=== PATIENT | male | born 2000 | race African-American/Black ===

== ENCOUNTER 2024-07-18 09:14 | Emergency (ER) | payer MEDICAID, SELFPAY ==
[2024-07-18 09:15] VITALS: BMI 24.4
[2024-07-18 09:24] VITALS: BP 113/81; PULSE 81; RESP 16; TEMP 37.1; O2SAT 95; BMI 27.3
--- NOTE | 2024-07-18 09:30 | PD.EDSEIZ ---
ED Seizures RME/HPI General Chief Complaint: Seizure Stated Complaint: POSSIBLE SZ THIS AM OR LAST NIGHT HX OF Time Seen by Provider: 07/18/24 09:17 Arrival date/time: 07/18/24 09:14 23-year-old male with seizure disorder currently on Keppra presents to the emergency department today stating that he had a seizure last night. Patient ports no head injury or neck injury patient reports no chest pain or shortness of breath or abdominal pain patient reports he feels fine at this time just wanted to be evaluated Limitations: no limitations Related Data Home Medications ?Medication ?Instructions ?Recorded ?Confirmed levetiracetam 1,000 mg tablet 1,000 mg PO BID 02/03/23 07/06/23 levetiracetam 1,000 mg tablet 1,500 mg PO BID 07/06/23 07/06/23 (Keppra) Previous Rx's ?Medication ?Instructions ?Recorded levetiracetam 1,000 mg tablet 1,000 mg PO BID #60 tabs 04/05/23 (Keppra) amoxicillin 875 mg-potassium 1 tab PO BID #14 tabs 07/08/23 clavulanate 125 mg tablet doxycycline hyclate 100 mg capsule 100 mg PO BID #14 caps 07/08/23 ibuprofen 600 mg tablet 600 mg PO Q8H PRN fever or pain 01/03/24 #20 tabs Allergies Allergy/AdvReac Type Severity Reaction Status Date / Time No Known Allergies Allergy Verified 07/18/24 09:19 Review of Systems Review of Systems Systems Reviewed: All systems reviewed, normal except as documented Constitutional Constitutional: Reports system reviewed and no additional complaints, except as documented, Denies fever(s) and Denies headache(s) Eyes Eyes: Reports system reviewed and no additional complaints, except as documented and Denies blurry vision ENT Ears, Nose, Mouth, and Throat: Reports system reviewed and no additional complaints, except as documented, Denies headache(s), Denies nasal congestion and Denies nasal discharge Cardiovascular Cardiovascular: Reports system reviewed and no additional complaints, except as documented, Denies chest pain and Denies dyspnea Respiratory Respiratory: Reports system reviewed and no additional complaints, except as documented, Denies chest congestion, Denies cough and Denies dyspnea Gastrointestinal Gastrointestinal: Reports system reviewed and no additional complaints, except as documented and Denies abdominal pain Integumentary/Breasts Skin/Breast: Reports system reviewed and no additional complaints, except as documented and Denies rash Neurologic Neurologic: Reports system reviewed and no additional complaints, except as documented, Reports as per HPI and Denies headache(s) Past Medical History Past Medical History NEUROLOGIC: Negative Neurological Disorders CARDIAC: Negative Cardiac Disorders ED Exam General Limitations: Present no limitations General appearance: Present alert and in no apparent distress Head Head exam: Present atraumatic, normocephalic and normal inspection Eye Eye exam: Present normal appearance, PERRL and EOMI; Absent conjunctival injection ENT ENT exam: Present normal exam, normal oropharynx and mucous membranes moist Neck Neck exam: Present normal inspection, full ROM and trachea midline Chest Chest inspection: Present normal inspection and symmetric chest wall rise Respiratory Respiratory exam: Present normal lung sounds bilaterally; Absent respiratory distress Cardiovascular Cardiovascular exam: Present regular rate, normal rhythm and normal heart sounds Abdominal Exam Abdominal exam: Present soft and normal bowel sounds; Absent distention, tenderness, guarding, rebound or rigidity Extremities Exam Extremities exam: Present normal inspection and full ROM Back Exam Back exam: Present normal inspection and full ROM Neurological Exam Neurological exam: Present alert, oriented X3, CN II-XII intact, normal gait and reflexes normal; Absent motor sensory deficit Psychiatric Psychiatric exam: Present normal affect and normal mood Skin Skin exam: Present warm, dry, intact and normal color Course Quality Measures none Vital Signs Vital signs: Vital Signs Temperature 98.7 F 07/18/24 09:24 Pulse Rate 81 07/18/24 09:24 Respiratory Rate 16 07/18/24 09:24 Blood Pressure 113/81 07/18/24 09:24 Pulse Oximetry (%) 95 07/18/24 09:24 Oxygen Delivery Method Room Air 07/18/24 09:24 O2 saturation 95% room air within normal limits Seizure MDM Narrative MDM Narrative:: 23-year-old male with seizure disorder currently on Keppra presents to the emergency department today stating that he had a seizure last night. Patient ports no head injury or neck injury patient reports no chest pain or shortness of breath or abdominal pain patient reports he feels fine at this time just wanted to be evaluated On exam patient well-appearing patient walks with steady gait patient has no abnormal neurological findings Patient reports that he took his Keppra today and take his Keppra regularly As patient has no abnormal neurological findings patient walks with steady gait patient will be discharged home Patient discharged home in no distress to follow-up with primary care doctor in the next 24 to 48 hours and for any worsening symptoms to return to the ER immediately Patient data External records reviewed:: [facility] previous records Clinical information provided by:: patient Social determinants that could affect healthcare access:: none Patient has the following chronic illnesses:: None How is presenting disease/condition affected by chronic disease/condition?: no chronic disease Evaluation data The following diagnostics were reviewed and interpreted by me:: other (specify) (N/A) Lab and/or radiology exams considered but not ordered:: Consider not ordered Interpretation Summary: N/A Medications / Prescriptions Medications or Prescriptions considered but not ordered:: No meds Medication administrations:: No meds Consultations Consultation(s) initiated? (list below): No Diagnosis Seizure Differential Diagnosis: intractable seizure disorder, febrile convulsion, focal seizure, generalized seizure, new onset seizure and epileptic seizure Most likely diagnosis given after review of the tests above:: Seizure breakthrough Admission Indicated Admission indicated?: not indicated Admission Request Was there a request for admission?: No Disposition Plan Disposition Plan: Discharge Discharge Attestation Discharge Attestation: The patient and all family members were given an opportunity to ask questions and understood the discharge instructions. Discharge instructions specifically effects, indications for sooner follow up or return to the emergency department, and the expected course of current diagnosis. Patient condition: Stable Discharge Plan Plan Patient Disposition: HOME (Self Care) Disposition Comment: Stable Prescriptions/Referrals Prescriptions/Med Rec: No Action levetiracetam [Keppra] 1,000 mg tablet 1,000 mg PO BID Qty: 60 0RF Patient Comments: Dose been changed. levetiracetam [Keppra] 1,000 mg tablet 1,500 mg PO BID amoxicillin-pot clavulanate 875-125 mg tablet 1 tab PO BID Qty: 14 0RF doxycycline hyclate 100 mg capsule 100 mg PO BID Qty: 14 0RF ibuprofen 600 mg tablet 600 mg PO Q8H PRN (Reason: fever or pain) Qty: 20 0RF levetiracetam 1,000 mg tablet 1,000 mg PO BID Patient Comments: take 1 tablet by mouth twice a day Problem List Clinical Impression: Breakthrough seizure Patient/Caregiver Discharge Instructions Education Materials: ED Seizure, Recurrent (Adult) Additional Instructions: Please follow up with your primary care doctor in the next 24-48hrs for any worsening symptoms return here immediately Print Language: Divehi Stand Alone Forms: Lucille Award Info., Patient Portal Info Letter PA/SEMICONDUCTOR TESTING GROUP LEADER Supervising Physician PA/SEMICONDUCTOR TESTING GROUP LEADER Supervising Physician: Dr Saez
== END 2024-07-18 09:44 | disposition home or self-care (01) ==
LOC: SERX 09:38
PROVIDERS: Emergency Provider Emergency Medicine
DX: R56.9 Unspecified convulsions (principal)
CPT/HCPCS: 99281

== ENCOUNTER 2024-07-23 00:33 | Emergency (ER) | payer MEDICAID, SELFPAY ==
[2024-07-23 00:34] VITALS: BMI 27.2
[2024-07-23 00:39] VITALS: BP 98/65; PULSE 76; RESP 18; TEMP 36.6; O2SAT 96
--- NOTE | 2024-07-23 01:16 | PD.EDMALE ---
ED Male Genitalurinary RME/HPI General Chief complaint: Abdominal Pain Stated complaint: LEFT GROIN PAIN Time Seen by Provider: 07/23/24 00:57 Arrival date/time: 07/23/24 00:33 23M with history of seizures presents to ED with L inner thigh/groin pain. Patient denies fall/trauma, penile discharge, flank pain, testicular pain, and hematuria/dysuria. Limitations: no limitations Related Data Home Medications ?Medication ?Instructions ?Recorded ?Confirmed levetiracetam 1,000 mg tablet 1,000 mg PO BID 02/03/23 07/06/23 levetiracetam 1,000 mg tablet 1,500 mg PO BID 07/06/23 07/06/23 (Keppra) Previous Rx's ?Medication ?Instructions ?Recorded levetiracetam 1,000 mg tablet 1,000 mg PO BID #60 tabs 04/05/23 (Keppra) amoxicillin 875 mg-potassium 1 tab PO BID #14 tabs 07/08/23 clavulanate 125 mg tablet doxycycline hyclate 100 mg capsule 100 mg PO BID #14 caps 07/08/23 ibuprofen 600 mg tablet 600 mg PO Q8H PRN fever or pain 01/03/24 #20 tabs Allergies Allergy/AdvReac Type Severity Reaction Status Date / Time No Known Allergies Allergy Verified 07/23/24 00:35 Review of Systems Review of Systems Systems Reviewed: All systems reviewed, normal except as documented Constitutional Constitutional: Reports system reviewed and no additional complaints, except as documented, Denies fever(s) and Denies headache(s) ENT Ears, Nose, Mouth, and Throat: Denies disequilibrium and Denies headache(s) Cardiovascular Cardiovascular: Reports system reviewed and no additional complaints, except as documented, Denies chest pain and Denies dyspnea Respiratory Respiratory: Reports system reviewed and no additional complaints, except as documented, Denies cough and Denies dyspnea Gastrointestinal Gastrointestinal: Reports system reviewed and no additional complaints, except as documented, Denies abdominal pain, Denies nausea and Denies vomiting Musculoskeletal Musculoskeletal: Reports as per HPI, Reports muscle cramps (pain) and Reports radiating pain into limb Neurologic Neurologic: Reports system reviewed and no additional complaints, except as documented, Denies confusion, Denies disequilibrium and Denies headache(s) Psychiatric Psychiatric: Denies confusion Past Medical History Past Medical History NEUROLOGIC: Positive Seizures; Negative Neurological Disorders CARDIAC: Negative Cardiac Disorders or Congestive Heart Failure RESPIRATORY: Negative Chronic Obstructive Pulmonary Disease (COPD) GENITOURINARY: Negative Renal Disease ENDOCRINE: Negative Diabetes Mellitus Type 1 or Diabetes Mellitus Type 2 OTHER HISTORY: Positive Hospitalization; Negative Blood Transfusions, Blood Transfusion Reaction or Anesthesia Reactions Social History SMOKING STATUS: Current some day smoker ED Exam General Limitations: Present no limitations General appearance: Present alert and in no apparent distress Head Head exam: Present atraumatic Eye Eye exam: Present normal appearance, PERRL and EOMI ENT ENT exam: Present normal exam, normal oropharynx and mucous membranes moist Neck Neck exam: Present normal inspection, full ROM and trachea midline Chest Chest inspection: Present normal inspection and symmetric chest wall rise Respiratory Respiratory exam: Present normal lung sounds bilaterally Cardiovascular Cardiovascular exam: Present regular rate, normal rhythm and normal heart sounds Abdominal Exam Abdominal exam: Present soft and normal bowel sounds Extremities Exam Extremities exam: Present normal inspection and full ROM Back Exam Back exam: Present normal inspection and full ROM Neurological Exam Neurological exam: Present alert, oriented X3 and CN II-XII intact Psychiatric Psychiatric exam: Present normal affect and normal mood Skin Skin exam: Present warm, dry, intact and normal color Course Quality Measures none Vital Signs Vital signs: Vital Signs Temperature 98 F 07/23/24 00:39 Pulse Rate 76 07/23/24 00:39 Respiratory Rate 18 07/23/24 00:39 Blood Pressure 98/65 07/23/24 00:39 Pulse Oximetry (%) 96 07/23/24 00:39 Oxygen Delivery Method Room Air 07/23/24 00:39 O2 at 96% on RA and WNLs Urogenital - Male MDM Narrative MDM Narrative:: 23M with history of seizures presents to ED with L inner thigh/groin pain. Patient denies fall/trauma, penile discharge, flank pain, testicular pain, and hematuria/dysuria. Physical exam with fabric awning repairer reveals no inguinal canal mass or tenderness. No testicular tenderness. Pain is with ROM of LLE. Patient is afebrile, calm, and alert. Likely inguinal region muscle injury. Window/Distribution Clerk given. Patient data External records reviewed:: [facility] previous records Clinical information provided by:: patient Social determinants that could affect healthcare access:: none Patient has the following chronic illnesses:: seizures How is presenting disease/condition affected by chronic disease/condition?: uneffected by Evaluation data The following diagnostics were reviewed and interpreted by me:: other (specify) (none) Lab and/or radiology exams considered but not ordered:: not ordered Interpretation Summary: n/a Medications / Prescriptions Medications or Prescriptions considered but not ordered:: not ordered Medication administrations:: n/a Consultations Consultation(s) initiated? (list below): No Diagnosis Urogenital Male Differential Diagnosis: urinary tract infection, priapism, urethritis, epididymitis, genital herpes simplex, prostatitis, acute retention of urine, inguinal hernia and other (inguinal muscle injury) Most likely diagnosis given after review of the tests above:: inguinal muscle injury Admission Indicated Admission indicated?: not indicated Admission Request Was there a request for admission?: No Disposition Plan Disposition Plan: Discharge Discharge Attestation Discharge Attestation: The patient and all family members were given an opportunity to ask questions and understood the discharge instructions. Discharge instructions specifically effects, indications for sooner follow up or return to the emergency department, and the expected course of current diagnosis. Patient condition: Stable Discharge Plan Plan Patient Disposition: HOME (Self Care) Disposition Comment: Stable Prescriptions/Referrals Prescriptions/Med Rec: No Action levetiracetam [Keppra] 1,000 mg tablet 1,000 mg PO BID Qty: 60 0RF Patient Comments: Dose been changed. levetiracetam [Keppra] 1,000 mg tablet 1,500 mg PO BID amoxicillin-pot clavulanate 875-125 mg tablet 1 tab PO BID Qty: 14 0RF doxycycline hyclate 100 mg capsule 100 mg PO BID Qty: 14 0RF ibuprofen 600 mg tablet 600 mg PO Q8H PRN (Reason: fever or pain) Qty: 20 0RF levetiracetam 1,000 mg tablet 1,000 mg PO BID Patient Comments: take 1 tablet by mouth twice a day Problem List Clinical Impression: Injury of muscle of left inguinal region Patient/Caregiver Discharge Instructions Education Materials: ED Myalgias Additional Instructions: Please follow-up with PCP within 24-48 hours and return immediately if symptoms worsen. If problem persists, recommend outpatient PT and/or MRI follow-up. In the meantime, rest, use ice/heat, and/or compression. Print Language: Guatemalan Stand Alone Forms: Patient Portal Info Letter DANTE/RAFI Supervising Physician DANTE/RAFI Supervising Physician: Dr. Nathan
== END 2024-07-23 01:03 | disposition home or self-care (01) ==
LOC: SERX 01:00
PROVIDERS: Emergency Provider Emergency Medicine
DX: S39.001A Unspecified injury of muscle, fascia and tendon of abdomen, initial encounter (principal); X58.XXXA Exposure to other specified factors, initial encounter
CPT/HCPCS: 99281

== ENCOUNTER 2024-08-14 16:16 | Emergency (ER) | payer MEDICAID, SELFPAY ==
[2024-08-14 16:22] VITALS: BP 121/77; PULSE 88; RESP 18; TEMP 37.1; O2SAT 100
--- NOTE | 2024-08-14 16:39 | PD.EDSEIZ ---
ED Seizures RME/HPI General Chief Complaint: Seizure Stated Complaint: SEIZURES Time Seen by Provider: 08/14/24 16:37 Arrival date/time: 08/14/24 16:16 RME / HPI RME / HPI Narrative: 23 year old male with history of epilepsy presents to the ED BIBA from home for evaluation of seizure today. Per medics, family on scene reported witnessing 10 seizures today while laying in bed, described as the patient shaking. No falls or injuries reported. On their arrival noted patient to be postictal. Prehospital BS 51 and given D10 with improvement to 208. Family additionally reported the patient had recent dental work performed and is currently on Amoxicillin. While in the ED patient reports a mild headache otherwise no other complaints. Denies fevers, chills, chest pain, cough, shortness of breath, abdominal pain, n/v/d, or urinary symptoms. Related Data Home Medications ?Medication ?Instructions ?Recorded ?Confirmed levetiracetam 1,000 mg tablet 1,000 mg PO BID 02/03/23 07/06/23 levetiracetam 1,000 mg tablet 1,500 mg PO BID 07/06/23 07/06/23 (Keppra) Previous Rx's ?Medication ?Instructions ?Recorded levetiracetam 1,000 mg tablet 1,000 mg PO BID #60 tabs 04/05/23 (Keppra) amoxicillin 875 mg-potassium 1 tab PO BID #14 tabs 07/08/23 clavulanate 125 mg tablet doxycycline hyclate 100 mg capsule 100 mg PO BID #14 caps 07/08/23 ibuprofen 600 mg tablet 600 mg PO Q8H PRN fever or pain 01/03/24 #20 tabs Allergies Allergy/AdvReac Type Severity Reaction Status Date / Time No Known Allergies Allergy Verified 08/14/24 16:52 Review of Systems Review of Systems Narrative Review of Systems: GEN: No fever, no chills, no weight loss EYES: No discharge, no visual changes, no pain HEENT: No ear pain, no congestion, no sore throat PULM: No shortness of breath, no cough, no congestion CV: No chest pain, no dyspnea on exertion, no palpitations GI: No nausea, no vomiting, no diarrhea, no pain, no constipation : No frequency, no urgency and no dysuria MUSC/SKEL No joint pain, no back pain SKIN: No rash PSYCH: No hallucinations, no depression HEME/LYMPH: No easy bleeding or bruising tendencies NEURO: No weakness, + headache, +seizure ED Exam Narrative Physical exam: GENERAL APPEARANCE: Well hydrated, well nourished, still slightly confused most likely postictal. VITALS: All vitals were reviewed and the pulse ox is 100% on 4L which is normal according to my interpretation. HEENT: Normocephalic, atramatic, EOMI, EACs are patent. There is no bulge or retraction. Examination of teeth reveals no bleeding or abscess. Throat without erythema or exudate. Moist oromucosa. No jaundice NECK: Supple, no JVD or bruits. CARDIOVASCULAR: Heart regular without S3-S4 or murmur. No rubs or gallops. LUNGS/CHEST: Clear to auscultation bilaterally. No rales, rhonchi, or wheezing. Normal inspection. ABDOMEN: Soft, nontender, with normal bowel sounds. No pulsatile masses. No rebound, rigidity, or guarding. No incarcerated hernia. Normal inspection and palpation. EXTREMITIES: Normal inspection and palpation. No edema, clubbing, or cyanosis. Intact CSM SKIN: Warm and dry without rashes. Normal inspection. MUSCULOSKELETAL: Normal inspection. No gross deformity, full ROM all extremities NEURO: Still slightly confused most likely still postictal. Cranial nerves II through XII grossly intact. There are no other motor or sensory deficits noted. PSYCHIATRIC: Normal mood and affect. No psychosis. Course Quality Measures none Orders Category Date Time Status Saline [Insert IV] NOW Care 08/14/24 17:[address] head/brain wo con Stat Exams 08/14/24 17:01 Ordered Alcohol, Blood Medical Stat Lab 08/14/24 17:25 Received CBC Stat Lab 08/14/24 17:25 Received CMP [Comprehensive Metabolic Panel] Stat Lab 08/14/24 17:25 Received Drug Screen,Urine Stat Lab 08/14/24 17:02 Ordered Lactic Acid [Lactate (Lactic Acid)] Stat Lab 08/14/24 17:25 Results levETIRAcetam INJ [Keppra Inj] Med 08/14/24 17:03 Discontinued 1,000 mg IVP X1 ONE Vital Signs Vital signs: Vital Signs Temperature 98.8 F 08/14/24 16:22 Pulse Rate 88 08/14/24 16:22 Respiratory Rate 18 08/14/24 16:22 Blood Pressure 121/77 08/14/24 16:22 Pulse Oximetry (%) 100 08/14/24 16:22 Oxygen Delivery Method Nasal Cannula 08/14/24 16:22 Oxygen Flow Rate 6 08/14/24 16:22 Seizure MDM Narrative MDM Narrative:: Shaniqua Lynn am scribing for and in the presence of Dr. Saez. The patient is here for recurrent seizure. Reportedly he is on Keppra 1000 mg p.o. twice daily. 6 PM the patient is still pending blood tests urine test and CT brain, the patient is stable and in is now signed out to . I went ahead and gave the patient 1 g of Keppra IV Patient data External records reviewed:: [facility] previous records (I reviewed ED visit on 07/18/2024 for breakthrough seizure) and EMS form Clinical information provided by:: patient and EMS Social determinants that could affect healthcare access:: none Patient has the following chronic illnesses:: Epilepsy How is presenting disease/condition affected by chronic disease/condition?: exacerbated by Evaluation data The following diagnostics were reviewed and interpreted by me:: lab results and radiology exam(s) Lab and/or radiology exams considered but not ordered:: None Interpretation Summary: As noted above Medications / Prescriptions Medications or Prescriptions considered but not ordered:: None Medication administrations:: Medication Administration History Discontinued Medications Levetiracetam (Levetiracetam Inj 100 Mg/Ml Vial 5ml) 1,000 mg IVP X1 ONE Stop: 08/14/24 17:04 Last Admin: 08/14/24 17:16 Dose: 1,000 mg Documented By: MP See above Consultations Consultation(s) initiated? (list below): No Diagnosis Seizure Differential Diagnosis: intractable seizure disorder, focal seizure, generalized seizure, epileptic seizure and status epilepticus Most likely diagnosis given after review of the tests above:: Recurrent seizure Admission Indicated Admission indicated?: not indicated Explain why admission is indicated or not indicated:: Patient signed out to Dr. Orourke pending head CT and labs. Admission Request Was there a request for admission?: No Disposition Plan Disposition Plan: other (specify) (Patient signed out to Dr. Orourke pending CT and labs ) Discharge Plan Plan Disposition Comment: Stable at signout Prescriptions/Referrals Prescriptions/Med Rec: No Action levetiracetam [Keppra] 1,000 mg tablet 1,000 mg PO BID Qty: 60 0RF Patient Comments: Dose been changed. levetiracetam [Keppra] 1,000 mg tablet 1,500 mg PO BID amoxicillin-pot clavulanate 875-125 mg tablet 1 tab PO BID Qty: 14 0RF doxycycline hyclate 100 mg capsule 100 mg PO BID Qty: 14 0RF ibuprofen 600 mg tablet 600 mg PO Q8H PRN (Reason: fever or pain) Qty: 20 0RF levetiracetam 1,000 mg tablet 1,000 mg PO BID Patient Comments: take 1 tablet by mouth twice a day Problem List Clinical Impression: Recurrent seizures Patient/Caregiver Discharge Instructions Print Language: Indonesian
--- NOTE | 2024-08-14 17:01 | XR_ITS ---
Examination: CT brain head without contrast. 2-D sagittal coronal reconstructions Date and time of exam:August 14, 2024 1900 hrs. Indications: Onset seizure activity today CTDI: vol (mGy):55.7 DLP: (mGycm):1076 Technique: Multiple CT axial sections of the brain have been obtained, 5 mm slice thickness. Contrast has not been administered. 2-D sagittal, coronal reconstructions have been obtained Low dose protocols were performed. One or more of the following dose reduction techniques were used; automated exposure control, adjustment of the mA and/or KV according to patient size, use of iterative reconstruction technique. Findings: No significant ventricular enlargement. Intra-axial or extra-axial hemorrhage density is not seen. No mass effect or midline shift Basal cisterns are not remarkable. Fourth ventricle is midline. Cranial vault intact. Impression: Negative for acute hemorrhage, mass effect or midline shift Consider elective brain MRI follow-up, pre and postcontrast, seizure protocol
[2024-08-14 17:04] VITALS: PULSE 82; RESP 18; O2SAT 100; BMI 21.5
[2024-08-14] MEDS: levETIRAcetam INJ 100 MG/ML VIAL 5ML 1000 MG IVP (17:16)
[2024-08-14 17:33] LABS: Lactate (Lactic Acid) 2.2 mMol/L (0.4-2.0)
[2024-08-14 17:36] LABS: Basophils % (Auto) 0 % (0-2.5); Eosinophils % (Auto) 0 % (0-10); Hematocrit 44.4 % (41.0-53.0); Hemoglobin 15.3 g/dL (13.5-16.0); Immature Granulocytes % (Auto) 1 % (0-0); Immature Granulocytes Auto 0.11 Thou/mm3 (0.00-0.00); Lymphocytes # (Auto) 0.4 Thou/mm3 (1.0-4.8); Lymphocytes % (Auto) 2 % (10-50); Mean Corpuscular HGB Conc 34.5 g/dl (31.0-37.0); Mean Corpuscular Hemoglobin 30.8 pg (25.0-35.0); Mean Corpuscular Volume 90 fL (80-100); Monocytes # (Auto) 1.1 Thou/mm3 (0.0-0.8); Monocytes % (Auto) 6 % (0-12); Neutrophils # (Auto) 17.2 Thou/mm3 (1.8-7.7); Neutrophils % (Auto) 91 % (37-80); Nucleated Red Blood Cell % 0 /100 WBC (0); Platelet Count 209 Thou/mm3 (140-440); Red Blood Count 4.96 Miln/mm3 (4.50-5.90); White Blood Count 18.8 Thou/mm3 (3.8-10.6)
[2024-08-14 17:57] LABS: Alanine Aminotransferase 29 U/L (10-49); Albumin, Serum 5.1 gm/dL (3.5-5.0); Albumin/Globulin Ratio 1.8 (1.2-2.2); Alcohol, Blood Medical < 3.0 mg/dL (0-10.0); Alkaline Phosphatase 68 U/L (46-116); Anion Gap 12 (7-16); Aspartate Amino Transferase 41 U/L (0-34); BUN/Creatinine Ratio 10 Ratio (12-20); Bilirubin,Total 0.9 mg/dL (0.3-1.2); Blood Urea Nitrogen 14 mg/dL (9-23); Calcium 9.8 mg/dL (8.3-10.6); Calcium (Corrected) 9.8 mg/dL (8.5-10.1); Carbon Dioxide 18.6 mMol/L (20.0-31.0); Chloride 106 mMol/L (98-107); Creatinine (Component) 1.4 mg/dL (0.6-1.3); Estimated Creatinine Clearance 77.6 mL/min (>60); Globulin 2.9 gm/dL (2.3-3.5); Glucose 67 mg/dL (74-106); Osmolality,Calculated 272 (275-295); Potassium 4.7 mMol/L (3.4-5.1); Sodium 137 mMol/L (136-145); eGFR > 60 See Note
--- NOTE | 2024-08-14 18:17 | EDNOTE_ITS ---
Emergency Room Addendum Addendum Narrative: 1800: Care assumed from Dr. Saez, the previous shift emergency physician. Past medical, surgical, social and family history reviewed. Vitals and home medications reviewed. Results and treatment plan discussed. I will assume the care of the patient at this time and will follow the patient, pending CT head. Please refer to the emergency department record for history and examination from initial visit. 2039: Patient is resting comfortably and has remained stable while under my care. Discussed results with the patient. He states he has plenty of his seizure medications at home and does not need any refills. Patient is stable to be discharged home. RADIOLOGY RESULTS: [facility] Report Signed Patient: RAHEL LEWIS. Record#: [id number] Birthdate: 2000 Age/Sex: 23 / M Location: [facility] Attending Dr: Ordering Physician: Branden Saez MD Date of Service: 08/14/24 Procedure(s): CT head/brain wo con Accession Number(s): [id number] cc: Sin aCbrera MD; Branden Saez MD~ Examination: CT brain head without contrast. 2-D sagittal coronal reconstructions Date and time of exam:August 14, 2024 1900 hrs. Indications: Onset seizure activity today CTDI: vol (mGy):55.7 DLP: (mGycm):1076 Technique: Multiple CT axial sections of the brain have been obtained, 5 mm slice thickness. Contrast has not been administered. 2-D sagittal, coronal reconstructions have been obtained Low dose protocols were performed. One or more of the following dose reduction techniques were used; automated exposure control, adjustment of the mA and/or KV according to patient size, use of iterative reconstruction technique. Findings: No significant ventricular enlargement. Intra-axial or extra-axial hemorrhage density is not seen. No mass effect or midline shift Basal cisterns are not remarkable. Fourth ventricle is midline. Cranial vault intact. Impression: Negative for acute hemorrhage, mass effect or midline shift Consider elective brain MRI follow-up, pre and postcontrast, seizure protocol Dictated By: Sin Cabrera MD Signed By: <Electronically signed by iSn Cabrera MD in OV> 08/14/241942
[2024-08-14 19:42] LABS: Amphetamine/Methamp Scrn,U Negative (Negative); Barbiturate Screen,Urine Negative (Negative); Benzodiazepines Screen,Urine Negative (Negative); Benzoylecgonine Screen, Ur Negative (Negative); Fentanyl Screen,Urine Negative (Negative); Opiate Screen,Urine Negative (Negative); THC Screen,Urine Positive (Negative)
[2024-08-14] MEDS: ACETAMINOPHEN 325 MG TABLET 650 MG PO (19:55)
[2024-08-14] MEDS: ONDANSETRON INJ 2 MG/ML INJ 2 ML 4 MG IV (20:00)
[2024-08-14 20:31] LABS: Reflex Lactate? Y
== END 2024-08-14 21:10 | disposition home or self-care (01) ==
PROVIDERS: Emergency Medicine; Emergency Provider Emergency Medicine; PCP Family Medicine
DX: R56.9 Unspecified convulsions (principal)
CPT/HCPCS: 36415; 70450; 80053; 80307; 80320; 83605; 85025; 96374; 96375; 99284; J1953; J2405; A9270; G0480

== ENCOUNTER 2024-09-20 05:30 | Emergency (ER) | payer MEDICAID, SELFPAY ==
[2024-09-20 05:30] VITALS: BMI 26.4
[2024-09-20 05:55] VITALS: BP 119/76; PULSE 79; RESP 17; TEMP 36.6; O2SAT 97
[2024-09-20] MEDS: levETIRAcetam 250 MG TABLET 1000 MG PO (06:35)
--- NOTE | 2024-09-20 07:27 | PD.EDSEIZ ---
ED Seizures RME/HPI General Chief Complaint: Seizure Stated Complaint: SEIZURE Time Seen by Provider: 09/20/24 06:24 Arrival date/time: 09/20/24 05:30 23-year-old male with seizure disorder presents the emergency department today stating that he ran out of his medication last dose he took last night patient reports he needs refill on his medication. Patient reports last seizure yesterday patient does report seizures on a regular basis patient reports no headache dizziness weakness chest pain or shortness of breath at this time Limitations: no limitations Related Data Home Medications ?Medication ?Instructions ?Recorded ?Confirmed levetiracetam 1,000 mg tablet 1,000 mg PO BID 02/03/23 07/06/23 levetiracetam 1,000 mg tablet 1,500 mg PO BID 07/06/23 07/06/23 (Keppra) Previous Rx's ?Medication ?Instructions ?Recorded levetiracetam 1,000 mg tablet 1,000 mg PO BID #60 tabs 04/05/23 (Keppra) amoxicillin 875 mg-potassium 1 tab PO BID #14 tabs 07/08/23 clavulanate 125 mg tablet doxycycline hyclate 100 mg capsule 100 mg PO BID #14 caps 07/08/23 ibuprofen 600 mg tablet 600 mg PO Q8H PRN fever or pain 01/03/24 #20 tabs levetiracetam 1,000 mg tablet 1,000 mg PO BID 30 days #60 tabs 09/20/24 (Keppra) Allergies Allergy/AdvReac Type Severity Reaction Status Date / Time No Known Allergies Allergy Verified 08/14/24 16:52 Review of Systems Review of Systems Systems Reviewed: All systems reviewed, normal except as documented Constitutional Constitutional: Reports system reviewed and no additional complaints, except as documented, Denies fever(s), Denies headache(s) and Denies weakness Eyes Eyes: Reports system reviewed and no additional complaints, except as documented, Denies blurry vision and Denies loss of vision ENT Ears, Nose, Mouth, and Throat: Reports system reviewed and no additional complaints, except as documented, Denies disequilibrium, Denies dizziness, Denies headache(s), Denies nasal congestion, Denies nasal discharge and Denies vertigo Cardiovascular Cardiovascular: Reports system reviewed and no additional complaints, except as documented, Denies chest pain and Denies dyspnea Respiratory Respiratory: Reports system reviewed and no additional complaints, except as documented, Denies chest congestion, Denies cough and Denies dyspnea Gastrointestinal Gastrointestinal: Reports system reviewed and no additional complaints, except as documented and Denies abdominal pain Musculoskeletal Musculoskeletal: Denies numbness Integumentary/Breasts Skin/Breast: Reports system reviewed and no additional complaints, except as documented and Denies rash Neurologic Neurologic: Reports system reviewed and no additional complaints, except as documented, Reports as per HPI, Denies disequilibrium, Denies dizziness, Denies headache(s), Denies loss of vision, Denies memory loss, Denies numbness, Denies tremor(s), Denies vertigo and Denies weakness Psychiatric Psychiatric: Denies memory loss Past Medical History Past Medical History NEUROLOGIC: Positive Seizures; Negative Neurological Disorders CARDIAC: Negative Cardiac Disorders or Congestive Heart Failure RESPIRATORY: Negative Chronic Obstructive Pulmonary Disease (COPD) GENITOURINARY: Negative Renal Disease ENDOCRINE: Negative Diabetes Mellitus Type 1 or Diabetes Mellitus Type 2 OTHER HISTORY: Positive Hospitalization; Negative Blood Transfusions, Blood Transfusion Reaction or Anesthesia Reactions Social History SMOKING STATUS: Never smoker ED Exam General Limitations: Present no limitations General appearance: Present alert and in no apparent distress Head Head exam: Present atraumatic Eye Eye exam: Present normal appearance, PERRL and EOMI ENT ENT exam: Present normal exam, normal oropharynx and mucous membranes moist Neck Neck exam: Present normal inspection, full ROM and trachea midline Chest Chest inspection: Present normal inspection and symmetric chest wall rise Respiratory Respiratory exam: Present normal lung sounds bilaterally Cardiovascular Cardiovascular exam: Present regular rate, normal rhythm and normal heart sounds Abdominal Exam Abdominal exam: Present soft and normal bowel sounds Extremities Exam Extremities exam: Present normal inspection and full ROM Back Exam Back exam: Present normal inspection and full ROM Neurological Exam Neurological exam: Present alert, oriented X3, CN II-XII intact, normal gait and reflexes normal; Absent motor sensory deficit Psychiatric Psychiatric exam: Present normal affect and normal mood; Absent depressed, agitated or anxious Skin Skin exam: Present warm, dry, intact and normal color Course Quality Measures none Orders Category Date Time Status levETIRAcetam [Keppra] Med 09/20/24 06:25 Discontinued 1,000 mg PO X1 ONE Vital Signs Vital signs: Vital Signs Temperature 97.9 F 09/20/24 05:55 Pulse Rate 79 09/20/24 05:55 Respiratory Rate 17 09/20/24 05:55 Blood Pressure 119/76 09/20/24 05:55 Pulse Oximetry (%) 97 09/20/24 05:55 Oxygen Delivery Method Room Air 09/20/24 05:55 O2 saturation 97% room air within normal limits Seizure MDM Narrative MDM Narrative:: 23-year-old male with seizure disorder presents the emergency department today stating that he ran out of his medication last dose he took last night patient reports he needs refill on his medication. Patient reports last seizure yesterday patient does report seizures on a regular basis patient reports no headache dizziness weakness chest pain or shortness of breath at this time On exam patient well-appearing patient does not appear ill or toxic patient does not appear in acute distress patient walks with steady gait Patient given a dose of Keppra here discharge home with a prescription Patient discharged home in no distress to follow-up with primary care doctor in the next 24 to 48 hours and for any worsening symptoms to return to the ER immediately Patient data External records reviewed:: [facility] previous records Clinical information provided by:: patient Social determinants that could affect healthcare access:: substance use Patient has the following chronic illnesses:: Seizure disorder How is presenting disease/condition affected by chronic disease/condition?: caused by Evaluation data The following diagnostics were reviewed and interpreted by me:: other (specify) (N/A) Lab and/or radiology exams considered but not ordered:: Consider not ordered Interpretation Summary: N/A Medications / Prescriptions Medications or Prescriptions considered but not ordered:: Given Medication administrations:: Medication Administration History Discontinued Medications Levetiracetam (Levetiracetam 250 Mg Tablet) 1,000 mg PO X1 ONE Stop: 09/20/24 06:26 Last Admin: 09/20/24 06:35 Dose: 1,000 mg Documented By: CB Given Consultations Consultation(s) initiated? (list below): No Diagnosis Seizure Differential Diagnosis: intractable seizure disorder, febrile convulsion, focal seizure and status epilepticus Most likely diagnosis given after review of the tests above:: Seizure Admission Indicated Admission indicated?: not indicated Admission Request Was there a request for admission?: No Disposition Plan Disposition Plan: Discharge Discharge Attestation Discharge Attestation: The patient and all family members were given an opportunity to ask questions and understood the discharge instructions. Discharge instructions specifically effects, indications for sooner follow up or return to the emergency department, and the expected course of current diagnosis. Patient condition: Stable Discharge Plan Plan Patient Disposition: HOME (Self Care) Disposition Comment: Stable Prescriptions/Referrals Prescriptions/Med Rec: New levetiracetam [Keppra] 1,000 mg tablet 1,000 mg PO BID 30 Days Qty: 60 0RF No Action levetiracetam [Keppra] 1,000 mg tablet 1,000 mg PO BID Qty: 60 0RF Patient Comments: Dose been changed. levetiracetam [Keppra] 1,000 mg tablet 1,500 mg PO BID amoxicillin-pot clavulanate 875-125 mg tablet 1 tab PO BID Qty: 14 0RF doxycycline hyclate 100 mg capsule 100 mg PO BID Qty: 14 0RF ibuprofen 600 mg tablet 600 mg PO Q8H PRN (Reason: fever or pain) Qty: 20 0RF levetiracetam 1,000 mg tablet 1,000 mg PO BID Patient Comments: take 1 tablet by mouth twice a day Referrals: Jerome Wood MD [Primary Care Provider] - In 1 week Problem List Clinical Impression: Seizure disorder Patient/Caregiver Discharge Instructions Education Materials: Anatomy of the Brain Additional Instructions: Please follow up with your primary care doctor in the next 24-48hrs for any worsening symptoms return here immediately Print Language: Indonesian Stand Alone Forms: Lucille Award Info., Patient Portal Info Letter PA/RAFI Supervising Physician DANTE/RAFI Supervising Physician: Dr Orourke
--- NOTE | 2024-09-20 07:53 | PC.CC ---
Nohemy ZALDIVAR was consulted regarding transportation for the patient to return back home. ASW arranged [facility] for the patient.
== END 2024-09-20 13:34 | disposition home or self-care (01) ==
PROVIDERS: Emergency Provider Emergency Medicine; PCP Family Medicine
DX: Z76.0 Encounter for issue of repeat prescription (principal); G40.909 Epilepsy, unspecified, not intractable, without status epilepticus; Z79.899 Other long term (current) drug therapy
CPT/HCPCS: 99282; A9270

== ENCOUNTER 2024-12-13 20:15 | Emergency (ER) | payer MEDICAID, SELFPAY ==
[2024-12-13 20:17] VITALS: BMI 26.4
[2024-12-13 20:27] VITALS: BP 93/72; PULSE 88; RESP 18; TEMP 36.5; O2SAT 96
--- NOTE | 2024-12-13 20:57 | PD.EDMALE ---
ED Male Genitalurinary RME/HPI General Chief complaint: Abdominal Pain Stated complaint: RIGHT SIDE ABD PAIN, HX. HERNIA Time Seen by Provider: 12/13/24 20:40 Arrival date/time: 12/13/24 20:15 23M with history of seizures presents to ED with several years of intermittent R inguinal hernia pain. Patient states it's never popped, out before until today, but patient was able to push it back in himself. Patient denies N/V. Limitations: no limitations Related Data Home Medications ?Medication ?Instructions ?Recorded ?Confirmed levetiracetam 1,000 mg tablet 1,000 mg PO BID 02/03/23 07/06/23 levetiracetam 1,000 mg tablet 1,500 mg PO BID 07/06/23 07/06/23 (Keppra) Previous Rx's ?Medication ?Instructions ?Recorded levetiracetam 1,000 mg tablet 1,000 mg PO BID #60 tabs 04/05/23 (Keppra) amoxicillin 875 mg-potassium 1 tab PO BID #14 tabs 07/08/23 clavulanate 125 mg tablet doxycycline hyclate 100 mg capsule 100 mg PO BID #14 caps 07/08/23 ibuprofen 600 mg tablet 600 mg PO Q8H PRN fever or pain 01/03/24 #20 tabs Allergies Allergy/AdvReac Type Severity Reaction Status Date / Time No Known Allergies Allergy Verified 12/13/24 20:16 Review of Systems Review of Systems Systems Reviewed: All systems reviewed, normal except as documented Constitutional Constitutional: Reports system reviewed and no additional complaints, except as documented, Denies fever(s) and Denies headache(s) ENT Ears, Nose, Mouth, and Throat: Denies disequilibrium and Denies headache(s) Cardiovascular Cardiovascular: Reports system reviewed and no additional complaints, except as documented, Denies chest pain and Denies dyspnea Respiratory Respiratory: Reports system reviewed and no additional complaints, except as documented, Denies cough and Denies dyspnea Gastrointestinal Gastrointestinal: Reports system reviewed and no additional complaints, except as documented, Denies abdominal pain, Denies nausea and Denies vomiting Neurologic Neurologic: Reports system reviewed and no additional complaints, except as documented, Denies confusion, Denies disequilibrium and Denies headache(s) Psychiatric Psychiatric: Denies confusion Past Medical History Past Medical History NEUROLOGIC: Positive Seizures; Negative Neurological Disorders CARDIAC: Negative Cardiac Disorders or Congestive Heart Failure RESPIRATORY: Negative Chronic Obstructive Pulmonary Disease (COPD) GENITOURINARY: Negative Renal Disease ENDOCRINE: Negative Diabetes Mellitus Type 1 or Diabetes Mellitus Type 2 OTHER HISTORY: Positive Hospitalization; Negative Blood Transfusions, Blood Transfusion Reaction or Anesthesia Reactions Social History SMOKING STATUS: Never smoker ED Exam General Limitations: Present no limitations General appearance: Present alert and in no apparent distress Head Head exam: Present atraumatic Eye Eye exam: Present normal appearance, PERRL and EOMI ENT ENT exam: Present normal exam, normal oropharynx and mucous membranes moist Neck Neck exam: Present normal inspection, full ROM and trachea midline Chest Chest inspection: Present normal inspection and symmetric chest wall rise Respiratory Respiratory exam: Present normal lung sounds bilaterally Cardiovascular Cardiovascular exam: Present regular rate, normal rhythm and normal heart sounds Abdominal Exam Abdominal exam: Present soft and normal bowel sounds Extremities Exam Extremities exam: Present normal inspection and full ROM Back Exam Back exam: Present normal inspection and full ROM Neurological Exam Neurological exam: Present alert, oriented X3 and CN II-XII intact Psychiatric Psychiatric exam: Present normal affect and normal mood Skin Skin exam: Present warm, dry, intact and normal color Course Quality Measures none Vital Signs Vital signs: Vital Signs Temperature 97.7 F 12/13/24 20:27 Pulse Rate 88 12/13/24 20:27 Respiratory Rate 18 12/13/24 20:27 Blood Pressure 93/72 12/13/24 20:27 Pulse Oximetry (%) 96 12/13/24 20:27 Oxygen Delivery Method Room Air 12/13/24 20:27 O2 at 96% on RA and WNLs Urogenital - Male MDM Narrative MDM Narrative:: 23M with history of seizures presents to ED with several years of intermittent R inguinal hernia pain. Patient states it's never popped, out before until today, but patient was able to push it back in himself. Patient denies N/V. Physical exam with cogeneration technician reveals no evident R inguinal hernia, even with provocation. Gait normal. Patient is afebrile, calm, and alert. Track Moving Machine Operator given. Patient data External records reviewed:: [facility] previous records Clinical information provided by:: patient Social determinants that could affect healthcare access:: none Patient has the following chronic illnesses:: seizures How is presenting disease/condition affected by chronic disease/condition?: uneffected by Evaluation data The following diagnostics were reviewed and interpreted by me:: other (specify) (none) Lab and/or radiology exams considered but not ordered:: not ordered Interpretation Summary: n/a Medications / Prescriptions Medications or Prescriptions considered but not ordered:: not ordered Medication administrations:: n/a Consultations Consultation(s) initiated? (list below): No Diagnosis Urogenital Male Differential Diagnosis: urinary tract infection, priapism, urethritis, epididymitis, genital herpes simplex, prostatitis, acute retention of urine and inguinal hernia Most likely diagnosis given after review of the tests above:: inguinal hernia Admission Indicated Admission indicated?: not indicated Admission Request Was there a request for admission?: No Disposition Plan Disposition Plan: Discharge Discharge Attestation Discharge Attestation: The patient and all family members were given an opportunity to ask questions and understood the discharge instructions. Discharge instructions specifically effects, indications for sooner follow up or return to the emergency department, and the expected course of current diagnosis. Patient condition: Stable Discharge Plan Plan Patient Disposition: HOME (Self Care) Discharge Disposition comment: Stable Prescriptions/Referrals Prescriptions/Med Rec: No Action levetiracetam [Keppra] 1,000 mg tablet 1,000 mg PO BID Qty: 60 0RF Patient Comments: Dose been changed. levetiracetam [Keppra] 1,000 mg tablet 1,500 mg PO BID amoxicillin-pot clavulanate 875-125 mg tablet 1 tab PO BID Qty: 14 0RF doxycycline hyclate 100 mg capsule 100 mg PO BID Qty: 14 0RF ibuprofen 600 mg tablet 600 mg PO Q8H PRN (Reason: fever or pain) Qty: 20 0RF levetiracetam 1,000 mg tablet 1,000 mg PO BID Patient Comments: take 1 tablet by mouth twice a day Problem List Clinical Impression: Inguinal hernia Patient/Caregiver Discharge Instructions Education Materials: ED Hernia (Adult) Additional Instructions: Please follow-up with PCP within 24-48 hours and return immediately if symptoms worsen. Recommend seeing PCP for referral to general surgeon for elective outpatient hernia repair. Print Language: Croatian Stand Alone Forms: Patient Portal Info Letter PA/HEAD OF DATA Supervising Physician DANTE/HEAD OF DATA Supervising Physician: Dr. Aguilar
== END 2024-12-13 20:47 | disposition home or self-care (01) ==
LOC: SERX 20:42
PROVIDERS: Emergency Provider Emergency Medicine; PCP Family Medicine
DX: K40.90 Unilateral inguinal hernia, without obstruction or gangrene, not specified as recurrent (principal)
CPT/HCPCS: 99281

== ENCOUNTER 2025-02-04 10:28 | Emergency (ER) | payer MEDICAID, SELFPAY ==
[2025-02-04 10:29] VITALS: BMI 22.9
[2025-02-04 10:39] VITALS: BP 111/73; PULSE 68; RESP 18; TEMP 36.7; O2SAT 96; BMI 25.8
--- NOTE | 2025-02-04 11:01 | XR_ITS ---
Examination: CT brain head without contrast. 2-D sagittal coronal reconstructions Date and time of exam:02/04/2025 1143 hrs Indication. today, seizure Technique: Multiple CT axial sections of the brain have been obtained, 5 mm slice thickness. Contrast has not been administered. 2-D sagittal, coronal reconstructions have been obtained Low dose protocols were performed. One or more of the following dose reduction techniques were used; automated exposure control, adjustment of the mA and/or KV according to patient size, use of iterative reconstruction technique. Findings: No significant ventricular enlargement. Intra-axial or extra-axial hemorrhage density is not seen. No mass effect or midline shift Basal cisterns are not remarkable. Fourth ventricle is midline. Cranial vault intact. Impression: Negative for acute hemorrhage, mass effect or midline shift
--- NOTE | 2025-02-04 11:01 | XR_ITS ---
Examination: CT cervical spine without contrast 2-D sagittal reconstructions 2-D coronal reconstructions 3-D reconstructions. Exam date and time:47 hours Indications: Seizure patient fell today with injury to the neck, neck pain CTDI:vol (mGy) 10.1 DLP: (mGycm) 03. 239 Technique: Multiple 2 mm axial sections of the cervical spine have been obtained. The coronal and sagittal reconstructions have been obtained. 3-D reconstructions have been obtained. Low dose protocols were performed. One or more of the following dose reduction techniques were used; automated exposure control, adjustment of the mA and/or KV according to patient size, use of iterative reconstruction technique. Findings: Axial sections demonstrate intact base of the skull. C1 exhibit satisfactory relationship to the odontoid. No acute cervical vertebral body fracture seen. Alignment posterior spinous processes satisfactory. Impression: No acute cervical fracture.
--- NOTE | 2025-02-04 11:02 | PD.EDRME ---
Rapid Medical Screening Exam [facility] Arrival date/time: 02/04/25 10:28 This is a 24-year-old male that comes into the emergency room with complaints of head injury. Patient states he had a seizure and typically has a seizure at least once a month. Patient was diagnosed with epilepsy. Patient takes Keppra 1000 mg twice a day. Patient states the reason he came into the emergency room was because he hit his head so hard on the toilet that it broke the toilet. Patient bit inside of lip. Patient denies any other injuries. Patient states he used to smoke marijuana but he does not smoke anymore. Patient reports that he has an appointment with a neurologist later this month. I have greeted and performed a focused initial assessment of this patient. Initial appropriate labs ordered at this time. A comprehensive ED assessment and evaluation of the patient and analysis of all test and completion of medical decision making process will be conducted by additional ED provider. Chief Complaint: Head Injury Time Seen by Provider: 02/04/25 10:44 Vital signs: Vital Signs Temperature 98.0 F 02/04/25 10:39 Pulse Rate 68 02/04/25 10:39 Respiratory Rate 18 02/04/25 10:39 Blood Pressure 111/73 02/04/25 10:39 Pulse Oximetry (%) 96 02/04/25 10:39 Oxygen Delivery Method Room Air 02/04/25 10:39
[2025-02-04 12:06] LABS: Basophils # (Auto) 0.0 Thou/mm3 (0.0-0.2); Basophils % (Auto) 1 % (0-2.5); Eosinophils # (Auto) 0.2 Thou/mm3 (0.0-0.5); Eosinophils % (Auto) 3 % (0-10); Hematocrit 40.0 % (41.0-53.0); Hemoglobin 13.6 g/dL (13.5-16.0); Immature Granulocytes Auto 0.01 Thou/mm3 (0.00-0.00); Lymphocytes # (Auto) 0.7 Thou/mm3 (1.0-4.8); Lymphocytes % (Auto) 14 % (10-50); Mean Corpuscular HGB Conc 34.0 g/dl (31.0-37.0); Mean Corpuscular Hemoglobin 30.4 pg (25.0-35.0); Mean Corpuscular Volume 90 fL (80-100); Monocytes # (Auto) 0.3 Thou/mm3 (0.0-0.8); Monocytes % (Auto) 7 % (0-12); Neutrophils # (Auto) 3.8 Thou/mm3 (1.8-7.7); Neutrophils % (Auto) 75 % (37-80); Nucleated Red Blood Cell # 0.00 Thou/mm3 (0.00-0.00); Nucleated Red Blood Cell % 0 /100 WBC (0); Platelet Count 189 Thou/mm3 (140-440); RDW Standard Deviation 36.8 fL (35.1-43.9); Red Blood Count 4.47 Miln/mm3 (4.50-5.90); White Blood Count 5.1 Thou/mm3 (3.8-10.6)
[2025-02-04 12:16] LABS: Collection Type, Urine Voided; Squamous Epithelial Cell,Urine 0 /hpf (0-5)
[2025-02-04 12:17] LABS: Alanine Aminotransferase 17 U/L (10-49); Albumin, Serum 4.1 gm/dL (3.5-5.0); Albumin/Globulin Ratio 1.6 (1.2-2.2); Alkaline Phosphatase 66 U/L (46-116); Anion Gap 8 (7-16); Aspartate Amino Transferase 18 U/L (0-34); BUN/Creatinine Ratio 7 Ratio (12-20); Bilirubin,Total 0.7 mg/dL (0.3-1.2); Blood Urea Nitrogen 8 mg/dL (9-23); Calcium 8.9 mg/dL (8.3-10.6); Calcium (Corrected) 8.9 mg/dL (8.5-10.1); Carbon Dioxide 29.0 mMol/L (20.0-31.0); Chloride 105 mMol/L (98-107); Creatinine (Component) 1.1 mg/dL (0.6-1.3); Estimated Creatinine Clearance 105.1 mL/min (>60); Globulin 2.6 gm/dL (2.3-3.5); Glucose 96 mg/dL (74-106); Osmolality,Calculated 281 (275-295); Potassium 4.0 mMol/L (3.4-5.1); Sodium 142 mMol/L (136-145); Total Protein 6.7 gm/dL (5.7-8.2); eGFR > 60 See Note
[2025-02-04 12:20] LABS: Bilirubin,Urine Negative (Negative); Blood,Urine Negative (Negative); Clarity,Urine Clear (Clear/Hazy); Color,Urine Lt-Yellow (Lt Yel-Yel); Culture Indicated,Urine Not Indicated; Glucose, Urine Negative (Negative); Ketones,Urine Negative (Negative); Leukocyte Esterase,Urine Negative (Negative); Nitrite,Urine Negative (Negative); PH,Urine 7.5 (5.0-7.0); Protein,Urine Negative (Neg - Trace); RBC,Urine 3 /hpf (0-3); Specific Gravity,Urine 1.024 (1.001-1.035); Urobilinogen,Urine Negative mg/dL (0.0-1.0); WBC,Urine 1 /hpf (0-5)
[2025-02-04 12:29] LABS: Amphetamine/Methamp Scrn,U Negative (Negative); Barbiturate Screen,Urine Negative (Negative); Benzodiazepines Screen,Urine Negative (Negative); Benzoylecgonine Screen, Ur Negative (Negative); Fentanyl Screen,Urine Negative (Negative); Opiate Screen,Urine Negative (Negative); THC Screen,Urine Positive (Negative)
[2025-02-04 13:12] VITALS: BP 114/73; PULSE 61; RESP 18; TEMP 36.8; O2SAT 98
--- NOTE | 2025-02-04 13:24 | PD.EDHEAD ---
ED Head Injury RME/HPI General Chief complaint: Head Injury Stated complaint: HEAD INJURY FROM SEIZURE Time Seen by Provider: 02/04/25 10:44 Source: patient and other (Ex-girlfriend) Arrival date/time: 02/04/25 10:28 Limitations: no limitations RME / HPI RME / HPI Narrative: 24-year-old male with a history of seizure disorder. He takes Keppra for this. He states he has had seizures once monthly since September. Prior to that his seizures have been more frequent. He has no current neurologist but has a pending appointment in approximately 2 weeks for a new consult. He states approximately 1 hour prior to his arrival, he had a seizure in his home while he was in his bathroom. He has abrasions at his upper and lower inner lip. No dental injury. He has no scalp deformity or scalp wounds. He has no other skin injuries. He has no other acute complaints. Related Data Home Medications ?Medication ?Instructions ?Recorded ?Confirmed levetiracetam 1,000 mg tablet 1,000 mg PO BID 02/03/23 07/06/23 levetiracetam 1,000 mg tablet 1,500 mg PO BID 07/06/23 07/06/23 (Keppra) Previous Rx's ?Medication ?Instructions ?Recorded levetiracetam 1,000 mg tablet 1,000 mg PO BID #60 tabs 04/05/23 (Keppra) amoxicillin 875 mg-potassium 1 tab PO BID #14 tabs 07/08/23 clavulanate 125 mg tablet doxycycline hyclate 100 mg capsule 100 mg PO BID #14 caps 07/08/23 ibuprofen 600 mg tablet 600 mg PO Q8H PRN fever or pain 01/03/24 #20 tabs Allergies Allergy/AdvReac Type Severity Reaction Status Date / Time No Known Allergies Allergy Verified 02/04/25 10:31 Review of Systems Review of Systems Systems Reviewed: All systems reviewed, normal except as documented ED Exam General Limitations: Present no limitations General appearance: Present alert and in no apparent distress Head Head exam: Present atraumatic Eye Eye exam: Present normal appearance, PERRL and EOMI ENT ENT exam: Present normal exam, normal oropharynx and mucous membranes moist Neck Neck exam: Present normal inspection, full ROM and trachea midline Chest Chest inspection: Present normal inspection and symmetric chest wall rise Respiratory Respiratory exam: Present normal lung sounds bilaterally Cardiovascular Cardiovascular exam: Present regular rate, normal rhythm and normal heart sounds Abdominal Exam Abdominal exam: Present soft and normal bowel sounds Extremities Exam Extremities exam: Present normal inspection and full ROM Back Exam Back exam: Present normal inspection and full ROM Neurological Exam Neurological exam: Present alert and oriented X3 Psychiatric Psychiatric exam: Present normal affect and normal mood Skin Skin exam: Present warm, dry, intact and normal color Course Quality Measures none Orders Category Date Time Status CT cervical spine wo con Stat Exams 02/04/25 11:[address] head/brain wo con Stat Exams 02/04/25 11:01 Completed CBC Stat Lab 02/04/25 11:43 Completed Comprehensive Metabolic Panel Stat Lab 02/04/25 11:36 Completed Drug Screen,Urine Stat Lab 02/04/25 11:43 Completed Urinalysis, C/S if Indicated Stat Lab 02/04/25 11:43 Completed Vital Signs Vital signs: Vital Signs Temperature 98.0 F 02/04/25 10:39 Pulse Rate 68 02/04/25 10:39 Respiratory Rate 18 02/04/25 10:39 Blood Pressure 111/73 02/04/25 10:39 Pulse Oximetry (%) 96 02/04/25 10:39 Oxygen Delivery Method Room Air 02/04/25 10:39 Head Injury MDM Narrative MDM Narrative:: 24-year-old male with a history of seizure disorder. He takes Keppra for this. He states he has had seizures once monthly since September. Prior to that his seizures have been more frequent. He has no current neurologist but has a pending appointment in approximately 2 weeks for a new consult. He states approximately 1 hour prior to his arrival, he had a seizure in his home while he was in his bathroom. He has abrasions at his upper and lower inner lip. No dental injury. He has no scalp deformity or scalp wounds. He has no other skin injuries. He has no other acute complaints. On exam, patient is nontoxic-appearing and in no visible signs distress. He has no scalp deformity. Dentition is intact. He is mentating at baseline. Vital signs are stable. Patient was advised to follow-up with his primary care provider and neurologist as planned. Return as any for any worsening or emergent changes. Patient data External records reviewed:: None Clinical information provided by:: patient Social determinants that could affect healthcare access:: none Patient has the following chronic illnesses:: Epileptic seizures How is presenting disease/condition affected by chronic disease/condition?: exacerbated by Evaluation data The following diagnostics were reviewed and interpreted by me:: lab results (No leukocytosis or anemia. No metabolic derangement) and radiology exam(s) (No evidence of any intracranial injury) Lab and/or radiology exams considered but not ordered:: n/a Interpretation Summary: Negative workup Medications / Prescriptions Medications or Prescriptions considered but not ordered:: n/a Medication administrations:: n./a Consultations Consultation(s) initiated? (list below): No Diagnosis Differential diagnosis head injury: epidural hematoma, closed head injury, subarachnoid hematoma, postconcussion syndrome and subdural hematoma Most likely diagnosis given after review of the tests above:: Epilepsy Admission Indicated Admission indicated?: not indicated Admission Request Was there a request for admission?: No Disposition Plan Disposition Plan: Discharge Discharge Attestation Discharge Attestation: The patient and all family members were given an opportunity to ask questions and understood the discharge instructions. Discharge instructions specifically effects, indications for sooner follow up or return to the emergency department, and the expected course of current diagnosis. Patient condition: Stable Discharge Plan Plan Patient Disposition: HOME (Self Care) Patient condition on transfer: Stable Prescriptions/Referrals Prescriptions/Med Rec: No Action levetiracetam [Keppra] 1,000 mg tablet 1,000 mg PO BID Qty: 60 0RF Patient Comments: Dose been changed. levetiracetam [Keppra] 1,000 mg tablet 1,500 mg PO BID amoxicillin-pot clavulanate 875-125 mg tablet 1 tab PO BID Qty: 14 0RF doxycycline hyclate 100 mg capsule 100 mg PO BID Qty: 14 0RF ibuprofen 600 mg tablet 600 mg PO Q8H PRN (Reason: fever or pain) Qty: 20 0RF levetiracetam 1,000 mg tablet 1,000 mg PO BID Patient Comments: take 1 tablet by mouth twice a day Referrals: Jerome Wood MD [Primary Care Provider] - In 1 week Problem List Clinical Impression: Epilepsy Patient/Caregiver Discharge Instructions Education Materials: Discharge Instructions for Epilepsy Additional Instructions: - Use Tylenol and ibuprofen as needed for comfort. - Follow-up with your primary doctor. - Follow-up with neurology as planned. - Return here as needed for any worsening or emergent changes. Print Language: Citizen Of [place] Stand Alone Forms: [facility] Award Info., Patient Portal Info Letter
== END 2025-02-04 13:48 | disposition home or self-care (01) ==
PROVIDERS: Nurse Practitioner Family; Emergency Provider Emergency Medicine; PCP Family Medicine
DX: G40.909 Epilepsy, unspecified, not intractable, without status epilepticus (principal)
CPT/HCPCS: 36415; 70450; 72125; 80053; 80307; 81001; 85025; 99284

== ENCOUNTER 2025-02-17 13:00 | Inpatient (IN) | payer MEDICAID, SELFPAY ==
[2025-02-17] VITALS (8 sets, daily range): BP systolic 102–127; BP diastolic 60–79; PULSE 78–99; RESP 13–20; TEMP 36.2–37; O2SAT 88–99; BMI 24.6
--- NOTE | 2025-02-17 13:20 | PC.NURSE ---
called to men's restroom in the lobby, bystander states they heard a bang in the restroom. Security present and unlocked bathroom door, pt. standing with his pants down and blood coming from his mouth. Pt. not responding verbally, pt. is sweating and has min. bleeding coming from his mouth. Pt. sat in wheel chair and taken to room 18.
--- NOTE | 2025-02-17 13:35 | XR_ITS ---
Examination: CT cervical spine without contrast 2-D sagittal reconstructions 2-D coronal reconstructions 3-D reconstructions. Exam date and time:February 18, 2000 2025, 1419 hrs. Indications: Seizures, patient fell today with injury to the neck, neck pain CTDI:vol (mGy) 10 DLP: (mGycm) 217 Technique: Multiple 2 mm axial sections of the cervical spine have been obtained. The coronal and sagittal reconstructions have been obtained. 3-D reconstructions have been obtained. Low dose protocols were performed. One or more of the following dose reduction techniques were used; automated exposure control, adjustment of the mA and/or KV according to patient size, use of iterative reconstruction technique. Findings: Axial sections demonstrate intact base of the skull. C1 exhibit satisfactory relationship to the odontoid. No acute cervical vertebral body fracture seen. Alignment posterior spinous processes satisfactory. Impression: No acute cervical fracture.
--- NOTE | 2025-02-17 13:36 | XR_ITS ---
Examination: AP chest single view. Technique one AP portable semiupright chest single view Date and time: February 17, 2025, 1401 hrs. Comparison November 25, 2023 Indications: Shortness of breath procedure today. Findings: Bilateral perihilar pneumonia, diffuse in the right lung, consider aspiration pneumonia. Normal heart size. The osseous structures are intact. Impression: Bilateral pneumonia, diffuse in the right lung, consider aspiration pneumonia.
--- NOTE | 2025-02-17 13:37 | EDNOTE_ITS ---
ED Seizures RME/HPI General Chief Complaint: Seizure Stated Complaint: Seizure today Time Seen by Provider: 02/17/25 13:31 Arrival date/time: 02/17/25 13:00 RME / HPI RME / HPI Narrative: 24-year-old male patient came in for evaluation regarding seizure this morning. According to the patient from the nurse, patient was witnessed to have tonic- clonic seizure at home. Came here alone. While in the restroom patient developed seizure, when I saw the patient patient was already having postictal confusion. Patient bit his tongue. No other injury noted. Patient was taking Keppra 1000 mg twice daily but according to the patient is not working. Related Data Home Medications ?Medication ?Instructions ?Recorded ?Confirmed levetiracetam 1,000 mg tablet 1,000 mg PO BID 02/03/23 07/06/23 levetiracetam 1,000 mg tablet 1,500 mg PO BID 07/06/23 07/06/23 (Keppra) Previous Rx's ?Medication ?Instructions ?Recorded levetiracetam 1,000 mg tablet 1,000 mg PO BID #60 tabs 04/05/23 (Keppra) amoxicillin 875 mg-potassium 1 tab PO BID #14 tabs 02/21 clavulanate 125 mg tablet doxycycline hyclate 100 mg capsule 100 mg PO BID #14 c aps 07/08/23 ibuprofen 600 mg tablet 600 mg PO Q8H PRN fever or p ain 01/03/24 #20 tabs Allergies Allergy/AdvReac Type Severity Reaction Status Date / Time No Known Allergies Allergy Verified 02/17/25 13:03 Review of Systems Review of Systems Narrative Review of Systems: Review of system reviewed and within normal limits except mentioned in HPI ED Exam Narrative Physical exam: VITAL SIGNS: Reviewed. GENERAL APPEARANCE: Alert and interactive, follows commands, no acute distress, HEAD AND FACE: Non-traumatic. ENT: PERRL, pink conjunctivitis, eyelid no trauma, Mucous membrane moist. Laceration to the tongue 1 cm nongaping NECK: Supple, nontender, no nuchal rigidity. CHEST: No tenderness, no crepitus, no paradoxical movement, no retractions. LUNGS: Clear, well ventilated, symmetric, no rales, no wheezing, no ronchi, no stridor, good breath sounds bilaterally. HEART: Regular rate, regular rhythm, no murmur, no gallops. ABDOMEN: Soft, positive bowel sounds, nondistended, no guarding, nontender, no rebound, no masses, RECTAL: Deferred. GENITAL: Deferred. NEUROLOGICAL: Gross motor function intact sensory function intact, Appropriate f or age. MUSCULOSKELETAL: low back nontender, full range of motion. EXTREMITIES: Nontender, full range of motion. SKIN: Color pink, dry, no rash, no lacerations, no abrasions, no contusions. LYMPHATICS: Deferred. Course Quality Measures none Orders Category Date Time Status COVID-19 Screening Questionnaire NOW Care 02/17/25 17:46 Active Decision to Admit X1 Care 02/17/25 17:46 Completed Consult to Neurology / Tele-Neurology Stat Cons 02/17/25 17:[address] cervical spine wo con Stat Exams 02/17/25 13:[address] head/brain wo con Stat Exams 02/17/25 13:40 Completed XR chest 1V Stat Exams 02/17/25 13:36 Completed ABG [Arterial Blood Gas] Stat Lab 02/17/25 18:15 Completed Blood Culture (Lab) Stat Lab 02/17/25 16:02 Received CBC Stat Lab 02/17/25 13:42 Completed Comprehensive Metabolic Panel Stat Lab 02/17/25 13:42 Completed Drug Screen,Urine Stat Lab 02/17/25 16:49 Completed Lactate (Lactic Acid) Stat Lab 02/17/25 16:10 Completed Partial Thromboplastin Time Stat Lab 02/17/25 13:42 Completed Procalcitonin Stat Lab 02/17/25 16:10 Completed Urinalysis, C/S if Indicated Stat Lab 02/17/25 16:49 Completed Cefepime Inj [Maxipime Inj] 1 gm Med 02/17/25 15:55 Discontinued SODIUM CHLORIDE 0.9% (Popper) [Ns 0.9% (P)] 50 ml IV X1 LORazepam [Ativan Inj] Med 02/17/25 13:35 Discontinued 2 mg IVP X1 ONE Ringers Lactated 1000 ml [Lactated Ringers] 1,000 ml Med 02/17/25 13:35 Discontinued IV 999 mls/hr levETIRAcetam INJ [Keppra Inj] Med 02/17/25 13:35 Discontinued 1,000 mg IVP X1 ONE Vital Signs Vital signs: Vital Signs Temperature 97.1 F 02/17/25 13:40 Pulse Rate 95 02/17/25 13:40 Respiratory Rate 15 02/17/25 13:40 Blood Pressure 119/72 02/17/25 13:40 Pulse Oximetry (%) 90 L 02/17/25 13:40 Oxygen Delivery Method Room Air 02/17/25 13:40 Seizure MDM Narrative MDM Narrative:: 24-year-old male patient came in for evaluation regarding seizure this morning. According to the patient from the nurse, patient was witnessed to have tonic-clonic seizure at home. Came here alone. While in the restroom patient developed seizure, when I saw the patient patient was already having postictal confusion. Patient bit his tongue. No other injury noted. Patient was taking Keppra 100 mg twice daily but according to the patient is not working. CT scan of the head came back unremarkable. CT neck came back unremarkable. Patient's laboratory workup was significant for leukocytosis of 11.8. ABG came back unremarkable. Except for PCO2 of 64. Lactic acid 3.8 urinalysis no UTI. Positive for marijuana. Chest x-ray showed diffuse pneumonia, possibly aspiration pneumonia. Patient was starting to be 88% on room air. I put the patient on 4 L nasal cannula and satting 92%. Care discussed with Dr Lugo, neurologist, who told me that patient will be followed in the floor also. Thank you Dr. Lynn spoke with hospitalist, who was admitted the patient. Patient data External records reviewed:: None Clinical information provided by:: patient Social determinants that could affect healthcare access:: none Patient has the following chronic illnesses:: Seizure disorder How is presenting disease/condition affected by chronic disease/condition?: exacerbated by Evaluation data The following diagnostics were reviewed and interpreted by me:: lab results and radiology exam(s) Lab and/or radiology exams considered but not ordered:: None Interpretation Summary: See results MDM Medications / Prescriptions Medications or Prescriptions considered but not ordered:: Stable Medication administrations:: Medication Administration History Acetaminophen (Acetaminophen 325 Mg Tablet) 650 mg PO Q6H PRN PRN Reason: Fever >100.4 or pain Stop: 03/19/25 18:09 Hydrocodone Bitart/Acetaminophen (Hydrocodone/Apap 5/325 Tablet) 1 tab PO Q4HR PRN PRN Reason: PAIN SCALE 4-10(Mod-Sev Stop: 02/22/25 18:09 Docusate Sodium (Docusate Sod 100 Mg Capsule) 100 mg PO QDAY PRN; Protocol PRN Reason: CONSTIPATION Stop: 03/19/25 18:09 Enoxaparin Sodium (Enoxaparin Sod Inj 40 Mg/0.4 Ml Syringe) 40 mg SC QDAY MIRACLE Stop: 03/04/25 08:59 Ampicillin Sodium/Sulbactam (Sodium 3 gm/ Sodium Chloride) 100 mls @ 200 mls/hr IV Q6HR MIRACLE Stop: 02/24/25 18:29 Last Admin: 02/17/25 18:44 Dose: 200 mls/hr Documented By: EF Lactated Ringer's (Lactated Ringers) 1,000 mls @ 80 mls/hr IV .[id number] MIRACLE Stop: 02/18/25 19:20 Last Admin: 02/17/25 19:32 Dose: 80 mls/hr Documented By: Levetiracetam (Levetiracetam Inj 100 Mg/Ml Vial 5ml) 1,500 mg IVP Q12HR MIRACLE Stop: 03/19/25 20:59 Lorazepam (Lorazepam 2 Mg/Ml Vial) 2 mg IVP Q5MIN PRN PRN Reason: SEIZURES Stop: 02/20/25 18:14 Ondansetron HCl (Ondansetron Inj 2 Mg/Ml Inj 2 Ml) 4 mg IVP Q6H PRN; Protocol PRN Reason: NAUSEA OR VOMITING Stop: 03/19/25 18:09 Sennosides (Senna Tablet) 1 tab PO QDAY PRN; Protocol PRN Reason: constipation Stop: 03/19/25 18:09 Discontinued Medications Lactated Ringer's (Lactated Ringers) 1,000 mls @ 999 mls/hr IV .Q1H1M ONE Stop: 02/17/25 14:35 Last Infusion: 02/17/25 14:53 Dose: Infused Documented By: Admin: 02/17/25 13:52 Dose: 999 mls/hr Documented By: EF Cefepime HCl 1 gm/ Sodium (Chloride) 50 mls @ 100 mls/hr IV X1 ONE Stop: 02/17/25 16:24 Last Infusion: 02/17/25 17:26 Dose: Infused Documented By: Admin: 02/17/25 16:56 Dose: 100 mls/hr Documented By: EF Levetiracetam (Levetiracetam Inj 100 Mg/Ml Vial 5ml) 1,000 mg IVP X1 ONE Stop: 02/17/25 13:36 Last Admin: 02/17/25 13:51 Dose: 1,000 mg Documented By: EF Lorazepam (Lorazepam 2 Mg/Ml Vial) 2 mg IVP X1 ONE Stop: 02/17/25 13:36 Last Admin: 02/17/25 13:59 Dose: 2 mg Documented By: EF Ativan, Keppra, cefepime IV fluids Consultations Consultation(s) initiated? (list below): Yes Consultation #1 (Physician, Specialty, Details): Dr Lugo, neurologist on-call, thank you . Diagnosis Seizure Differential Diagnosis: intractable seizure disorder, generalized seizure and other (Aspiration pneumonia, breakthrough seizure, poor medication compliance) Most likely diagnosis given after review of the tests above:: Aspiration pneumonia, hypoxia, breakthrough seizure Admission Indicated Admission indicated?: indicated Admission Request Was there a request for admission?: Yes Admission Attestation Admission request attestation: Discussed case with Hospitalist service regarding admission. Discussed patients ED course, exam findings, labs, and radiology results. The Hospitalist [agrees to accept the patient for admission. Disposition Plan Disposition Plan: Admit Discharge Plan Plan Patient Disposition: Admit Acute Care w/in Hospital Problem List Clinical Impression: Intractable seizure disorder, Aspiration pneumonia, Hypoxia
--- NOTE | 2025-02-17 13:40 | XR_ITS ---
Examination: CT brain head without contrast. 2-D sagittal coronal reconstructions Date and time of exam:February 17, 2025, 1419 hrs. Indications: Seizure today, patient fell with injury to the head, head pain CTDI: vol (mGy):53.7. DLP: (mGycm):1007 Technique: Multiple CT axial sections of the brain have been obtained, 5 mm slice thickness. Contrast has not been administered. 2-D sagittal, coronal reconstructions have been obtained Low dose protocols were performed. One or more of the following dose reduction techniques were used; automated exposure control, adjustment of the mA and/or KV according to patient size, use of iterative reconstruction technique. Findings: No significant ventricular enlargement. Intra-axial or extra-axial hemorrhage density is not seen. No mass effect or midline shift Basal cisterns are not remarkable. Fourth ventricle is midline. Cranial vault intact. Impression: Negative for acute hemorrhage, mass effect or midline shift
[2025-02-17] MEDS: levETIRAcetam INJ 100 MG/ML VIAL 5ML 1000 MG IVP (13:51)
[2025-02-17] MEDS: RINGERS LACTATED 1000 ML 1,000 ML 999 ML IV (13:52)
[2025-02-17 13:54] LABS: Basophils # (Auto) 0.1 Thou/mm3 (0.0-0.2); Basophils % (Auto) 1 % (0-2.5); Eosinophils # (Auto) 0.7 Thou/mm3 (0.0-0.5); Eosinophils % (Auto) 6 % (0-10); Hematocrit 47.7 % (41.0-53.0); Hemoglobin 15.3 g/dL (13.5-16.0); Immature Granulocytes Auto 0.06 Thou/mm3 (0.00-0.00); Lymphocytes # (Auto) 2.2 Thou/mm3 (1.0-4.8); Lymphocytes % (Auto) 19 % (10-50); Mean Corpuscular HGB Conc 32.1 g/dl (31.0-37.0); Mean Corpuscular Hemoglobin 30.4 pg (25.0-35.0); Mean Corpuscular Volume 95 fL (80-100); Monocytes # (Auto) 1.0 Thou/mm3 (0.0-0.8); Monocytes % (Auto) 8 % (0-12); Neutrophils # (Auto) 7.8 Thou/mm3 (1.8-7.7); Neutrophils % (Auto) 67 % (37-80); Nucleated Red Blood Cell # 0.00 Thou/mm3 (0.00-0.00); Nucleated Red Blood Cell % 0 /100 WBC (0); Platelet Count 247 Thou/mm3 (140-440); RDW Standard Deviation 39.7 fL (35.1-43.9); Red Blood Count 5.04 Miln/mm3 (4.50-5.90); White Blood Count 11.8 Thou/mm3 (3.8-10.6)
[2025-02-17] MEDS: LORazepam 2 MG/ML VIAL IVP (13:59)
[2025-02-17 14:01] LABS: Partial Thromboplastin Time 27.2 Seconds (22.0-36.0)
[2025-02-17 14:06] LABS: Alanine Aminotransferase 28 U/L (10-49); Albumin, Serum 4.7 gm/dL (3.5-5.0); Albumin/Globulin Ratio 1.7 (1.2-2.2); Alkaline Phosphatase 70 U/L (46-116); Anion Gap 21 (7-16); Aspartate Amino Transferase 27 U/L (0-34); BUN/Creatinine Ratio 8 Ratio (12-20); Bilirubin,Total 0.9 mg/dL (0.3-1.2); Blood Urea Nitrogen 11 mg/dL (9-23); Calcium 9.3 mg/dL (8.3-10.6); Calcium (Corrected) 9.3 mg/dL (8.5-10.1); Carbon Dioxide 18.7 mMol/L (20.0-31.0); Chloride 103 mMol/L (98-107); Creatinine (Component) 1.3 mg/dL (0.6-1.3); Estimated Creatinine Clearance 94.5 mL/min (>60); Globulin 2.8 gm/dL (2.3-3.5); Glucose 105 mg/dL (74-106); Osmolality,Calculated 284 (275-295); Potassium 3.4 mMol/L (3.4-5.1); Sodium 143 mMol/L (136-145); Total Protein 7.5 gm/dL (5.7-8.2); eGFR > 60 See Note
[2025-02-17 16:31] LABS: Lactate (Lactic Acid) 3.8 mMol/L (0.4-2.0)
[2025-02-17 16:55] LABS: Collection Type, Urine Clean Catch; Squamous Epithelial Cell,Urine 0 /hpf (0-5)
[2025-02-17] MEDS: CEFEPIME INJ 1 GM in SODIUM CHLORIDE 0.9% (Popper) 50 ML IV (16:56)
[2025-02-17 17:04] LABS: Procalcitonin 0.07 ng/ml (0.0-0.49)
[2025-02-17 17:06] LABS: Bilirubin,Urine Negative (Negative); Blood,Urine Negative (Negative); Clarity,Urine Clear (Clear/Hazy); Color,Urine Lt-Yellow (Lt Yel-Yel); Culture Indicated,Urine Not Indicated; Glucose, Urine Negative (Negative); Ketones,Urine Trace (Negative); Leukocyte Esterase,Urine Negative (Negative); Nitrite,Urine Negative (Negative); PH,Urine 6.5 (5.0-7.0); Protein,Urine Trace (Neg - Trace); RBC,Urine 1 /hpf (0-3); Specific Gravity,Urine 1.020 (1.001-1.035); Urobilinogen,Urine Negative mg/dL (0.0-1.0); WBC,Urine 1 /hpf (0-5)
[2025-02-17 17:15] LABS: Amphetamine/Methamp Scrn,U Negative (Negative); Barbiturate Screen,Urine Negative (Negative); Benzodiazepines Screen,Urine Negative (Negative); Benzoylecgonine Screen, Ur Negative (Negative); Fentanyl Screen,Urine Negative (Negative); Opiate Screen,Urine Negative (Negative); THC Screen,Urine Positive (Negative)
--- NOTE | 2025-02-17 18:08 | ESHP_ITS ---
<Statement entered by Jimmy Marcano MD - 02/19/25 11:18> Patient seen and examined at bedside. I discussed and supervised with the college intern physician who took care of this patient. I personally saw and examined the patient. I agree with most of the assessment and plan. Patient presented following uncontrolled seizures despite home meds. Was drowsy at time of exam, had received Ativan in ED. Seizure precautions ordered, neuro consulted. Keppra 1500mg BID IV ordered. CXR shows consolidation, suspect aspiration PNA, Unasyn started. MRI and EEG ordered. Plan of care discussed with attending Dr. Hurd. Jimmy Marcano MD PGY-2 Documentation for date of: 02/17/25 HPI History of Present Illness Chief complaint: Seizure History of present illness: Mr. Hahn is a 24M with history of epilepsy and cellulitis presents for break throught seizures. Pt was recently seen on 02/04/25 at [facility] for the same compliant. Pt was put on Keppra 1000mg BID, but reports an increase in seizure activities at home, which prompt him to come into the ER today. While in the restroom, pt had another episode of seizure with aspiration. 2mg of Ativan was given by the ER staff. On exam, pt was arousable to verbal stimuli, but appears drowsy, likely due to ativan administration. He denies midline tenderness, pain to head, neck, or extremities. ED Course In the ED, pt had an episode of seizure with aspiration in the restroom. 2mg of Ativan was given. CXR shows bilateral perihilar pneumonia, diffuse in the right lung. Head CT and C-spine CT negative. Initial labs show Na 143. K 3.4, Cl 103 WBC 11.8, Hgb 15.3. Bicarbs 18.7. Anion gap 21. Lactate 3.8. ABG shows pH 7.39, pCO2 43, pO2 64. HCO3 26. ROS * Constitutional: NAD, arousable to sound and able to follow commend. Appears drowsy due to antivan adminstration by ER staff. * GI: Denies abdominal pain. * CV: Denies chest pain or palpitations. * Resp: Denies SOB. * : Unable to assess * Neuro: No focal deficits. * Skin: dry and intact. Oral mucosa appears dry Past Medical History * Epilepsy * Cellulitis Social History * Lives at home, independent baseline. * Denies tobacco, alcohol, or illicit drug use. Surgical History * Denies Allergies * NKDA Home Meds * Keppra 1000mg BID Past Medical History Past Medical History NEUROLOGIC: Positive Seizures; Negative Neurological Disorders CARDIAC: Negative Cardiac Disorders or Congestive Heart Failure RESPIRATORY: Negative Chronic Obstructive Pulmonary Disease (COPD) GENITOURINARY: Negative Renal Disease ENDOCRINE: Negative Diabetes Mellitus Type 1 or Diabetes Mellitus Type 2 OTHER HISTORY: Positive Hospitalization; Negative Blood Transfusions, Blood Transfusion Reaction or Anesthesia Reactions Social History SMOKING STATUS: Never smoker Exam Vital Signs Temp Pulse Resp BP Pulse Ox O2 Del Method O2 Flow Rate 97.4 F 99 20 127/79 92 L Oxy Mask 4 02/17/25 16:07 02/17/25 16:07 02/17/25 16:07 02/17/25 16:07 02/17/25 17:39 02/17/25 17:39 02/17/25 17:39 Narrative Exam General: Well appearing, well nourished, in no distress. Drowsy due to Ativan administration. Arousable to sound and able to follow command. Skin: Dry and intact. Head: Normocephalic, atraumatic, no visible or palpable masses, depressions, or scaring. Mouth: Mucous membranes dry, left tongue blister due to seizure activity, no bleeding observed. Heart: No cardiomegaly or thrills; regular rate and rhythm, no murmur or gallop Lungs: Rhonchi to right lower lobe. Abdomen: No tenderness, organomegaly, masses, or hernia Extremities: No amputations or deformities, cyanosis, edema or varicosities. Results: Labs 02/19/25 05:42 02/19/25 05:42 Labs: Short CBC 02/17/25 Range/Units 13:42 WBC 11.8 H (3.8-10.6) Thou/mm3 Hgb 15.3 (13.5-16.0) g/dL Hct 47.7 (41.0-53.0) % Plt Count 247 D (140-440) Thou/mm3 BMP 02/17/25 13:42 Sodium 143 Potassium 3.4 Chloride 103 Carbon Dioxide 18.7 L BUN 11 Creatinine 1.3 Glucose 105 Calcium 9.3 Liver Function 02/17/25 Range/Units 13:42 Total Bilirubin 0.9 (0.3-1.2) mg/dL AST 27 (0-34) U/L ALT 28 (10-49) U/L Alkaline Phosphatase 70 (46-116) U/L Albumin 4.7 (3.5-5.0) gm/dL Urine 02/17/25 Range/Units 16:49 Urine Color Lt-Yellow (Lt Yel-Yel) Urine Clarity Clear (Clear/Hazy) Urine pH 6.5 (5.0-7.0) Ur Specific [place] 1.020 (1.001-1.035) Urine Protein Trace (Neg - Trace) Urine Glucose (UA) Negative (Negative) Quality Measures Quality Measures VTE prophylaxis Medications Home Medications and Allergies Allergies Allergy/AdvReac Type Severity Reaction Status Date / Time No Known Allergies Allergy Verified 02/17/25 13:03 Visit Medications Discontinued Medications Lactated Ringer's (Lactated Ringers) 1,000 mls @ 999 mls/hr IV .Q1H1M ONE Stop: 02/17/25 14:35 Last Infusion: 02/17/25 14:53 Dose: Infused Cefepime HCl 1 gm/ Sodium (Chloride) 50 mls @ 100 mls/hr IV X1 ONE Stop: 02/17/25 16:24 Last Infusion: 02/17/25 17:26 Dose: Infused Levetiracetam (Levetiracetam Inj 100 Mg/Ml Vial 5ml) 1,000 mg IVP X1 ONE Stop: 02/17/25 13:36 Last Admin: 02/17/25 13:51 Dose: 1,000 mg Lorazepam (Lorazepam 2 Mg/Ml Vial) 2 mg IVP X1 ONE Stop: 02/17/25 13:36 Last Admin: 02/17/25 13:59 Dose: 2 mg Assessment & Plan Plan 24M with history of cellulitis and epilepsy. He presents initially to the ER on 02/17/25 due to increased in seizure activities at home. He was seen at [place] ER on 02/04/25 for the same compliant, and was put on Keppra 1000mg BID. He had another episode of seizure with aspriation at the restroom in the ER, 2mg ativan given, and CXR shows bilateral perihilar pneumonia. He was admitted for uncontrolled seizure activity. #Breakthrough Seizure History of epilepsy, was put on Keppra 1000mg BID. Reports of increase in seizure acitvities at home. - Start Keppra 1500mg BID. - Seizure precaution. - N.P.O, pending swallowing test - 1mg Ativan PRN. - Pending Neuro consult. #Aspiration Pneumonia Aspirated while in the restroom. CXR shows bilateral pneumonia. - Unasyn 3gm Q6 started. 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 Marcano Case discussed with my attending Dr. Vickey Mckinney DO PGY 1 Attending Provider Attestation/Addendum Loulou Lynn DO, attest that I was physically present for the owen portions of the service and evaluated the patient with the resident and I reviewed and discussed the case with the resident and agree with the resident's findings and plans of care as documented above Patient is a 24-year-old male with past medical history of seizure disorder and noncompliance who presented to the ED with breakthrough seizures. Patient had a second witnessed seizure in the ED. Patient received Ativan in the ED and appears to be drowsy at time of evaluation. Patient takes Keppra at home and reports being compliant. He has not been able to see a neurologist, but is scheduled to see 1 at outpatient. Patient endorses poor control of seizures with Keppra. He was noted to desaturate in require 4 L of nasal cannula upon evaluation in the ED. chest x-ray shows right lung infiltrates concerning for aspiration pneumonia secondary to breakthrough seizure. Will admit patient to telemetry for further workup and medical management of acute hypoxic respiratory failure secondary to aspiration pneumonia in the setting of breakthrough seizure. Neurology was called for ED for further recommendations regarding seizure control. CT head was done showing no acute intracranial findings. Will order MRI and EEG as per neurology recommendations and follow over recommendations. Patient received 1 g of Keppra in the ED. Will increase to 1500 mg of Keppra twice daily in the meantime. At time of evaluation, patient is somnolent and able to answer questions appropriately, but slow due to postictal state. Patient is able to move all 4 extremities and follow commands. Pupils are pinpoint, but reactive to light.
[2025-02-17 18:17] LABS: Base Excess 1 (-3-3); HCO3 26 mEq/L (20-26); Inspired Oxygen, FIO2 21 %; O2 Saturation 93 % (91-98); PCO2 43 mmHg (32.0-48.0); PO2 64 mmHg (83-108); pH, Arterial 7.39 (7.35-7.45)
[2025-02-17 18:18] LABS: Allen Test Performed/OK; Inspired O2, VO2 Liters 4 L/min; Puncture Site Right Radial
[2025-02-17] MEDS: AMPICILLIN/SULBAC INJ 3 GM in SODIUM CHLORIDE 0.9% (POP) 100 ML IV ×2 (18:44→23:21)
[2025-02-17 19:28] LABS: Reflex Lactate? Y
[2025-02-17] MEDS: RINGERS LACTATED 1000 ML 1,000 ML 80 ML IV (19:32)
[2025-02-17 20:17] LABS: Lactic Acid, 3 HR 1.5 mMol/L (0.4-2.0)
[2025-02-17] MEDS: levETIRAcetam INJ 100 MG/ML VIAL 5ML 1500 MG IVP (22:10)
--- NOTE | 2025-02-17 22:41 | PC.NURSE ---
PT'S SPO2 ON ROOM AIR AWAKE 96%, ASLEEP 88-89%. REAPPLIED O2 NC 2LPM,SPO2 UP TO 96%. ON CONTINUOS PULSE OX.
--- NOTE | 2025-02-17 23:51 | PD.VCONSULT1 ---
Telemedicine visit statement This visit was conducted with the use of phone was obtained on 02/17/25 at 2351. History of Present Illness History of Present Illness History of present illness: Mr. Hahn is a 24-year-old with a history of epilepsy presented to the ER with breakthrough seizures. He was recently seen on 02/04/2025 and was started on Keppra 1000 mg twice a day. He and his family reported increase in seizure activity after being on Keppra which prompted him to come to the ER again to be evaluated. He did have witnessed generalized tonic-clonic seizure with aspiration. He was given 2 mg of Ativan and loaded with Keppra 1500 mg IV. Patient got admitted to telemetry for further management. Neurology was consulted to evaluate further. Workup in the ER: Vitals: Afebrile and stable Labs: Na 143. K 3.4, Cl 103 WBC 11.8, Hgb 15.3. Bicarbs 18.7. Anion gap 21. Lactate 3.8. ABG shows pH 7.39, pCO2 43, pO2 64. HCO3 26. CXR shows bilateral perihilar pneumonia, diffuse in the right lung. Head CT and C-spine CT negative. Past Medical History Past Medical History NEUROLOGIC: Positive Seizures; Negative Neurological Disorders CARDIAC: Negative Cardiac Disorders or Congestive Heart Failure RESPIRATORY: Negative Chronic Obstructive Pulmonary Disease (COPD) GENITOURINARY: Negative Renal Disease ENDOCRINE: Negative Diabetes Mellitus Type 1 or Diabetes Mellitus Type 2 OTHER HISTORY: Positive Hospitalization; Negative Blood Transfusions, Blood Transfusion Reaction or Anesthesia Reactions Social History SMOKING STATUS: Never smoker TeleMedicine ROS Pertinent Review of Systems Systems Reviewed: All systems reviewed, normal except as documented Meds Home Medications and Allergies Home Medications ?Medication ?Instructions ?Recorded ?Confirmed ?Type levetiracetam 1,000 mg tablet 1,000 mg PO BID 02/03/23 02/18/25 History levetiracetam 1,000 mg tablet 1,500 mg PO BID 07/06/23 02/18/25 History (Keppra) Allergies Allergy/AdvReac Type Severity Reaction Status Date / Time No Known Allergies Allergy Verified 02/17/25 13:03 Virtual exam Vital Signs Temp Pulse Resp BP Pulse Ox O2 Del Method O2 Flow Rate 98.6 F 94 13 102/74 95 Nasal Cannula 4 02/17/25 22:21 02/17/25 22:21 02/17/25 22:21 02/17/25 22:21 02/17/25 22:21 02/17/25 22:21 02/17/25 22:21 Results Labs 02/18/25 04:43 02/18/25 04:43 Labs: Short CBC 02/17/25 Range/Units 13:42 WBC 11.8 H (3.8-10.6) Thou/mm3 Hgb 15.3 (13.5-16.0) g/dL Hct 47.7 (41.0-53.0) % Plt Count 247 D (140-440) Thou/mm3 BMP 02/17/25 13:42 Sodium 143 Potassium 3.4 Chloride 103 Carbon Dioxide 18.7 L BUN 11 Creatinine 1.3 Glucose 105 Calcium 9.3 Liver Function 02/17/25 Range/Units 13:42 Total Bilirubin 0.9 (0.3-1.2) mg/dL AST 27 (0-34) U/L ALT 28 (10-49) U/L Alkaline Phosphatase 70 (46-116) U/L Albumin 4.7 (3.5-5.0) gm/dL Urine 02/17/25 Range/Units 16:49 Urine Color Lt-Yellow (Lt Yel-Yel) Urine Clarity Clear (Clear/Hazy) Urine pH 6.5 (5.0-7.0) Ur Specific [place] 1.020 (1.001-1.035) Urine Protein Trace (Neg - Trace) Urine Glucose (UA) Negative (Negative) ABG Interpretation ABG results: 02/17/25 18:15 ABG pH 7.39 ABG pCO2 43 ABG pO2 64 L ABG HCO3 26 ABG O2 Saturation 93 ABG Base Excess 1 Assessment & Plan Problem List (1) Seizure disorder: Status: Acute Assessment and plan: Continue with the [facility] follow-up with MRI brain and EEG Follow seizure precautions (2) Aspiration pneumonia: Status: Acute Assessment and plan: Continue with antibiotics
[2025-02-18] VITALS (9 sets, daily range): BP systolic 99–138; BP diastolic 58–69; PULSE 62–93; RESP 11–97; TEMP 36.1–37; O2SAT 93–99; BMI 24.4
[2025-02-18] MEDS: AMPICILLIN/SULBAC INJ 3 GM in SODIUM CHLORIDE 0.9% (POP) 100 ML IV ×4 (05:08→23:30)
[2025-02-18] MEDS: ONDANSETRON INJ 2 MG/ML INJ 2 ML 4 MG IVP (05:12)
[2025-02-18 05:15] LABS: Basophils # (Auto) 0.0 Thou/mm3 (0.0-0.2); Basophils % (Auto) 0 % (0-2.5); Eosinophils # (Auto) 0.1 Thou/mm3 (0.0-0.5); Eosinophils % (Auto) 1 % (0-10); Hematocrit 39.1 % (41.0-53.0); Hemoglobin 12.9 g/dL (13.5-16.0); Immature Granulocytes Auto 0.03 Thou/mm3 (0.00-0.00); Lymphocytes # (Auto) 1.0 Thou/mm3 (1.0-4.8); Lymphocytes % (Auto) 9 % (10-50); Mean Corpuscular HGB Conc 33.0 g/dl (31.0-37.0); Mean Corpuscular Hemoglobin 30.7 pg (25.0-35.0); Mean Corpuscular Volume 93 fL (80-100); Monocytes # (Auto) 0.7 Thou/mm3 (0.0-0.8); Monocytes % (Auto) 6 % (0-12); Neutrophils # (Auto) 9.2 Thou/mm3 (1.8-7.7); Neutrophils % (Auto) 83 % (37-80); Nucleated Red Blood Cell # 0.00 Thou/mm3 (0.00-0.00); Nucleated Red Blood Cell % 0 /100 WBC (0); Platelet Count 151 Thou/mm3 (140-440); RDW Standard Deviation 37.8 fL (35.1-43.9); Red Blood Count 4.20 Miln/mm3 (4.50-5.90); White Blood Count 11.1 Thou/mm3 (3.8-10.6)
[2025-02-18 05:26] LABS: INR 1.1 (0.9-1.3); Partial Thromboplastin Time 25.0 Seconds (22.0-36.0); Prothrombin Time 11.9 Seconds (9.0-12.2)
[2025-02-18 06:07] LABS: Alanine Aminotransferase 22 U/L (10-49); Albumin, Serum 3.8 gm/dL (3.5-5.0); Albumin/Globulin Ratio 1.7 (1.2-2.2); Alkaline Phosphatase 53 U/L (46-116); Anion Gap 12 (7-16); Aspartate Amino Transferase 24 U/L (0-34); BUN/Creatinine Ratio 9 Ratio (12-20); Bilirubin,Total 1.2 mg/dL (0.3-1.2); Blood Urea Nitrogen 9 mg/dL (9-23); Calcium 8.7 mg/dL (8.3-10.6); Calcium (Corrected) 8.9 mg/dL (8.5-10.1); Carbon Dioxide 26.5 mMol/L (20.0-31.0); Chloride 105 mMol/L (98-107); Creatinine (Component) 1.0 mg/dL (0.6-1.3); Estimated Creatinine Clearance 122.9 mL/min (>60); Globulin 2.3 gm/dL (2.3-3.5); Glucose 80 mg/dL (74-106); Magnesium 1.5 mg/dL (1.6-2.6); Osmolality,Calculated 282 (275-295); Phosphorous 3.4 mg/dL (2.4-5.1); Potassium 3.9 mMol/L (3.4-5.1); Sodium 143 mMol/L (136-145); Total Protein 6.1 gm/dL (5.7-8.2); eGFR > 60 See Note
[2025-02-18] MEDS: Magnesium Sulfate 4 GM Ivpb 4 GM/50 ML BAG IV (06:30)
[2025-02-18] MEDS: levETIRAcetam INJ 100 MG/ML VIAL 5ML 1500 MG IVP (08:51)
[2025-02-18] MEDS: ENOXAPARIN SOD INJ 40 MG/0.4 ML SYRINGE SC (08:52)
--- NOTE | 2025-02-18 10:15 | ESPR_ITS ---
<Statement entered by Fritz Gaitan MD - 02/18/25 14:25> Patient was seen and examined at the bedside. No acute overnight events were reported. Patient was concerned that Todd is not helping with his seizures and wanted to leave AMA. He was explained that neurologist recommended to follow-up with the EEG and MRI brain and she will likely follow-up with the results and decide about seizure medication adjustment. Will follow-up with blood culture results. Will continue with Unasyn for possible aspiration pneumonia. Continue aspiration precautions. Hemoglobin slightly dropped. White count improved. Electrolytes were repleted. All labs and orders were reviewed. I discussed and supervised with the international account manager physician who took care of this patient. I personally saw and examined the patient. I agree with most of the assessment and plan. Disclaimer: Despite multiple revisions, due to the dictation software being used, the document bellow may not be free of grammatical errors including phonetic/typographic errors. However, this does not deter from our commitment to providing health care in the patient's best interest in mind. Plan of care discussed with attending Physician Dr. Vickey Gaitan MD PGY-3 Documentation for date of: 02/18/25 Subjective Subjective Interval history: No overnight events. Evaluated at bedside. Pt wants to go AMA, but agrees to stay for MRI and EEG per neurology recommendations. Family present at bedside, and pt has no acute complaints or seizure activity overnight. Exam Vital Signs Temp Pulse Resp BP Pulse Ox O2 Del Method O2 Flow Rate 97.7 F 79 11 L 110/65 95 Nasal Cannula 4 02/18/25 04:00 02/18/25 04:00 02/18/25 04:00 02/18/25 04:00 02/18/25 04:00 02/18/25 04:00 02/18/25 04:00 Narrative Exam General: Well appearing, well nourished, in no distress. Skin: Dry and intact. Head: Normocephalic, atraumatic, no visible or palpable masses, depressions, or scaring. Mouth: left tongue blister due to seizure activity prior to admission in the ER, no bleeding observed. Heart: No cardiomegaly or thrills; regular rate and rhythm, no murmur or gallop Lungs: CTAB. No wheezing or rhales. Abdomen: No tenderness, organomegaly, masses, or hernia Extremities: No amputations or deformities, cyanosis, edema or varicosities. Objective Labs 02/19/25 05:42 02/19/25 05:42 Labs: Laboratory Results - last 24 hr 02/17/25 02/17/25 02/17/25 13:42 16:10 16:49 WBC 11.8 H RBC 5.04 Hgb 15.3 Hct 47.7 MCV 95 MCH 30.4 MCHC 32.1 RDW Std Deviation 39.7 Plt Count 247 D Neut % (Auto) 67 Lymph % (Auto) 19 [place] % (Auto) 8 Eos % (Auto) 6 Baso % (Auto) 1 Neut # (Auto) 7.8 H Lymph # (Auto) 2.2 [place] # (Auto) 1.0 H Eos # (Auto) 0.7 H Baso # (Auto) 0.1 Immature Gran # (Auto) 0.06 H Absolute Nucleated RBC 0.00 Immature Gran % 1 H Nucleated RBC % 0 PT INR APTT 27.2 Puncture Site ABG pH ABG pCO2 ABG pO2 ABG HCO3 ABG O2 Saturation ABG Base Excess Oxygen Liter Flow FiO2 Sodium 143 Potassium 3.4 Chloride 103 Carbon Dioxide 18.7 L Anion Gap 21 H BUN 11 Creatinine 1.3 Estim Creat Clear Calc 94.5 eGFR > 60 BUN/Creatinine Ratio 8 L Glucose 105 Calculated Osmolality 284 Lactic Acid 3.8 H Calcium 9.3 Corrected Calcium 9.3 Phosphorus Magnesium Total Bilirubin 0.9 AST 27 ALT 28 Alkaline Phosphatase 70 Total Protein 7.5 Albumin 4.7 Globulin 2.8 Albumin/Globulin Ratio 1.7 Procalcitonin 0.07 Ur Collection Type Clean Catch Urine Color Lt-Yellow Urine Clarity Clear Urine pH 6.5 Ur Specific [place] 1.020 Urine Protein Trace Urine Glucose (UA) Negative Urine Ketones Trace Urine Blood Negative Urine Nitrite Negative Urine Bilirubin Negative Urine Urobilinogen (Auto) Negative Ur Leukocyte Esterase Negative Urine RBC 1 Urine WBC 1 Ur Squamous Epith Cells 0 Urine Bacteria None Ur Culture Indicated? Not Indicated Urine Opiates Screen Negative Urine Fentanyl Screen Negative Ur Barbiturates Screen Negative U Amphetamin/Meth Scrn Negative U Benzodiazepines Scrn Negative U Cocaine Metab Screen Negative U Marijuana (THC) Screen Positive A 02/17/25 02/17/25 02/18/25 18:15 19:56 04:43 WBC 11.1 H RBC 4.20 L Hgb 12.9 L D Hct 39.1 L MCV 93 MCH 30.7 MCHC 33.0 RDW Std Deviation 37.8 Plt Count 151 D Neut % (Auto) 83 H Lymph % (Auto) 9 L [place] % (Auto) 6 Eos % (Auto) 1 Baso % (Auto) 0 Neut # (Auto) 9.2 H Lymph # (Auto) 1.0 [place] # (Auto) 0.7 Eos # (Auto) 0.1 Baso # (Auto) 0.0 Immature Gran # (Auto) 0.03 H Absolute Nucleated RBC 0.00 Immature Gran % 0 Nucleated RBC % 0 PT 11.9 INR 1.1 APTT 25.0 Puncture Site Right Radial ABG pH 7.39 ABG pCO2 43 ABG pO2 64 L ABG HCO3 26 ABG O2 Saturation 93 ABG Base Excess 1 Oxygen Liter Flow 4 FiO2 21 Sodium 143 Potassium 3.9 D Chloride 105 Carbon Dioxide 26.5 Anion Gap 12 BUN 9 Creatinine 1.0 Estim Creat Clear Calc 122.9 eGFR > 60 BUN/Creatinine Ratio 9 L Glucose 80 Calculated Osmolality 282 Lactic Acid 1.5 Calcium 8.7 Corrected Calcium 8.9 Phosphorus 3.4 Magnesium 1.5 L Total Bilirubin 1.2 AST 24 ALT 22 Alkaline Phosphatase 53 D Total Protein 6.1 Albumin 3.8 D Globulin 2.3 Albumin/Globulin Ratio 1.7 Procalcitonin Ur Collection Type Urine Color Urine Clarity Urine pH Ur Specific [place] Urine Protein Urine Glucose (UA) Urine Ketones Urine Blood Urine Nitrite Urine Bilirubin Urine Urobilinogen (Auto) Ur Leukocyte Esterase Urine RBC Urine WBC Ur Squamous Epith Cells Urine Bacteria Ur Culture Indicated? Urine Opiates Screen Urine Fentanyl Screen Ur Barbiturates Screen U Amphetamin/Meth Scrn U Benzodiazepines Scrn U Cocaine Metab Screen U Marijuana (THC) Screen ABG Interpretation ABG results: 02/17/25 18:15 ABG pH 7.39 ABG pCO2 43 ABG pO2 64 L ABG HCO3 26 ABG O2 Saturation 93 ABG Base Excess 1 Quality Measures Quality Measures VTE prophylaxis Assessment & Plan Assessment Current Active Medications: Generic Name Dose Route Start Last Admin Trade Name Freq PRN Reason Stop Dose Admin Acetaminophen 650 mg 02/17/25 18:10 Acetaminophen 325 Mg Tablet PO 03/19/25 18:09 Q6H PRN Fever >100.4 or pain Hydrocodone Bitart/Acetaminophen 1 tab 02/17/25 18:10 Hydrocodone/Apap 5/325 Tablet PO 02/22/25 18:09 Q4HR PRN PAIN SCALE 4-10(Mod-Sev Docusate Sodium 100 mg 02/17/25 18:10 Docusate Sod 100 Mg Capsule PO 03/19/25 18:09 QDAY PRN CONSTIPATION Protocol Enoxaparin Sodium 40 mg 02/18/25 09:00 02/18/25 08:52 Enoxaparin Sod Inj 40 Mg/0.4 Ml Syringe SC 03/04/25 08:59 40 mg QDAY M[place]LE Administration Ampicillin Sodium/Sulbactam 100 mls @ 200 mls/hr 02/17/25 18:30 02/18/25 05:40 Sodium 3 gm/ Sodium Chloride IV 02/24/25 18:29 Infused Q6HR M[place]LE Infusion Lactated Ringer's 1,000 mls @ 80 mls/hr 02/17/25 18:21 02/17/25 19:32 Lactated Ringers IV 02/18/25 19:20 80 mls/hr .[id number] M[place]LE Administration Magnesium Sulfate 4 gm in 50 mls @ 12.5 mls/hr 02/18/25 06:20 02/18/25 06:30 Magnesium Sulfate Ivpb IV 02/18/25 10:19 12.5 mls/hr X1 ONE Administration Levetiracetam 1,500 mg 02/17/25 21:00 02/18/25 08:51 Levetiracetam Inj 100 Mg/Ml Vial 5ml IVP 03/19/25 20:59 1,500 mg Q12HR M[place]LE Administration Lorazepam 2 mg 02/17/25 18:15 Lorazepam 2 Mg/Ml Vial IVP 02/20/25 18:14 Q5MIN PRN SEIZURES Nicotine 14 mg 02/18/25 10:11 Nicotine Patch 14 Mg/24 Hr Patch.Td24 TOP X1 PRN SMOKING CESSATION Ondansetron HCl 4 mg 02/17/25 18:10 02/18/25 05:12 Ondansetron Inj 2 Mg/Ml Inj 2 Ml IVP 03/19/25 18:09 4 mg Q6H PRN Administration NAUSEA OR VOMITING Protocol Sennosides 1 tab 02/17/25 18:10 Senna Tablet PO 03/19/25 18:09 QDAY PRN constipation Protocol Plan 24M with history of cellulitis and epilepsy. He presents initially to the ER on 02/17/25 due to increased in seizure activities at home. He was seen at [place] ER on 02/04/25 for the same compliant, and was put on Keppra 1000mg BID. He had another episode of seizure with aspriation at the restroom in the ER, 2mg ativan given, and CXR shows bilateral perihilar pneumonia. He was admitted for uncontrolled seizure activity. Neurology recommends MRI and EEG. #Breakthrough Seizure History of epilepsy, was put on Keppra 1000mg BID. Reports of increase in seizure acitvities at home. - Continue Keppra 1500mg BID per neurology recommendation - Seizure precaution. - Passed swallow screening, resume regular diet. - 1mg Ativan PRN. - Neurology consulted. Pending MRI brain and EEG study. #Aspiration Pneumonia Aspirated while in the restroom. CXR shows bilateral pneumonia. - Unasyn 3gm Q6 started. 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 Gaitan Case discussed with my attending Dr. Vickey Mckinney DO PGY 1 Attending Provider Attestation/Addendum Loulou Lynn DO, attest that I was physically present for the owen portions of the service and evaluated the patient with the resident and I reviewed and discussed the case with the resident and agree with the resident's findings and plans of care as documented above Patient seen and eval this a.m. He states that Keppra does not work well for him hence his frequent episodes of seizures. Patient has been eager to go AGAINST MEDICAL ADVICE. However, partner is at bedside and is able to keep patient calm and compliant. Will follow-up with neurology recommendations. Pending MRI and EEG at this time. Patient remains on Unasyn due to aspiration pneumonia. However, patient is currently on room air and without any respiratory distress. Patient and partner states that he does not drive or operate any machinery given seizure history.
--- NOTE | 2025-02-18 11:40 | PC.SS ---
This is 24-year-old, , single male who presented to the ED due to suffering from seizures. Patient appeared alert and oriented to self, place and situation. Patient was pleasant. Patient confirmed address and phone number. Patient reported that he resides with his mother. Patient is independent with all ADLs, no DME use. Patient assigned his significant other, Flores Renteria as his medical decision maker. Patient's PCP is TIAN. When medically clear, patient will return home; no need for transportation.
--- NOTE | 2025-02-18 19:37 | PC.NURSE ---
PT WANTS TO GO HOME AMA, PT'S SIGNIFICANT OTHER CHEMA AT BEDSIDE. PT ALERT AND ORIENTED X 4. DR SANDOVAL NOTIFIED AND CAME TO TALK WITH PT WITH DR. TERAN. PT STATED HE DID NOT WANT TO COME TO THE HOSPITAL AND STAY LONGER. INFORMED HIM OF RISK LEAVING AMA. PT DECIDED TO STAY AND AGREED WITH PLAN OF CARE.
[2025-02-18] MEDS: DIVALPROEX SOD DR 500 MG TABLET.DR 1000 MG PO (21:22)
--- NOTE | 2025-02-18 22:00 | PC.NURSE ---
PT SHOWERED WITH MIDDLE SCHOOL ASSISTANT PRINCIPAL ASSISTANCE AND TOLERATED WELL.
--- NOTE | 2025-02-18 22:29 | PD.NEUROPROG ---
Documentation for date of: 02/18/25 Subjective Subjective Interval history: Patient was seen and telemed today with the his significant other at the bedside. No seizures reported after admission. Patient stated that the Keppra does not work and has worsening seizures after being on it and is causing mood changes. Exam - Neurology Vital Signs Temp Pulse Resp BP Pulse Ox O2 Del Method O2 Flow Rate 97.0 F 64 19 138/58 H 99 Room Air 4 02/18/25 20:00 02/18/25 20:00 02/18/25 20:00 02/18/25 20:00 02/18/25 20:00 02/18/25 20:00 02/18/25 04:00 Narrative Exam GENERAL APPEARANCE: Well hydrated, well-nourished in no acute distress. HEENT: Normocephalic, atraumatic, extraocular movements intact. Pupils: Equal reacting to light and accommodation NECK: Supple, no JVD or bruits. CARDIOVASULAR: Heart: S1, S2 heard, regular without S3-S4 or murmur no rubs or gallops. LUNGS/CHEST: Clear to auscultation bilaterally. No rails, rhonchi, or wheezing. Normal inspection. ABDOMEN: Soft, nontender, with normal bowel sounds. No pulsatile masses. No rebound, rigidity, or guarding. Normal inspection and palpation. EXTREMITIES: Normal inspection and palpation. No edema, clubbing or cyanosis. SKIN: Warm and dry without rashes. Normal inspection. MUSCULOSKELETAL: No cervical, thoracic, lumbar or midline bony tenderness. Normal inspection. NEURO: Alert, awake and oriented x3. Cranial nerves: II through XII grossly intact. Speech and language: Normal with no dysarthria or dysphasia. Motor system: Tone and bulk: Normal: Strength: 5 out of 5 in all 4 extremities; No pronator drift noted. Deep tendon reflexes: 2+ bilaterally symmetrical. Plantar reflex: Downgoing bilaterally. Sensory system: Intact to all modalities of sensation bilaterally. Coordination: Intact to [id number] and ykpl-hihk-eddd test bilaterally. No ataxia, no dysmetria, or dysdiadochokinesia noted. No intention tremors noted. Gait: Normal. Toe, heel, tandem walk all are normal. Romberg: Negative. No signs of meningeal irritation noted. PSYCHIATRIC: Normal mood and affect. Objective Labs 02/18/25 04:43 02/18/25 04:43 Labs: Laboratory Results - last 24 hr 02/18/25 04:43 WBC 11.1 H RBC 4.20 L Hgb 12.9 L D Hct 39.1 L MCV 93 MCH 30.7 MCHC 33.0 RDW Std Deviation 37.8 Plt Count 151 D Neut % (Auto) 83 H Lymph % (Auto) 9 L Duval % (Auto) 6 Eos % (Auto) 1 Baso % (Auto) 0 Neut # (Auto) 9.2 H Lymph # (Auto) 1.0 Duval # (Auto) 0.7 Eos # (Auto) 0.1 Baso # (Auto) 0.0 Immature Gran # (Auto) 0.03 H Absolute Nucleated RBC 0.00 Immature Gran % 0 Nucleated RBC % 0 PT 11.9 INR 1.1 APTT 25.0 Sodium 143 Potassium 3.9 D Chloride 105 Carbon Dioxide 26.5 Anion Gap 12 BUN 9 Creatinine 1.0 Estim Creat Clear Calc 122.9 eGFR > 60 BUN/Creatinine Ratio 9 L Glucose 80 Calculated Osmolality 282 Calcium 8.7 Corrected Calcium 8.9 Phosphorus 3.4 Magnesium 1.5 L Total Bilirubin 1.2 AST 24 ALT 22 Alkaline Phosphatase 53 D Total Protein 6.1 Albumin 3.8 D Globulin 2.3 Albumin/Globulin Ratio 1.7 ABG Interpretation ABG results: 02/17/25 18:15 ABG pH 7.39 ABG pCO2 43 ABG pO2 64 L ABG HCO3 26 ABG O2 Saturation 93 ABG Base Excess 1 Assessment & Plan Assessment and plan (1) Seizure disorder: Status: Acute Assessment and plan: Follow-up with the EEG and MRI brain as becomes available. Discontinue Keppra because of the side effects as per family and try Depakote 1000 mg twice a day. (2) Aspiration pneumonia: Status: Acute Assessment and plan: Continue with antibiotics
[2025-02-19] VITALS: BP 93/57; PULSE 57; PULSE 59; RESP 15; TEMP 36.1; O2SAT 95
--- NOTE | 2025-02-19 | XR_ITS ---
Examination: MRI of brain without intravenous contrast. MRI brain with intravenous contrast. Date and time of exam:February 19, 2025 1241 hours INDICATIONS: Seizures February 17, 2025 Technique: Multiple axial and sagittal images of the brain to been obtained. Siemens high-resolution 1.52 Miriam short bore scanner utilized. Sagittal sections, T1 weighted images, TR 500, TE 14, are performed. Axial sections proton-density and T2-weighted images have been obtained. Inversion recovery axial images, TR 9260, TE 111, TR 2500. Diffusion weighted images, axial sections, TR 4800, TE 128, B value 1000. Axial sections, ADC map, TR 4800, TE 128. Axial and coronal images were also obtained post 16 cc gadolinium administered intravenously. Findings:: Enlargement of the sella turcica is not present. The optic chiasm and infundibular stalk are not remarkable. There is no localized enlargement of the medulla or willis. Fourth ventricle and cerebellar tonsils appear normal in position. No subacute area of hemorrhage density is seen. Fourth ventricle is midline. Mass in the cerebellopontine angle region is not evident. 7th and 8th nerve complexes exhibit symmetry Globes are symmetrical Orbital musculature including medial lateral rectus muscles do not exhibit abnormality Increased white matter signal is not seen Right maxillary sinusitis Effacement of the cortical sulcal markings is not identified. Mass effect upon the ventricular system is not identified. Diffusion-weighted images demonstrate no focus of restricted diffusion Contrast images demonstrate no abnormal enhancement Impression: Negative for acute hemorrhage mass effect or midline shift No acute infarct No MR findings diagnostic for demyelinating disease
[2025-02-19 04:00] VITALS: BP 106/63; PULSE 59; PULSE 71; RESP 20; TEMP 36.1; O2SAT 96
[2025-02-19 05:30] VITALS: BMI 24.4
[2025-02-19] MEDS: AMPICILLIN/SULBAC INJ 3 GM in SODIUM CHLORIDE 0.9% (POP) 100 ML IV (05:41)
[2025-02-19 06:30] LABS: Basophils # (Auto) 0.0 Thou/mm3 (0.0-0.2); Basophils % (Auto) 1 % (0-2.5); Eosinophils # (Auto) 0.3 Thou/mm3 (0.0-0.5); Eosinophils % (Auto) 5 % (0-10); Hematocrit 35.5 % (41.0-53.0); Hemoglobin 12.1 g/dL (13.5-16.0); Immature Granulocytes Auto 0.02 Thou/mm3 (0.00-0.00); Lymphocytes # (Auto) 1.4 Thou/mm3 (1.0-4.8); Lymphocytes % (Auto) 24 % (10-50); Mean Corpuscular HGB Conc 34.1 g/dl (31.0-37.0); Mean Corpuscular Hemoglobin 30.3 pg (25.0-35.0); Mean Corpuscular Volume 89 fL (80-100); Monocytes # (Auto) 0.6 Thou/mm3 (0.0-0.8); Monocytes % (Auto) 10 % (0-12); Neutrophils # (Auto) 3.3 Thou/mm3 (1.8-7.7); Neutrophils % (Auto) 60 % (37-80); Nucleated Red Blood Cell # 0.00 Thou/mm3 (0.00-0.00); Nucleated Red Blood Cell % 0 /100 WBC (0); Platelet Count 162 Thou/mm3 (140-440); RDW Standard Deviation 36.2 fL (35.1-43.9); Red Blood Count 4.00 Miln/mm3 (4.50-5.90); White Blood Count 5.6 Thou/mm3 (3.8-10.6)
[2025-02-19 06:42] LABS: Alanine Aminotransferase 19 U/L (10-49); Albumin, Serum 3.8 gm/dL (3.5-5.0); Albumin/Globulin Ratio 1.8 (1.2-2.2); Alkaline Phosphatase 50 U/L (46-116); Anion Gap 10 (7-16); Aspartate Amino Transferase 16 U/L (0-34); BUN/Creatinine Ratio 7 Ratio (12-20); Bilirubin,Total 1.0 mg/dL (0.3-1.2); Blood Urea Nitrogen 8 mg/dL (9-23); Calcium 9.1 mg/dL (8.3-10.6); Calcium (Corrected) 9.3 mg/dL (8.5-10.1); Carbon Dioxide 28.2 mMol/L (20.0-31.0); Chloride 106 mMol/L (98-107); Creatinine (Component) 1.1 mg/dL (0.6-1.3); Estimated Creatinine Clearance 111.7 mL/min (>60); Globulin 2.1 gm/dL (2.3-3.5); Glucose 91 mg/dL (74-106); Magnesium 1.4 mg/dL (1.6-2.6); Osmolality,Calculated 285 (275-295); Phosphorous 2.5 mg/dL (2.4-5.1); Potassium 3.8 mMol/L (3.4-5.1); Sodium 144 mMol/L (136-145); Total Protein 5.9 gm/dL (5.7-8.2); eGFR > 60 See Note
[2025-02-19 08:00] VITALS: BP 115/74; PULSE 69; RESP 18; TEMP 36.8; O2SAT 97
[2025-02-19 08:41] VITALS: PULSE 71; RESP 20; RESP 96
--- NOTE | 2025-02-19 08:44 | PD.RESPRO ---
Documentation for date of: 02/19/25 Subjective Subjective Interval history: No overnight events. Evaluated at bedside. Pt reports doing well. No seizure events over night per nursing and girlfriend at bedside. He's put on Depakote 1000mg PO BID, d/c Keppra 1500mg BID. D/C Unsyn, start on PO Augmentin. Exam Vital Signs Temp Pulse Resp BP Pulse Ox O2 Del Method O2 Flow Rate 97.0 F 71 20 106/63 96 Room Air 4 02/19/25 04:00 02/19/25 08:41 02/19/25 08:41 02/19/25 04:00 02/19/25 04:00 02/19/25 04:00 02/18/25 04:00 Narrative Exam General: Well appearing, well nourished, in no distress. Skin: Dry and intact. Head: Normocephalic, atraumatic, no visible or palpable masses, depressions, or scaring. Mouth: left tongue blister due to seizure activity prior to admission in the ER, no bleeding observed. Mucosa moist. Heart: No cardiomegaly or thrills; regular rate and rhythm, no murmur or gallop Lungs: CTAB. No wheezing or rhales. Abdomen: No tenderness, organomegaly, masses, or hernia Extremities: No amputations or deformities, cyanosis, edema or varicosities. Objective Labs 02/19/25 05:42 02/19/25 05:42 Labs: Laboratory Results - last 24 hr 02/19/25 05:42 WBC 5.6 D RBC 4.00 L Hgb 12.1 L Hct 35.5 L MCV 89 MCH 30.3 MCHC 34.1 RDW Std Deviation 36.2 Plt Count 162 Neut % (Auto) 60 Lymph % (Auto) 24 Barnes % (Auto) 10 Eos % (Auto) 5 Baso % (Auto) 1 Neut # (Auto) 3.3 Lymph # (Auto) 1.4 Barnes # (Auto) 0.6 Eos # (Auto) 0.3 Baso # (Auto) 0.0 Immature Gran # (Auto) 0.02 H Absolute Nucleated RBC 0.00 Immature Gran % 0 Nucleated RBC % 0 Sodium 144 Potassium 3.8 Chloride 106 Carbon Dioxide 28.2 Anion Gap 10 BUN 8 L Creatinine 1.1 Estim Creat Clear Calc 111.7 eGFR > 60 BUN/Creatinine Ratio 7 L Glucose 91 Calculated Osmolality 285 Calcium 9.1 Corrected Calcium 9.3 Phosphorus 2.5 Magnesium 1.4 L Total Bilirubin 1.0 AST 16 ALT 19 Alkaline Phosphatase 50 Total Protein 5.9 Albumin 3.8 Globulin 2.1 L Albumin/Globulin Ratio 1.8 ABG Interpretation ABG results: 02/17/25 18:15 ABG pH 7.39 ABG pCO2 43 ABG pO2 64 L ABG HCO3 26 ABG O2 Saturation 93 ABG Base Excess 1 Quality Measures Quality Measures VTE prophylaxis Assessment & Plan Assessment Current Active Medications: Generic Name Dose Route Start Last Admin Trade Name Freq PRN Reason Stop Dose Admin Acetaminophen 650 mg 02/17/25 18:10 Acetaminophen 325 Mg Tablet PO 03/19/25 18:09 Q6H PRN Fever >100.4 or pain Hydrocodone Bitart/Acetaminophen 1 tab 02/17/25 18:10 Hydrocodone/Apap 5/325 Tablet PO 02/22/25 18:09 Q4HR PRN PAIN SCALE 4-10(Mod-Sev Divalproex Sodium 1,000 mg 02/18/25 21:15 02/18/25 21:[address] 500 Mg Tablet.Dr PO 03/20/25 21:14 1,000 mg BID MIRACLE Administration Docusate Sodium 100 mg 02/17/25 18:10 Docusate Sod 100 Mg Capsule PO 03/19/25 18:09 QDAY PRN CONSTIPATION Protocol Enoxaparin Sodium 40 mg 02/18/25 09:00 02/18/25 08:52 Enoxaparin Sod Inj 40 Mg/0.4 Ml Syringe SC 03/04/25 08:59 40 mg QDAY MIRACLE Administration Ampicillin Sodium/Sulbactam 100 mls @ 200 mls/hr 02/17/25 18:30 02/19/25 06:26 Sodium 3 gm/ Sodium Chloride IV 02/24/25 18:29 Infused Q6HR MIRACLE Infusion Magnesium Sulfate 4 gm in 50 mls @ 12.5 mls/hr 02/19/25 07:32 Magnesium Sulfate Ivpb IV 02/19/25 11:31 X1 ONE Lorazepam 2 mg 02/17/25 18:15 Lorazepam 2 Mg/Ml Vial IVP 02/20/25 18:14 Q5MIN PRN SEIZURES Nicotine 14 mg 02/18/25 10:11 Nicotine Patch 14 Mg/24 Hr Patch.Td24 TOP X1 PRN SMOKING CESSATION Ondansetron HCl 4 mg 02/17/25 18:10 02/18/25 05:12 Ondansetron Inj 2 Mg/Ml Inj 2 Ml IVP 03/19/25 18:09 4 mg Q6H PRN Administration NAUSEA OR VOMITING Protocol Sennosides 1 tab 02/17/25 18:10 Senna Tablet PO 03/19/25 18:09 QDAY PRN constipation Protocol Plan 24M with history of cellulitis and epilepsy. He presents initially to the ER on 02/17/25 due to increased in seizure activities at home. He was seen at [facility] on 02/04/25 for the same compliant, and was put on Keppra 1000mg BID. He had another episode of seizure with aspriation at the restroom in the ER, 2mg ativan given, and CXR shows bilateral perihilar pneumonia. He was admitted for uncontrolled seizure activity. Pending MRI and EEG read. #Breakthrough Seizure History of epilepsy, was put on Keppra 1000mg BID. Reports of increase in seizure acitvities at home. - D/C Keppra 1500mg BID, start on Depakote 1000mg BID. - Seizure precaution. - Passed swallow screening, resume regular diet. - 1mg Ativan PRN. - Neurology consulted. Pending MRI brain and EEG study. #Aspiration Pneumonia Aspirated while in the restroom. CXR shows bilateral pneumonia. - D/C Unasyn 3gm Q6H, switch to PO Augmentin 875mg BID. 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 Gaitan Case discussed with my attending Dr. Vickey Mckinney, DO PGY 1
[2025-02-19 09:00] VITALS: O2SAT 98
[2025-02-19] MEDS: Magnesium Sulfate 4 GM Ivpb 4 GM/50 ML BAG IV (09:01)
[2025-02-19] MEDS: ENOXAPARIN SOD INJ 40 MG/0.4 ML SYRINGE SC (09:02)
[2025-02-19] MEDS: DIVALPROEX SOD DR 500 MG TABLET.DR 1000 MG PO (09:02)
[2025-02-19 12:00] VITALS: BP 121/79; PULSE 68; RESP 17; TEMP 36.7; O2SAT 99
--- NOTE | 2025-02-19 13:51 | ESDS_ITS ---
<Statement entered by Loulou Hurd DO - 02/20/25 13:14> I, Loulou Hurd DO, attest that I was physically present for the owen portions of the service and evaluated the patient with the resident and I reviewed and discussed the case with the resident and agree with the resident's findings and plans of care as documented above <Statement entered by Fritz Gaitan MD - 02/19/25 15:32> I discussed and supervised with the record label internship physician who took care of this patient. I personally saw and examined the patient. I agree with most of the assessment and plan. Disclaimer: Despite multiple revisions, due to the dictation software being used, the document bellow may not be free of grammatical errors including phonetic/typographic errors. However, this does not deter from our commitment to providing health care in the patient's best interest in mind. Plan of care discussed with attending Physician Dr. Vickey Gaitan MD PGY-3 Planned Discharge Date 02/19/25 DS: Providers Provider Date of admission: 02/17/25 18:10 Primary care physician: Physician No Primary/Family Admitting Provider: Loulou Hurd DO Attending Provider on Admission: Loulou Hurd DO Consults: 02/17/25 17:42 Consult to Neurology / Tele-Neurology Stat Comment: Seizure Consulting Provider: Abram Lugo Attending Provider on DC: Loulou Hurd DO Discharging Provider: Benny Mckinney DO Anticipated date of discharge: 02/19/25 DS: Diagnosis Problem List Completed Was Problem List Reviewed/Reconciled?: Yes Hospital Course Hospital Course Hospital course: Mr. Hahn is a 24M with history of epilepsy on Keppra 1g BID presents for breakthrough seizures. Pt had an episode of seizure with aspiration while he was at the ED. He was given Unasyn for his aspiration pneumonia, and put on 1500mg Keppra to control his seizures. Per neurology recommendation, Keppra was discontinued because of the side effects as per family and try Depakote 1000 mg twice a day. MRI head was unremarkable, pending EEG read. Recommend pt to follow up outpatient in [address] Lugo. Pt has no reported seizure activities during his stay in the hospital. Pt is medically and physically stable for discharge. Diagnosis #Breakthrough Seizure #Aspiration Pneumonia # Marijuana use #Leukocytosis- resolved Discharge Plan: Take Augmentin 875 mg twice a day for 3 more days to complete antibiotic course You have been placed on dvalproex 1000 mg twice a day per neuro recs Take all home medications as prescribed Follow up with Neurology Dr Canales as outpatient within 2 weeks Follow up with your PCP as outpatient within a week In case of emergency call 911 Or come back to the ED Case discussed with my senior resident Dr. Gaitan Case discussed with my attending Dr. Vickey Mckinney DO PGY 1 Time Spent with Patient Time attestation: Total time spent providing and/or coordinating discharge services: Time spent: Greater than 30 minutes Exam Vital Signs Temp Pulse Resp BP Pulse Ox O2 Del Method O2 Flow Rate 98.1 F 68 17 121/79 99 Room Air 4 02/19/25 12:00 02/19/25 12:00 02/19/25 12:00 02/19/25 12:00 02/19/25 12:00 02/19/25 12:00 02/18/25 04:00 Narrative Exam General: Well appearing, well nourished, in no distress. Skin: Dry and intact. Head: Normocephalic, atraumatic, no visible or palpable masses, depressions, or scaring. Mouth: Mucosa moist. Heart: No cardiomegaly or thrills; regular rate and rhythm, no murmur or gallop Lungs: CTAB. No wheezing or rhales. Abdomen: No tenderness, organomegaly, masses, or hernia Extremities: No amputations or deformities, cyanosis, edema or varicosities. Discharge Plan Plan Patient Disposition: HOME (Self Care) Care Plan Goals: Take Augmentin 875 mg twice a day for 3 more days to complete antibiotic course Avoid driving due to recent seizure episode You have been placed on Divalproex 1000 mg twice a day per neuro recs Take all home medications as prescribed Follow up with Neurology Dr Canales as outpatient within 2 weeks Follow up with your PCP as outpatient within a week In case of emergency call 911 Or come back to the ED Prescriptions/Referrals Prescriptions/Med Rec: New divalproex 500 mg Tablet,Delayed Release (Dr/Ec) 1,000 mg PO BID Qty: 90 0RF amoxicillin 875 mg tablet 875 mg PO BID 3 Days Qty: 6 0RF Discontinued levetiracetam [Keppra] 1,000 mg tablet 1,000 mg PO BID Qty: 60 0RF Patient Comments: Dose been changed. levetiracetam [Keppra] 1,000 mg tablet 1,500 mg PO BID amoxicillin-pot clavulanate 875-125 mg tablet 1 tab PO BID Qty: 14 0RF doxycycline hyclate 100 mg capsule 100 mg PO BID Qty: 14 0RF ibuprofen 600 mg tablet 600 mg PO Q8H PRN (Reason: fever or pain) Qty: 20 0RF levetiracetam 1,000 mg tablet 1,000 mg PO BID Patient Comments: take 1 tablet by mouth twice a day Referrals: No Primary/Family,Physician [Primary Care Provider] - Patient/Caregiver Discharge Instructions Education Materials: Self-Care for Epilepsy, Living Well with Epilepsy, Discharge Instructions for Epilepsy Print Language: Sammarinese Stand Alone Forms: Lucille Award Info., Patient Portal Info Letter Discharge Order Discharge Orders: Discharge (Routine); Ordered 02/19/25 Ordered By: Fritz Gaitan Quality Discharge Quality Measures none
--- NOTE | 2025-02-19 14:28 | PC.SS ---
SS follow u note; Patient will discharge home today.
== END 2025-02-19 14:47 | disposition home or self-care (01) | DRG 53 ==
LOC: SERX 17:49 → SERHOLD 18:32 → S2NX 22:04
PROVIDERS: Nurse Practitioner Family; Admitting Provider Internal Medicine; Emergency Provider Family Medicine; Visit Provider Internal Medicine
DX: G40.919 Epilepsy, unspecified, intractable, without status epilepticus (principal); J69.0 Pneumonitis due to inhalation of food and vomit; J96.01 Acute respiratory failure with hypoxia; F12.90 Cannabis use, unspecified, uncomplicated; Z79.899 Other long term (current) drug therapy; Z91.199 Patient's noncompliance with other medical treatment and regimen due to unspecified reason
CPT/HCPCS: 36415; 36600; 70450; 70553; 71045; 72125; 80053; 80307; 81001; 82803; 83605; 83735; 84100; 84145; 85025; 85610; 85730; 87040; 87811; 92610; 95816; 96361; 96365; 96366; 96375; 96376; A9579; J0295; J0692; J1650; J1953; J2060; J2405; J3475; J7050; J7120; A9270

== ENCOUNTER 2025-04-07 11:16 | Inpatient (IN) | payer MEDICAID, SELFPAY ==
[2025-04-07] VITALS (8 sets, daily range): BP systolic 107–118; BP diastolic 58–77; PULSE 68–97; RESP 14–29; TEMP 36.5–37.3; O2SAT 86–98; BMI 22.9; BMI 28.1
--- NOTE | 2025-04-07 11:31 | EKG_ITS ---
[facility] Test Date: 2025-04-07 Pat Name: RAHEL LEWIS Department: Room: - Gender: Male [employer]: : 2000 Requested By: ED Temporary Provider Order Number: [id number] Reading MD: ED Temporary Provider Measurements Intervals [place] Rate: 67 P: 62 DC: 158 QRS: 59 QRSD: 93 T: 55 QT: 368 QTc: 389 Interpretive Statements SINUS RHYTHM Compared to ECG 07/20/2023 09:10:13 T-wave abnormality no longer present /store/S0/[id number]
--- NOTE | 2025-04-07 11:39 | XR_ITS ---
Examination: AP chest single view Technique: AP upright portable chest single view Date and time: April 07, 2025, 11:44 AM Indications: Seizure today. Findings: Minor prominence left ventricle. No aspiration pneumonia. The osseous structures are intact. Impression: No aspiration pneumonia.
--- NOTE | 2025-04-07 11:44 | PD.EDSEIZ ---
ED Seizures RME/HPI General Chief Complaint: Seizure Stated Complaint: SEIZURES Time Seen by Provider: 04/07/25 11:34 Arrival date/time: 04/07/25 11:16 RME / HPI RME / HPI Narrative: 24-year-old male patient with significant history of seizure disorder, currently taking valproic acid 1 g twice daily, was brought in by EMS for evaluation regarding witnessed tonic-clonic seizure. Unknown time. On my initial evaluation patient is only back to baseline. Patient is denying any complaints. Per EMS when they arrived patient was noted to be GCS 13. Having post seizure confusion. Currently patient is not having any headache neck pain chest pain abdominal pain or other complaints. Patient told me that he forgot to take his Depakote this morning. No fever no vomiting no diarrhea no constipation. Related Data Previous Rx's ?Medication ?Instructions ?Recorded divalproex 500 mg tablet,delayed 1,000 mg (2 x 500 mg) PO BID #90 02/19/25 release tabs Allergies Allergy/AdvReac Type Severity Reaction Status Date / Time No Known Allergies Allergy Verified 04/07/25 11:24 Review of Systems Review of Systems Narrative Review of Systems: Review of system reviewed and within normal limits except mentioned in HPI ED Exam Narrative Physical exam: VITAL SIGNS: Reviewed. GENERAL APPEARANCE: Alert and interactive, follows commands, no acute distress, HEAD AND FACE: Non-traumatic. ENT: PERRL, pink conjunctivitis, eyelid no trauma, Mucous membrane moist. NECK: Supple, nontender, no nuchal rigidity. CHEST: No tenderness, no crepitus, no paradoxical movement, no retractions. LUNGS: Clear, well ventilated, symmetric, no rales, no wheezing, no ronchi, no stridor, good breath sounds bilaterally. HEART: Regular rate, regular rhythm, no murmur, no gallops. ABDOMEN: Soft, positive bowel sounds, nondistended, no guarding, nontender, no rebound, no masses, RECTAL: Deferred. GENITAL: Deferred. NEUROLOGICAL: Gross motor function intact sensory function intact, Appropriate for age. MUSCULOSKELETAL: low back nontender, full range of motion. EXTREMITIES: Nontender, full range of motion. SKIN: Color pink, dry, no rash, no lacerations, no abrasions, no contusions. LYMPHATICS: Deferred. Course Quality Measures none Orders Category Date Time Status Bedside COVID-19 Antigen Test NOW Care 04/07/25 11:39 Active COVID-19 Screening Questionnaire NOW Care 04/07/25 14:11 Active Decision to Admit X1 Care 04/07/25 14:11 Active EKG (ED ONLY) *Do not use* NOW Care 04/07/25 11:31 Completed Consult to Neurology / Tele-Neurology Stat Cons 04/07/25 13:[address] head/brain wo con Stat Exams 04/07/25 12:04 Completed EKG (ED Only) Stat Exams 04/07/25 11:31 Draft XR chest 1V Stat Exams 04/07/25 11:39 Taken XR chest 1V Stat Exams 04/07/25 14:10 Ordered CBC Stat Lab 04/07/25 12:02 Completed CBC [CBC] Stat Lab 04/07/25 14:11 Ordered CMP [Comprehensive Metabolic Panel] Stat Lab 04/07/25 14:11 Ordered Comprehensive Metabolic Panel Stat Lab 04/07/25 12:02 Completed Lactate (Lactic Acid) Stat Lab 04/07/25 14:10 Ordered Prothrombin Time with INR Stat Lab 04/07/25 12:02 Completed UA, C/S IF [Urinalysis, C/S if Indicated] Stat Lab 04/07/25 11:40 Ordered Valporic Acid (Depak)* Stat Lab 04/07/25 12:02 Received Cefepime Inj [Maxipime Inj] 2 gm Med 04/07/25 12:25 Discontinued SODIUM CHLORIDE 0.9% (Popper) [Ns 0.9% (P)] 50 ml IV X1 Midazolam Inj [Versed Inj] Med 04/07/25 12:04 Discontinued 4 mg .ROUTE .STK-MED ONE Midazolam Inj [Versed Inj] Med 04/07/25 12:03 Discontinued 4 mg IVP X1 ONE Ringers Lactated 1000 ml [Lactated Ringers] 1,000 ml Med 04/07/25 11:41 Discontinued IV 999 mls/hr Vancomycin/Ns 1 gm Ivpb 200 ml Med 04/07/25 12:24 Discontinued IV X1 levETIRAcetam INJ [Keppra Inj] Med 04/07/25 12:22 Discontinued 1,000 mg IVP X1 ONE Vital Signs Vital signs: Vital Signs Temperature 98.2 F 04/07/25 11:18 Pulse Rate 85 04/07/25 11:18 Respiratory Rate 18 04/07/25 11:18 Blood Pressure 107/70 04/07/25 11:18 Pulse Oximetry (%) 95 04/07/25 11:18 Oxygen Delivery Method Room Air 04/07/25 11:18 Seizure MDM Narrative MDM Narrative:: 24-year-old male patient with significant history of seizure disorder, currently taking valproic acid 1 g twice daily, was brought in by EMS for evaluation regarding witnessed tonic-clonic seizure. Unknown time. On my initial evaluation patient is only back to baseline. Patient is denying any complaints. Per EMS when they arrived patient was noted to be GCS 13. Having post seizure confusion. Currently patient is not having any headache neck pain chest pain abdominal pain or other complaints. Patient told me that he forgot to take his Depakote this morning. No fever no vomiting no diarrhea no constipation. EKG showed sinus rhythm, ventricular rate of 67 bpm, SD interval 158 MS, no ST segment elevation or depression noted. CT scan of the head came back unremarkable. Initial chest x-ray prior to another episode of seizure in the ED came back unremarkable. After talking to the patient, patient was advised to take his on Depakote 1 g p.o. After 10 minutes patient developed another tonic-clonic seizure, lasting for several minutes. Patient was noted to be hypoxic, and having gurgling sound and possibly aspirating. Patient was started on IV Keppra, IV cefepime and IV vancomycin. Patient was placed on high flow, now satting 95%. Patient still having postictal sedation. After patient also received Versed IV. I spoke with neurologist, Dr Lugo, discussed the case, and told me that she will see the patient in the floor. Spoke with hospitalist, who admitted the patient. Patient data External records reviewed:: None Clinical information provided by:: patient Social determinants that could affect healthcare access:: none Patient has the following chronic illnesses:: Seizure disorder How is presenting disease/condition affected by chronic disease/condition?: exacerbated by Evaluation data The following diagnostics were reviewed and interpreted by me:: lab results, radiology exam(s) and EKG tracing(s) Lab and/or radiology exams considered but not ordered:: None Interpretation Summary: Patient's initial laboratory workup all came back unremarkable. Medications / Prescriptions Medications or Prescriptions considered but not ordered:: None Medication administrations:: Medication Administration History Discontinued Medications Lactated Ringer's (Lactated Ringers) 1,000 mls @ 999 mls/hr IV .Q1H1M ONE Stop: 04/07/25 12:41 Last Infusion: 04/07/25 12:52 Dose: Infused Documented By: Admin: 04/07/25 11:51 Dose: 999 mls/hr Documented By: BY Vancomycin/Sodium Chloride (Vancomycin/Ns 1 Gm Ivpb) 200 mls @ 120 mls/hr IV X1 ONE Stop: 04/07/25 14:03 Last Admin: 04/07/25 12:37 Dose: 120 mls/hr Documented By: GEOFFREY Cefepime HCl 2 gm/ Sodium (Chloride) 50 mls @ 100 mls/hr IV X1 ONE Stop: 04/07/25 12:54 Last Infusion: 04/07/25 13:06 Dose: Infused Documented By: Admin: 04/07/25 12:36 Dose: 100 mls/hr Documented By: GEOFFREY Levetiracetam (Levetiracetam Inj 100 Mg/Ml Vial 5ml) 1,000 mg IVP X1 ONE Stop: 04/07/25 12:23 Last Admin: 04/07/25 12:29 Dose: 1,000 mg Documented By: BY Midazolam HCl (Midazolam Inj 1 Mg/Ml Vial 2 Ml) 4 mg IVP X1 ONE Stop: 04/07/25 12:04 Last Admin: 04/07/25 12:06 Dose: 4 mg Documented By: SALOME Midazolam HCl (Midazolam Inj 1 Mg/Ml Vial 2 Ml) Confirm Administered Dose 4 mg .ROUTE .STK-MED ONE Stop: 04/07/25 12:05 Last Admin: 04/07/25 12:08 Dose: Not Given Documented By: SALOME Non-Admin Reason: Duplicate Medication on eMAR See MDM Consultations Consultation(s) initiated? (list below): Yes Consultation #1 (Physician, Specialty, Details): Dr Lugo, teleneurologist. Diagnosis Seizure Differential Diagnosis: intractable seizure disorder and generalized seizure Most likely diagnosis given after review of the tests above:: Breakthrough seizure, aspiration pneumonia, hypoxia Admission Indicated Admission indicated?: indicated Explain why admission is indicated or not indicated:: Further management Admission Request Was there a request for admission?: Yes Admission Attestation Admission request attestation: Discussed case with Hospitalist service regarding admission. Discussed patients ED course, exam findings, labs, and radiology results. The Hospitalist [agrees to accept the patient for admission. Disposition Plan Disposition Plan: Admit Discharge Plan Plan Patient Disposition: Admit Acute Care w/in Hospital Discharge Disposition comment: Stable Prescriptions/Referrals Prescriptions/Med Rec: No Action divalproex 500 mg Tablet,Delayed Release (Dr/Ec) 1,000 mg PO BID Qty: 90 0RF Referrals: Jerome Wood MD [Primary Care Provider, Family Practice] - In 1 week Problem List Clinical Impression: Seizure, Hypoxia, Aspiration pneumonia Patient/Caregiver Discharge Instructions Print Language: Urdu Stand Alone Forms: Lucille Award Info., Patient Portal Info Letter
[2025-04-07] MEDS: RINGERS LACTATED 1000 ML 1,000 ML 999 ML IV (11:51)
--- NOTE | 2025-04-07 11:53 | PC.NURSE ---
per ems [facility] patient was found outside on the floor,possbible seizure was unwitnessed, patient was confussed and intially gcs of 13 , not shure if patient had taken depakote for seizures , takes depakote 1000, has a 18g to the LAC placed by ems
--- NOTE | 2025-04-07 11:55 | PC.NURSE ---
md at bedside speaking to patient, patient to take his depakote 1000 at this time
--- NOTE | 2025-04-07 12:04 | XR_ITS ---
Examination: CT brain head without contrast. 2-D sagittal coronal reconstructions Date and time of exam:April 07, T2 thousand 25, 12:50 PM Indications: Seizure today CTDI: vol (mGy):52 DLP: (mGycm): 1103 Technique: Multiple CT axial sections of the brain have been obtained, 5 mm slice thickness. Contrast has not been administered. 2-D sagittal, coronal reconstructions have been obtained Low dose protocols were performed. One or more of the following dose reduction techniques were used; automated exposure control, adjustment of the mA and/or KV according to patient size, use of iterative reconstruction technique. Findings: No significant ventricular enlargement. Intra-axial or extra-axial hemorrhage density is not seen. No mass effect or midline shift Basal cisterns are not remarkable. Fourth ventricle is midline. Cranial vault intact. Impression: Negative for acute hemorrhage, mass effect or midline shift Advise clinical correlation and follow-up accordingly
[2025-04-07] MEDS: MIDAZOLAM INJ 1 MG/ML VIAL 2 ML 4 MG IVP (12:06)
--- NOTE | 2025-04-07 12:11 | PC.NURSE ---
patient noted to have a tonic clonic seizure, patient assisted to left side , placed on oxygen and md notified
[2025-04-07 12:20] LABS: Basophils # (Auto) 0.0 Thou/mm3 (0.0-0.2); Basophils % (Auto) 1 % (0-2.5); Eosinophils # (Auto) 0.3 Thou/mm3 (0.0-0.5); Eosinophils % (Auto) 7 % (0-10); Hematocrit 42.6 % (41.0-53.0); Hemoglobin 14.3 g/dL (13.5-16.0); Immature Granulocytes Auto 0.03 Thou/mm3 (0.00-0.00); Lymphocytes # (Auto) 0.8 Thou/mm3 (1.0-4.8); Lymphocytes % (Auto) 15 % (10-50); Mean Corpuscular HGB Conc 33.6 g/dl (31.0-37.0); Mean Corpuscular Hemoglobin 31.0 pg (25.0-35.0); Mean Corpuscular Volume 92 fL (80-100); Monocytes # (Auto) 0.5 Thou/mm3 (0.0-0.8); Monocytes % (Auto) 11 % (0-12); Neutrophils # (Auto) 3.4 Thou/mm3 (1.8-7.7); Neutrophils % (Auto) 67 % (37-80); Nucleated Red Blood Cell # 0.00 Thou/mm3 (0.00-0.00); Nucleated Red Blood Cell % 0 /100 WBC (0); Platelet Count 168 Thou/mm3 (140-440); RDW Standard Deviation 38.4 fL (35.1-43.9); Red Blood Count 4.61 Miln/mm3 (4.50-5.90); White Blood Count 5.0 Thou/mm3 (3.8-10.6)
[2025-04-07 12:26] LABS: INR 1.1 (0.9-1.3); Prothrombin Time 12.2 Seconds (9.0-12.2)
[2025-04-07] MEDS: levETIRAcetam INJ 100 MG/ML VIAL 5ML 1000 MG IVP ×2 (12:29→20:53)
[2025-04-07] MEDS: CEFEPIME INJ 2 GM in SODIUM CHLORIDE 0.9% (Popper) 50 ML IV (12:36)
[2025-04-07] MEDS: VANCOMYCIN/NS 1 GM IVPB 200 ML IV (12:37)
[2025-04-07 12:39] LABS: Alanine Aminotransferase 19 U/L (10-49); Albumin, Serum 4.0 gm/dL (3.5-5.0); Albumin/Globulin Ratio 1.7 (1.2-2.2); Alkaline Phosphatase 45 U/L (46-116); Anion Gap 11 (7-16); Aspartate Amino Transferase 26 U/L (0-34); BUN/Creatinine Ratio 10 Ratio (12-20); Bilirubin,Total 0.7 mg/dL (0.3-1.2); Blood Urea Nitrogen 11 mg/dL (9-23); Calcium 9.6 mg/dL (8.3-10.6); Calcium (Corrected) 9.6 mg/dL (8.5-10.1); Carbon Dioxide 27.4 mMol/L (20.0-31.0); Chloride 106 mMol/L (98-107); Creatinine (Component) 1.1 mg/dL (0.6-1.3); Estimated Creatinine Clearance 104.5 mL/min (>60); Globulin 2.4 gm/dL (2.3-3.5); Glucose 74 mg/dL (74-106); Osmolality,Calculated 285 (275-295); Potassium 4.4 mMol/L (3.4-5.1); Sodium 144 mMol/L (136-145); Total Protein 6.4 gm/dL (5.7-8.2); eGFR > 60 See Note
--- NOTE | 2025-04-07 14:10 | XR_ITS ---
Examination: AP chest single view Technique one AP portable supine chest single view Date and time: April 07, thousand 25, 1456 hrs., Comparison 04/07/2025. Indications: Hypoxia today. Findings: Bilateral perihilar pneumonia. Normal heart size. The osseous structures are intact. Impression: Bilateral perihilar pneumonia, consider aspiration pneumonia
[2025-04-07 15:12] LABS: Lactate (Lactic Acid) 1.0 mMol/L (0.4-2.0)
[2025-04-07 15:16] LABS: Basophils # (Auto) 0.0 Thou/mm3 (0.0-0.2); Basophils % (Auto) 0 % (0-2.5); Eosinophils # (Auto) 0.1 Thou/mm3 (0.0-0.5); Eosinophils % (Auto) 1 % (0-10); Hematocrit 42.9 % (41.0-53.0); Hemoglobin 14.3 g/dL (13.5-16.0); Immature Granulocytes Auto 0.03 Thou/mm3 (0.00-0.00); Lymphocytes # (Auto) 0.5 Thou/mm3 (1.0-4.8); Lymphocytes % (Auto) 5 % (10-50); Mean Corpuscular HGB Conc 33.3 g/dl (31.0-37.0); Mean Corpuscular Hemoglobin 30.7 pg (25.0-35.0); Mean Corpuscular Volume 92 fL (80-100); Monocytes # (Auto) 0.7 Thou/mm3 (0.0-0.8); Monocytes % (Auto) 7 % (0-12); Neutrophils # (Auto) 8.9 Thou/mm3 (1.8-7.7); Neutrophils % (Auto) 88 % (37-80); Nucleated Red Blood Cell # 0.00 Thou/mm3 (0.00-0.00); Nucleated Red Blood Cell % 0 /100 WBC (0); Platelet Count 147 Thou/mm3 (140-440); RDW Standard Deviation 38.2 fL (35.1-43.9); Red Blood Count 4.66 Miln/mm3 (4.50-5.90); White Blood Count 10.2 Thou/mm3 (3.8-10.6)
[2025-04-07] MEDS: AMPICILLIN/SULBAC INJ 1.5 GM in SODIUM CHLORIDE 0.9% (Popper) 50 ML IV ×3 (15:37→23:22)
[2025-04-07 16:18] LABS: Alanine Aminotransferase 18 U/L (10-49); Albumin, Serum 3.8 gm/dL (3.5-5.0); Albumin/Globulin Ratio 1.7 (1.2-2.2); Alkaline Phosphatase 43 U/L (46-116); Anion Gap 8 (7-16); Aspartate Amino Transferase 29 U/L (0-34); BUN/Creatinine Ratio 18 Ratio (12-20); Bilirubin,Total 0.8 mg/dL (0.3-1.2); Blood Urea Nitrogen 18 mg/dL (9-23); Calcium 9.3 mg/dL (8.3-10.6); Calcium (Corrected) 9.5 mg/dL (8.5-10.1); Carbon Dioxide 27.0 mMol/L (20.0-31.0); Chloride 106 mMol/L (98-107); Creatinine (Component) 1.0 mg/dL (0.6-1.3); Estimated Creatinine Clearance 114.9 mL/min (>60); Globulin 2.3 gm/dL (2.3-3.5); Glucose 80 mg/dL (74-106); Osmolality,Calculated 282 (275-295); Potassium 4.2 mMol/L (3.4-5.1); Sodium 141 mMol/L (136-145); Total Protein 6.1 gm/dL (5.7-8.2); Troponin I < 0.002 ng/mL (0.0-0.045); eGFR > 60 See Note
--- NOTE | 2025-04-07 16:37 | PC.NURSE ---
CALLED DR. ANDREW TO INFORM HIM PATIENT WANTS TO GO HOME. PATIENT DOES NOT WANT TO BE ADMITTED TO THE HOSPITAL. PATIENT IS ALERT AND ORIENTED X4. VITALS ARE STABLE.
--- NOTE | 2025-04-07 17:14 | ESHP_ITS ---
<Statement entered by Kimberly Dalton MD - 04/12/25 07:15> I reviewed above note and agree with findings and plans. I have also personally examined the patient with medicine team and went over assessment and plan with medical team including international banker and resident physician. <Statement entered by Demar Diaz MD - 04/08/25 22:16> Note reviewed and agree with care plan as documented. Please refer to the note below for further details. Plan discussed with attending physician Demar Diaz MD PGY-2 Internal Medicine Documentation for date of: 04/07/25 HPI History of Present Illness History of present illness: 24-year-old male with a past medical history of seizure disorder presented to the ED 30 minutes after having a witnessed tonic-clonic seizure by his spouse. Patient is currently on valproic acid. He used to be on Keppra but back in January he was hospitalized for another seizure event and was switched to valproic acid at the time. He has since had 1 more seizure in the middle of March and presented 30 minutes after today's witnessed tonic-clonic seizure. He had another tonic-clonic seizure in the ED after arrival lasting for several minutes. The patient was noted to be hypoxic and had a gurgling sound, there was suspicion for aspiration. ED course: * The patient was given a one-time dose of Keppra 1000 mg, was also given midazolam 4 mg * He was given a one-time dose of cefepime and vancomycin * Vitals on arrival: BP 107/70, pulse 85, respiratory rate 18, temperature 98.2, O2 sat 95% on 15 L oxygen mask. * Imaging: Initial chest x-ray was negative, repeat chest x-ray status post tonic-clonic seizure in the ED showed bilateral perihilar pneumonia. CT of the head was negative for any acute hemorrhage mass effect or midline shift. EKG showed a sinus rhythm with a rate of [address] segment changes. * There were no pertinent labs given the patient's condition. Past medical history: * Seizure disorder Surgical history * No surgical history Family history: * Extensive history of seizure disorder on the patient's maternal side Social history: * Patient smokes marijuana daily, no alcohol or tobacco use Allergies: * No known drug allergies Medications: * Depakote 500 mg twice daily Review of Systems Review of Systems Narrative Review of Systems: Review of Systems: Source of review of systems is the patient's spouse * General: Denies fevers, chills. * HEENT: Denies headache, congestion, or sore throat. * Cardiac: Denies chest pain or palpitations. * Pulmonary: Denies shortness of breath or cough. * GI: Denies nausea, vomiting, diarrhea, constipation, melena, or hematochezia. * : Denies dysuria, hematuria, frequency, or urgency. * MSK: Denies pain in the extremities, joints, or myalgias. * Neuro: Generalized tonic-clonic seizure an hour and a half before arrival, tongue biting, denies loss of control of bladder or bowels during event. Exam Vital Signs Temp Pulse Resp BP Pulse Ox O2 Del Method O2 Flow Rate 99.2 F 78 19 109/58 L 98 Nasal Cannula 2 04/07/25 15:42 04/07/25 15:42 04/07/25 15:42 04/07/25 15:42 04/07/25 15:43 04/07/25 15:42 04/07/25 15:43 Narrative Exam General: Somnolent, does not respond to voice, responds to shaking/physical stimulation. Neurologic: GCS 13. Oriented to place and time, no gross neurological deficit, and patient able to move all 4 extremities. HEENT: Normocephalic, atraumatic, mucous membranes moist. Pupils reactive to light. Heart: Regular rate and rhythm, normal S1 and S2, no murmurs. Lungs: Clear to auscultation bilaterally with no wheezing or crackles. Abdomen: Soft, nondistended, nontender, positive bowel sounds. No guarding or rebound tenderness. Extremities: No edema. 2+ radial and dorsalis pedis pulses bilaterally. Skin: Warm. Dry. No rash or ecchymoses. Results: Labs 04/07/25 15:06 04/07/25 15:06 Labs: Short CBC 04/07/25 04/07/25 Range/Units 12:02 15:06 WBC 5.0 10.2 D (3.8-10.6) Thou/mm3 Hgb 14.3 14.3 (13.5-16.0) g/dL Hct 42.6 42.9 (41.0-53.0) % Plt Count 168 147 (140-440) Thou/mm3 BMP 04/07/25 04/07/25 12:02 15:06 Sodium 144 141 Potassium 4.4 4.2 Chloride 106 106 Carbon Dioxide 27.4 27.0 BUN 11 18 Creatinine 1.1 1.0 Glucose 74 80 Calcium 9.6 9.3 Cardiac Enzymes 04/07/25 Range/Units 15:06 Troponin I < 0.002 (0.0-0.045) ng/mL Liver Function 04/07/25 04/07/25 Range/Units 12:02 15:06 Total Bilirubin 0.7 0.8 (0.3-1.2) mg/dL AST 26 29 (0-34) U/L ALT 19 18 (10-49) U/L Alkaline Phosphatase 45 L 43 L (46-116) U/L Albumin 4.0 3.8 (3.5-5.0) gm/dL Quality Measures Quality Measures none Medications Home Medications and Allergies Allergies Allergy/AdvReac Type Severity Reaction Status Date / Time No Known Allergies Allergy Verified 04/07/25 11:24 Visit Medications Acetaminophen (Acetaminophen 325 Mg Tablet) 650 mg PO Q6H PRN PRN Reason: Fever >101.5 Stop: 05/07/25 14:46 Ampicillin Sodium/Sulbactam (Sodium 1.5 gm/ Sodium Chloride) 50 mls @ 100 mls/hr IV Q6HR MIRACLE Stop: 04/14/25 00:00 Levetiracetam (Levetiracetam Inj 100 Mg/Ml Vial 5ml) 1,000 mg IVP BID M[place]LE Stop: 05/07/25 20:59 Lorazepam (Lorazepam 0.5 Mg Tablet) 2 mg PO Q5MIN PRN PRN Reason: SEIZURES Stop: 04/12/25 16:18 Ondansetron HCl (Ondansetron Inj 2 Mg/Ml Inj 2 Ml) 4 mg IVP Q6H PRN; Protocol PRN Reason: NAUSEA OR VOMITING Stop: 05/07/25 14:46 Pantoprazole Sodium (Pantoprazole Inj 40 Mg Vial) 40 mg IVP Q12HR M[place]LE Stop: 05/07/25 20:59 Discontinued Medications Lactated Ringer's (Lactated Ringers) 1,000 mls @ 999 mls/hr IV .Q1H1M ONE Stop: 04/07/25 12:41 Last Infusion: 04/07/25 12:52 Dose: Infused Vancomycin/Sodium Chloride (Vancomycin/Ns 1 Gm Ivpb) 200 mls @ 120 mls/hr IV X1 ONE Stop: 04/07/25 14:03 Last Infusion: 04/07/25 14:18 Dose: Infused Cefepime HCl 2 gm/ Sodium (Chloride) 50 mls @ 100 mls/hr IV X1 ONE Stop: 04/07/25 12:54 Last Infusion: 04/07/25 13:06 Dose: Infused Ampicillin Sodium/Sulbactam (Sodium 1.5 gm/ Sodium Chloride) 50 mls @ 100 mls/hr IV X1 ONE Stop: 04/07/25 15:59 Last Infusion: 04/07/25 16:07 Dose: Infused Levetiracetam (Levetiracetam Inj 100 Mg/Ml Vial 5ml) 1,000 mg IVP X1 ONE Stop: 04/07/25 12:23 Last Admin: 04/07/25 12:29 Dose: 1,000 mg Lorazepam (Lorazepam 0.5 Mg Tablet) 2 mg PO X1 PRN PRN Reason: SEIZURES Stop: 04/10/25 15:02 Midazolam HCl (Midazolam Inj 1 Mg/Ml Vial 2 Ml) 4 mg IVP X1 ONE Stop: 04/07/25 12:04 Last Admin: 04/07/25 12:06 Dose: 4 mg Assessment & Plan Plan 24-year-old male with a past medical history of seizure disorder presenting after a witnessed tonic-clonic seizure. He experienced another tonic-clonic seizure episode in the ED. He was given 1000 mg of Keppra and 4 mg of midazolam and admitted for monitoring of his seizures. Upon admission his mentation had improved immensely. #Tonic-clonic seizure #Seizure disorder * The patient was taking Keppra until January when he was switched to Depakote after experiencing a seizure that led to hospitalization during that time * The patient had another seizure in March that did not lead to hospitalization * The patient has had a total of 2 seizures the day of presentation * Patient's spouse mentions that she is unsure of the patient's compliance with his home Depakote medication Plan: * Seizure precautions * Follow-up valproic acid level * Neurochecks every 4 hours * Will start patient on Keppra 1000 mg twice daily * Ativan 2 mg, followed by 4mg, followed by 6mg, up to 8 mg as needed ordered for refractory seizures every 3 to 5 minutes this should a seizure occur * Neurology consulted, recommends 24-hour seizure watch, patient can discharge after 24 hours of no seizure-like activity #Aspiration pneumonia * There was suspicion for aspiration pneumonia evidenced on chest x-ray status post tonic-clonic seizure in the emergency department * Patient was given a one-time dose of 2 g cefepime and 1 GM vancomycin in the ED * The patient denies shortness of breath and lungs are clear on exam * He was weaned to room air Plan: * Unasyn 1.5 gm Q6 * Consider follow-up chest x-ray if patient becomes short of breath Hospital Maintenance: DVT ppx: SCDs GI ppx: Pantoprazole every 12 hours IV lines: Peripheral IV [place]: None Code status: Full code Dispo: Will be admitted for 24-hour seizure watch. Patient was seen and discussed with my attending physician Dr. Krystle MCCLAIN and my senior resident Dr. Emily MCCLAIN PGY-2. Frank Day DO PGY-1.
[2025-04-07] MEDS: ONDANSETRON INJ 2 MG/ML INJ 2 ML 4 MG IVP (17:21)
--- NOTE | 2025-04-07 17:31 | PC.NURSE ---
REPORT CALLED TO PIEDAD LEMOS. PATIENT WILL BE TAKEN UPSTAIRS AND ADMITTED TO [facility].
--- NOTE | 2025-04-07 17:46 | PC.NURSE ---
patient arrived aaox3. patient refusing gown.
[2025-04-07 17:48] LABS: Collection Type, Urine Clean Catch; Squamous Epithelial Cell,Urine 0 /hpf (0-5)
[2025-04-07 17:51] LABS: Bilirubin,Urine Negative (Negative); Blood,Urine Negative (Negative); Clarity,Urine Clear (Clear/Hazy); Color,Urine Yellow (Lt Yel-Yel); Culture Indicated,Urine Not Indicated; Glucose, Urine Negative (Negative); Ketones,Urine 2+ (Negative); Leukocyte Esterase,Urine Negative (Negative); Nitrite,Urine Negative (Negative); PH,Urine 6.0 (5.0-7.0); Protein,Urine Trace (Neg - Trace); RBC,Urine 2 /hpf (0-3); Specific Gravity,Urine 1.035 (1.001-1.035); Urobilinogen,Urine Negative mg/dL (0.0-1.0); WBC,Urine 5 /hpf (0-5)
--- NOTE | 2025-04-07 17:53 | PC.CC ---
Bartolome Hahn is a 24-year-old male admitted for Seizures. Milieu Coordinator attempted to make contact with Pt at bedside to complete initial and discuss discharge disposition but was unable to do so due to Pt not being responsive. Milieu Coordinator contacted Pt mother identified on Pt face sheet Mother Cristel Lopez [phone]. Role and reason for the contact was explained. Demographic information was verified.Pt cellphone number identified as [phone]. Mother identified self Mother Cristel Lopez [phone] and family member Laurie Trinh [phone] as his surrogate decision maker. Pt is independent with all ADLs. Pt does not utilize DME. Pt?s choice of pharmacy is [facility] [place], [place]. PCP is Jerome Wood. Discharge Plan: Home with family member Laurie Trinh [phone] Next of Kin: Mother Cristel Lopez [phone] and family member Laurie Trinh [phone] PCP: Jerome Wood
--- NOTE | 2025-04-07 23:50 | PD.NEUROPROG ---
Documentation for date of: 04/07/25 Subjective Subjective Interval history: [facility], No seizures reported after admission. Patient has stated that the Keppra does not work and has worsening seizures after being on it and is causing mood changes last visit and had to switch to Depakote when he got discharged. Exam - Neurology Vital Signs Temp Pulse Resp BP Pulse Ox O2 Del Method O2 Flow Rate 97.7 F 77 16 115/69 91 L Room Air 2 04/07/25 20:00 04/07/25 20:00 04/07/25 20:00 04/07/25 20:00 04/07/25 20:00 04/07/25 20:00 04/07/25 15:43 Narrative Exam GENERAL APPEARANCE: Well hydrated, well-nourished in no acute distress. HEENT: Normocephalic, atraumatic, extraocular movements intact. Pupils: Equal reacting to light and accommodation NECK: Supple, no JVD or bruits. CARDIOVASULAR: Heart: S1, S2 heard, regular without S3-S4 or murmur no rubs or gallops. LUNGS/CHEST: Clear to auscultation bilaterally. No rails, rhonchi, or wheezing. Normal inspection. ABDOMEN: Soft, nontender, with normal bowel sounds. No pulsatile masses. No rebound, rigidity, or guarding. Normal inspection and palpation. EXTREMITIES: Normal inspection and palpation. No edema, clubbing or cyanosis. SKIN: Warm and dry without rashes. Normal inspection. MUSCULOSKELETAL: No cervical, thoracic, lumbar or midline bony tenderness. Normal inspection. NEURO: Alert, awake and oriented x3. Cranial nerves: II through XII grossly intact. Speech and language: Normal with no dysarthria or dysphasia. Motor system: Tone and bulk: Normal: Strength: 5 out of 5 in all 4 extremities; No pronator drift noted. Deep tendon reflexes: 2+ bilaterally symmetrical. Plantar reflex: Downgoing bilaterally. Sensory system: Intact to all modalities of sensation bilaterally. Coordination: Intact to rcistf-kyhe-aixua and bkpi-[id number] test bilaterally. No ataxia, no dysmetria, or dysdiadochokinesia noted. No intention tremors noted. Gait: Normal. Toe, heel, tandem walk all are normal. Romberg: Negative. No signs of meningeal irritation noted. PSYCHIATRIC: Normal mood and affect. Objective Labs 04/08/25 04:42 04/08/25 04:42 Labs: Laboratory Results - last 24 hr 04/07/25 04/07/25 04/07/25 12:02 15:06 17:20 WBC 5.0 10.2 D RBC 4.61 4.66 Hgb 14.3 14.3 Hct 42.6 42.9 MCV 92 92 MCH 31.0 30.7 MCHC 33.6 33.3 RDW Std Deviation 38.4 38.2 Plt Count 168 147 Neut % (Auto) 67 88 H Lymph % (Auto) 15 5 L [place] % (Auto) 11 7 Eos % (Auto) 7 1 Baso % (Auto) 1 0 Neut # (Auto) 3.4 8.9 H Lymph # (Auto) 0.8 L 0.5 L [place] # (Auto) 0.5 0.7 Eos # (Auto) 0.3 0.1 Baso # (Auto) 0.0 0.0 Immature Gran # (Auto) 0.03 H 0.03 H Absolute Nucleated RBC 0.00 0.00 Immature Gran % 1 H 0 Nucleated RBC % 0 0 PT 12.2 INR 1.1 Sodium 144 141 Potassium 4.4 4.2 Chloride 106 106 Carbon Dioxide 27.4 27.0 Anion Gap 11 8 BUN 11 18 Creatinine 1.1 1.0 Estim Creat Clear Calc 104.5 114.9 eGFR > 60 > 60 BUN/Creatinine Ratio 10 L 18 Glucose 74 80 Calculated Osmolality 285 282 Lactic Acid 1.0 Calcium 9.6 9.3 Corrected Calcium 9.6 9.5 Total Bilirubin 0.7 0.8 AST 26 29 ALT 19 18 Alkaline Phosphatase 45 L 43 L Troponin I < 0.002 Total Protein 6.4 6.1 Albumin 4.0 3.8 Globulin 2.4 2.3 Albumin/Globulin Ratio 1.7 1.7 Ur Collection Type Clean Catch Urine Color Yellow Urine Clarity Clear Urine pH 6.0 Ur Specific [place] 1.035 Urine Protein Trace Urine Glucose (UA) Negative Urine Ketones 2+ A Urine Blood Negative Urine Nitrite Negative Urine Bilirubin Negative Urine Urobilinogen (Auto) Negative Ur Leukocyte Esterase Negative Urine RBC 2 Urine WBC 5 Ur Squamous Epith Cells 0 Urine Bacteria None Ur Culture Indicated? Not Indicated Assessment & Plan Assessment and plan (1) Seizure disorder: Status: Acute Assessment and plan: will keep him under observation to make sure that there is no recurrence for at least 24 hours. Discontinue Keppra because of the side effects in the past and go back to Depakote 1000 mg twice a day. Will add Vimpat 50 mg bid for additional control and will plan to tritrate as needed upon outpatient follow up when he gets the referral from [facility]. No driving/sz triggers. Follow sz precautions. (2) Aspiration pneumonia: Status: Acute Assessment and plan: treated with antibiotics
[2025-04-08] VITALS: BP 110/56; PULSE 77; PULSE 81; RESP 13; TEMP 36.2; O2SAT 93
--- NOTE | 2025-04-08 00:51 | PC.NURSE ---
Pt said that someone said he only stays for 24 hrs and asking to go home at this time, I told him he just came to the floor in the afternoon but he said he's been here since morning yesterday, I explained to him that he needs to wait for the discharge order for him to get his meds to go home. He said he will go home tomorrow at 6am and I explained he can go home but he needs sign AMA as he is alert and oriented x4.
[2025-04-08 04:00] VITALS: BP 106/50; PULSE 62; PULSE 69; RESP 15; TEMP 37.1; O2SAT 92
[2025-04-08 04:09] VITALS: PULSE 78; RESP 18; RESP 95
[2025-04-08] MEDS: AMPICILLIN/SULBAC INJ 1.5 GM in SODIUM CHLORIDE 0.9% (Popper) 50 ML IV (05:03)
--- NOTE | 2025-04-08 05:11 | PC.NURSE ---
MD Hobbs made aware that pts wants the doctor to come and discharge him early as he keeps saying that he only stay in the hospital for 24 hrs, I explained to him that his 24 hrs is not until noon time. He wants his IV to be remove, I explained to him that he has IV meds that need to administer in the morning. MD Hobbs will come and talk to the pts.
--- NOTE | 2025-04-08 05:14 | PC.NURSE ---
MD Hobbs here and talking to the pts, explaining why he is here in the hospital.
[2025-04-08 06:09] LABS: Basophils # (Auto) 0.0 Thou/mm3 (0.0-0.2); Basophils % (Auto) 0 % (0-2.5); Eosinophils # (Auto) 0.2 Thou/mm3 (0.0-0.5); Eosinophils % (Auto) 1 % (0-10); Hematocrit 42.7 % (41.0-53.0); Hemoglobin 14.1 g/dL (13.5-16.0); Immature Granulocytes Auto 0.03 Thou/mm3 (0.00-0.00); Lymphocytes # (Auto) 0.9 Thou/mm3 (1.0-4.8); Lymphocytes % (Auto) 8 % (10-50); Mean Corpuscular HGB Conc 33.0 g/dl (31.0-37.0); Mean Corpuscular Hemoglobin 30.5 pg (25.0-35.0); Mean Corpuscular Volume 92 fL (80-100); Monocytes # (Auto) 0.7 Thou/mm3 (0.0-0.8); Monocytes % (Auto) 7 % (0-12); Neutrophils # (Auto) 9.4 Thou/mm3 (1.8-7.7); Neutrophils % (Auto) 83 % (37-80); Nucleated Red Blood Cell # 0.00 Thou/mm3 (0.00-0.00); Nucleated Red Blood Cell % 0 /100 WBC (0); Platelet Count 180 Thou/mm3 (140-440); RDW Standard Deviation 38.1 fL (35.1-43.9); Red Blood Count 4.63 Miln/mm3 (4.50-5.90); White Blood Count 11.3 Thou/mm3 (3.8-10.6)
--- NOTE | 2025-04-08 06:14 | PC.NURSE ---
Pt took off his cardiac cath technician, MD Cortez made aware. Pt wants to go home but he doesnt want to sign the AMA paper.
[2025-04-08 06:33] LABS: Alanine Aminotransferase 17 U/L (10-49); Albumin, Serum 3.8 gm/dL (3.5-5.0); Albumin/Globulin Ratio 1.4 (1.2-2.2); Alkaline Phosphatase 44 U/L (46-116); Anion Gap 12 (7-16); Aspartate Amino Transferase 14 U/L (0-34); BUN/Creatinine Ratio 11 Ratio (12-20); Bilirubin,Total 1.1 mg/dL (0.3-1.2); Blood Urea Nitrogen 11 mg/dL (9-23); Calcium 9.0 mg/dL (8.3-10.6); Calcium (Corrected) 9.2 mg/dL (8.5-10.1); Carbon Dioxide 27.5 mMol/L (20.0-31.0); Chloride 101 mMol/L (98-107); Creatinine (Component) 1.0 mg/dL (0.6-1.3); Estimated Creatinine Clearance 125.7 mL/min (>60); Globulin 2.8 gm/dL (2.3-3.5); Glucose 74 mg/dL (74-106); Magnesium 1.9 mg/dL (1.6-2.6); Osmolality,Calculated 277 (275-295); Phosphorous 2.7 mg/dL (2.4-5.1); Potassium 3.4 mMol/L (3.4-5.1); Sodium 140 mMol/L (136-145); Total Protein 6.6 gm/dL (5.7-8.2); eGFR > 60 See Note
--- NOTE | 2025-04-08 07:55 | EVENTNT_ITS ---
<Statement entered by Kimberly Dalton MD - 04/12/25 14:17> I reviewed above note and agree with findings and plans. I have also personally examined the patient with medicine team and went over assessment and plan with medical team including equine intern and resident physician. Documentation for date of: 04/08/25 Event Note Event Note: Mr Hahn is a 24 year old male admitted for breakthrough seizures due to poor compliance with medications. Neurology was consulted in house and recommended addition of Vimpat 50mg BID to Divalproex 1g BID. Patient decided to leave AMA around 10 am this morning on 04/08/2025 He was counseled extensively, showed full comprehension of the risk involved but decided to proceed with AMA nevertheless. He refused to sign AMA documentation. Plan of care discussed with attending Dr Ortiz, - Kraig Méndez M.D. PGY3 Disclaimer: Minor errors in rubber thread spooler may be present as this note was dictated using voice recognition software.
--- NOTE | 2025-04-08 08:08 | PC.NURSE ---
Patient going AMA Dr. Méndez notified
[2025-04-08] MEDS: LACOSAMIDE 50 MG TABLET PO (08:16)
[2025-04-08] MEDS: DIVALPROEX SOD DR 500 MG TABLET.DR 1000 MG PO (08:16)
--- NOTE | 2025-04-08 09:11 | PC.NURSE ---
Patient will not sign AMA papers. Girlfriend called and they started arguing over the phone. Patient decided to stay. He keeps on walking out into the hallway. I told patient to please return back to room he cant be out in the hallways. Patient being loud and using inappropriate words. I asked patient to please lower his voice. Carlos is wrapping his IVs and he is going to shower.
[2025-04-08 10:02] VITALS: PULSE 77; RESP 18; RESP 97
--- NOTE | 2025-04-08 10:18 | PC.NURSE ---
Patient asked to speak with the doctor. I notified Dr. Méndez.
--- NOTE | 2025-04-08 10:46 | PC.NURSE ---
Notified Dr. Méndez patient is signing papers going AMA
[2025-04-13 07:16] LABS: Valporic Acid (Depak)* 42.2 mg/L (50.0-100.0)
== END 2025-04-08 10:55 | disposition left against medical advice (07) | DRG 53 ==
LOC: SERX 14:18 → SERHOLD 15:42 → S3NX 17:41
PROVIDERS: Nurse Practitioner Family; Admitting Provider Internal Medicine; Emergency Provider Emergency Medicine; PCP Family Medicine; Visit Provider Internal Medicine
DX: R56.9 Unspecified convulsions (principal); J69.0 Pneumonitis due to inhalation of food and vomit; Z91.148 Patient's other noncompliance with medication regimen for other reason; Z53.29 Procedure and treatment not carried out because of patient's decision for other reasons; Z79.899 Other long term (current) drug therapy
CPT/HCPCS: 36415; 70450; 71045; 80053; 80164; 81001; 83605; 83735; 84100; 84484; 85025; 85610; 87811; 93005; 93225; 96361; 96365; 96366; 96374; 96375; 96376; 99284; J0295; J0692; J1953; J2250; J2405; J2470; J3373; J7050; J7120; A9270

== ENCOUNTER 2025-05-05 09:51 | Emergency (ER) | payer MEDICAID, SELFPAY ==
--- NOTE | 2025-05-05 10:00 | PD.EDSEIZ ---
ED Seizures RME/HPI General Chief Complaint: Seizure Stated Complaint: seizure Time Seen by Provider: 05/05/25 10:14 Arrival date/time: 05/05/25 09:51 Limitations: no limitations RME / HPI RME / HPI Narrative: DR. AMBRIZ MAIN ED EVALUATION: 24-year-old male with a history of seizures, currently on Depakote 1000 mg and Vimpat 50 mg daily, presents to the Emergency Department BIBA after a seizure lasting approximately 2 minutes, occurring 25 minutes prior to arrival. Patient was going to the restroom, which is usually how he feels prior to getting a seizure; during the seizure event, he struck the back of his head. Denied any neck pain. Blood glucose per EMS was 118. He reports last taking his seizure medications last night but has not yet taken his morning doses today. Patient ran out of his medications. Denies headache, neck pain, chest pain, abdominal pain, pain in his extremities. Denies drugs alcohol smoking. Related Data Previous Rx's ?Medication ?Instructions ?Recorded divalproex 500 mg tablet,delayed 1,000 mg (2 x 500 mg) PO BID #90 04/08/25 release tabs lacosamide 50 mg tablet 50 mg PO BID #30 tabs 04/08/25 divalproex 500 mg tablet,delayed 1,000 mg (2 x 500 mg) PO Q12H #60 05/05/25 release (Depakote) tabs lacosamide 50 mg tablet (Vimpat) 50 mg PO DAILY #30 tabs 05/05/25 Allergies Allergy/AdvReac Type Severity Reaction Status Date / Time No Known Allergies Allergy Verified 04/07/25 11:24 Review of Systems Review of Systems Systems Reviewed: All systems reviewed, normal except as documented Past Medical History Past Medical History NEUROLOGIC: Positive Seizures Social History SMOKING STATUS: Never smoker SUBSTANCE USE: does not use ALCOHOL: Never ED Exam General Limitations: Present no limitations General appearance: Present alert and in no apparent distress Head Head exam: Present atraumatic, normocephalic and normal inspection Eye Eye exam: Present normal appearance, PERRL and EOMI ENT ENT exam: Present normal exam, normal oropharynx and mucous membranes moist Neck Neck exam: Present normal inspection, full ROM and trachea midline Chest Chest inspection: Present normal inspection and symmetric chest wall rise Respiratory Respiratory exam: Present normal lung sounds bilaterally; Absent respiratory distress Cardiovascular Cardiovascular exam: Present regular rate, normal rhythm and normal heart sounds Abdominal Exam Abdominal exam: Present soft; Absent distention, tenderness, guarding or rebound Extremities Exam Extremities exam: Present normal inspection and full ROM Back Exam Back exam: Present normal inspection and full ROM Neurological Exam Neurological exam: Present alert, oriented X3 and CN II-XII intact Psychiatric Psychiatric exam: Present normal affect and normal mood Skin Skin exam: Present warm, dry, intact and normal color Course Quality Measures none Orders Category Date Time Status CT head/brain wo con Stat Exams 05/05/25 10:00 Completed CBC Stat Lab 05/05/25 10:12 Completed CMP [Comprehensive Metabolic Panel] Stat Lab 05/05/25 10:12 Completed Drug Screen,Urine Stat Lab 05/05/25 10:33 Completed PT [Prothrombin Time with INR] Stat Lab 05/05/25 10:12 Completed UA, C/S IF [Urinalysis, C/S if Indicated] Stat Lab 05/05/25 10:[address] [Depcl Khan] Med 05/05/25 10:07 Discontinued 1,000 mg PO X1 ONE Lacosamide Ivp [Vimpat IVP] Med 05/05/25 10:00 Discontinued 50 mg IVP X1 ONE levETIRAcetam INJ [Keppra Inj] Med 05/05/25 10:00 Discontinued 1,000 mg IVP X1 ONE Vital Signs Vital signs: Vital Signs Temperature 97.8 F 05/05/25 10:01 Pulse Rate 81 05/05/25 10:01 Respiratory Rate 24 H 05/05/25 10:01 Blood Pressure 121/78 05/05/25 10:01 Pulse Oximetry (%) 97 05/05/25 10:01 Oxygen Delivery Method Room Air 05/05/25 10:01 Seizure MDM Narrative MDM Narrative:: Patient is a 24-year-old male with medical history notable for epilepsy that send Emergency Department with concerns for having had a breakthrough seizure. Vital signs and exam as listed. Concern for medication noncompliance, breakthrough seizure, metabolic disturbance. Patient did his head however does not endorse any head pain. Concern for acute injury to the cranium. Ordered labs, patient's seizure medications as well as CT brain. Labs without acute hematologic or significant metabolic disturbance. Urinalysis without evidence of infection. Drug screen is positive for marijuana. Head CT without any acute intracranial abnormalities. On multiple reevaluations patient hemodynamically stable not distressed will discharge to home and close return precautions follow-up with his primary care doctor as well as his neurologist. Patient's home medications were prescribed. I, Larissa Whitlock am scribing for and in the presence of Dr. Ambriz. Patient data External records reviewed:: [facility] previous records and EMS form Clinical information provided by:: patient and EMS Social determinants that could affect healthcare access:: none Patient has the following chronic illnesses:: Seizures on Depakote 1000 mg and Vimpat 50 mg daily. How is presenting disease/condition affected by chronic disease/condition?: caused by Evaluation data The following diagnostics were reviewed and interpreted by me:: lab results and radiology exam(s) Lab and/or radiology exams considered but not ordered:: none Interpretation Summary: See MDM narrative above. RADIOLOGY Procedure(s): CT head/brain wo [facility] Accession Number(s): [id number] cc: Jerome Wood MD; Sin Cabrera MD; Seema Ambriz MD~ Examination: CT brain head without contrast. 2-D sagittal coronal reconstructions Date and time of exam:May 05, 2025, 10:24 AM Indications: Seizure today, seizures since age 16, head laceration and head pain CTDI: vol (mGy):50.6 DLP: (mGycm):1036 Technique: Multiple CT axial sections of the brain have been obtained, 5 mm slice thickness. Contrast has not been administered. 2-D sagittal, coronal reconstructions have been obtained Low dose protocols were performed. One or more of the following dose reduction techniques were used; automated exposure control, adjustment of the mA and/or KV according to patient size, use of iterative reconstruction technique. Findings: No significant ventricular enlargement. Intra-axial or extra-axial hemorrhage density is not seen. No mass effect or midline shift Basal cisterns are not remarkable. Fourth ventricle is midline. Cranial vault intact. Impression: Negative for acute hemorrhage, mass effect or midline shift Advise clinical correlation follow-up accordingly Dictated By: Sin Cabrera MD Medications / Prescriptions Medications or Prescriptions considered but not ordered:: none Medication administrations:: Medication Administration History Discontinued Medications Divalproex Sodium (Divalproex Sod Dr 500 Mg Tablet.Dr) 1,000 mg PO X1 ONE Stop: 05/05/25 10:08 Last Admin: 05/05/25 10:28 Dose: 1,000 mg Documented By: SALOME Lacosamide (Lacosamide Inj 200 Mg/20 Ml Vial) 50 mg IVP X1 ONE Stop: 05/05/25 10:01 Last Admin: 05/05/25 10:07 Dose: 50 mg Documented By: BY Levetiracetam (Levetiracetam Inj 100 Mg/Ml Vial 5ml) 1,000 mg IVP X1 ONE Stop: 05/05/25 10:01 Last Admin: 05/05/25 10:15 Dose: Not Given Documented By: SALOME Non-Admin Reason: Cancelled by Provider see above if any Consultations Consultation(s) initiated? (list below): No Diagnosis Seizure Differential Diagnosis: other (Breakthrough seizure, traumatic intracranial injury, and medication noncompliance-related seizure.) Most likely diagnosis given after review of the tests above:: break through seizure Admission Indicated Admission indicated?: not indicated Admission Request Was there a request for admission?: No Disposition Plan Disposition Plan: Discharge Discharge Attestation Discharge Attestation: The patient and all family members were given an opportunity to ask questions and understood the discharge instructions. Discharge instructions specifically effects, indications for sooner follow up or return to the emergency department, and the expected course of current diagnosis. Patient condition: Stable Critical Care Time Critical Care Time Critical Care Time: Yes Total Critical Care Time (min.): 36 Attestation: Total critical care time: Approximately?36?minutes Due to a high probability of clinically significant, life threatening deterioration, the patient required my highest level of preparedness to intervene emergently and I personally spent this critical care time directly and personally managing the patient. This critical care time included obtaining a history; examining the patient; pulse oximetry; ordering and review of studies; arranging urgent treatment with development of a management plan; evaluation of patient's response to treatment; frequent reassessment; and, discussions with other providers. This critical care time was performed to assess and manage the high probability of imminent, life-threatening deterioration that could result in multi-organ failure. It was exclusive of separately billable procedures and treating other patients and teaching time. Please see MDM section and the rest of the note for further information on patient assessment and treatment. Discharge Plan Plan Patient Disposition: HOME (Self Care) Prescriptions/Referrals Prescriptions/Med Rec: New lacosamide [Vimpat] 50 mg tablet 50 mg PO DAILY Qty: 30 0RF divalproex [Depakote] 500 mg tablet,delayed release (DR/EC) 1,000 mg PO Q12H Qty: 60 0RF No Action lacosamide 50 mg tablet 50 mg PO BID Qty: 30 2RF divalproex 500 mg Tablet,Delayed Release (Dr/Ec) 1,000 mg PO BID Qty: 90 2RF Problem List Clinical Impression: Seizure Patient/Caregiver Discharge Instructions Education Materials: ED Seizure, Recurrent (Adult) Additional Instructions: Please follow-up with your primary care doctor as well as your neurologist at this week. Please give medications as prescribed. We have prescribed them for you today. Print Language: Estonian Stand Alone Forms: Lucille Award Info., Patient Portal Info Letter
[2025-05-05 10:01] VITALS: BP 121/78; PULSE 81; PULSE 82; RESP 24; TEMP 36.6; O2SAT 97; O2SAT 98
[2025-05-05 10:07] VITALS: BMI 27.7
[2025-05-05] MEDS: LACOSAMIDE INJ 200 MG/20 ML VIAL 50 MG IVP (10:07)
--- NOTE | 2025-05-05 10:11 | PC.NURSE ---
Patient to er via ems from with c/o full body seizure activity witnessed by family, patient fell and hit his head, abrasion noted to left mu-ism and lower inside of lip, small puncture wounds x 2 from teeth. Patient awake, alert and oriented x 3, skin warm dry and pink, New orders received from Dr. Pierce. Patient placed in seizure precautions. Call light within reach,
--- NOTE | 2025-05-05 10:17 | PC.NURSE ---
Patient gone to ct.
[2025-05-05] MEDS: DIVALPROEX SOD DR 500 MG TABLET.DR 1000 MG PO (10:28)
--- NOTE | 2025-05-05 10:30 | PC.NURSE ---
Patient given urinal to obtain urine sample
[2025-05-05 10:36] LABS: Collection Type, Urine Clean Catch; Squamous Epithelial Cell,Urine 0 /hpf (0-5)
[2025-05-05 10:40] LABS: Basophils # (Auto) 0.0 Thou/mm3 (0.0-0.2); Basophils % (Auto) 1 % (0-2.5); Eosinophils # (Auto) 0.4 Thou/mm3 (0.0-0.5); Eosinophils % (Auto) 11 % (0-10); Hematocrit 46.3 % (41.0-53.0); Hemoglobin 15.4 g/dL (13.5-16.0); Immature Granulocytes Auto 0.03 Thou/mm3 (0.00-0.00); Lymphocytes # (Auto) 0.8 Thou/mm3 (1.0-4.8); Lymphocytes % (Auto) 25 % (10-50); Mean Corpuscular HGB Conc 33.3 g/dl (31.0-37.0); Mean Corpuscular Hemoglobin 31.2 pg (25.0-35.0); Mean Corpuscular Volume 94 fL (80-100); Monocytes # (Auto) 0.4 Thou/mm3 (0.0-0.8); Monocytes % (Auto) 12 % (0-12); Neutrophils # (Auto) 1.7 Thou/mm3 (1.8-7.7); Neutrophils % (Auto) 50 % (37-80); Nucleated Red Blood Cell # 0.00 Thou/mm3 (0.00-0.00); Nucleated Red Blood Cell % 0 /100 WBC (0); Platelet Count 162 Thou/mm3 (140-440); RDW Standard Deviation 38.5 fL (35.1-43.9); Red Blood Count 4.93 Miln/mm3 (4.50-5.90); White Blood Count 3.3 Thou/mm3 (3.8-10.6)
[2025-05-05 10:46] LABS: Bilirubin,Urine Negative (Negative); Blood,Urine Negative (Negative); Clarity,Urine Clear (Clear/Hazy); Color,Urine Lt-Yellow (Lt Yel-Yel); Culture Indicated,Urine Not Indicated; Glucose, Urine Negative (Negative); Ketones,Urine 1+ (Negative); Leukocyte Esterase,Urine Negative (Negative); Nitrite,Urine Negative (Negative); PH,Urine 6.0 (5.0-7.0); Protein,Urine 1+ (Neg - Trace); RBC,Urine 3 /hpf (0-3); Specific Gravity,Urine 1.025 (1.001-1.035); Urobilinogen,Urine Negative mg/dL (0.0-1.0); WBC,Urine 1 /hpf (0-5)
[2025-05-05 10:51] LABS: INR 1.1 (0.9-1.3); Prothrombin Time 11.4 Seconds (9.0-12.2)
[2025-05-05 10:57] LABS: Alanine Aminotransferase 18 U/L (10-49); Albumin, Serum 4.4 gm/dL (3.5-5.0); Albumin/Globulin Ratio 1.8 (1.2-2.2); Alkaline Phosphatase 48 U/L (46-116); Anion Gap 14 (7-16); Aspartate Amino Transferase 26 U/L (0-34); BUN/Creatinine Ratio 10 Ratio (12-20); Bilirubin,Total 0.4 mg/dL (0.3-1.2); Blood Urea Nitrogen 13 mg/dL (9-23); Calcium 9.2 mg/dL (8.3-10.6); Calcium (Corrected) 9.2 mg/dL (8.5-10.1); Carbon Dioxide 24.2 mMol/L (20.0-31.0); Chloride 106 mMol/L (98-107); Creatinine (Component) 1.3 mg/dL (0.6-1.3); Estimated Creatinine Clearance 96.1 mL/min (>60); Globulin 2.4 gm/dL (2.3-3.5); Glucose 91 mg/dL (74-106); Osmolality,Calculated 286 (275-295); Potassium 4.7 mMol/L (3.4-5.1); Sodium 144 mMol/L (136-145); Total Protein 6.8 gm/dL (5.7-8.2); eGFR > 60 See Note
[2025-05-05 10:58] LABS: Amphetamine/Methamp Scrn,U Negative (Negative); Barbiturate Screen,Urine Negative (Negative); Benzodiazepines Screen,Urine Negative (Negative); Benzoylecgonine Screen, Ur Negative (Negative); Fentanyl Screen,Urine Negative (Negative); Opiate Screen,Urine Negative (Negative); THC Screen,Urine Positive (Negative)
[2025-05-05 11:35] VITALS: BP 109/65; PULSE 77; RESP 16; O2SAT 98
== END 2025-05-05 11:37 | disposition home or self-care (01) ==
LOC: SERX 10:58
PROVIDERS: Emergency Provider Emergency Medicine; PCP Family Medicine
DX: G40.909 Epilepsy, unspecified, not intractable, without status epilepticus (principal); T42.6X6A Underdosing of other antiepileptic and sedative-hypnotic drugs, initial encounter; Z91.148 Patient's other noncompliance with medication regimen for other reason; Z79.899 Other long term (current) drug therapy
CPT/HCPCS: 36415; 70450; 80053; 80307; 81001; 85025; 85610; 96374; 99284; C9254; A9270

== ENCOUNTER 2025-05-14 14:57 | Inpatient (IN) | payer MEDICAID, SELFPAY ==
[2025-05-14] VITALS (8 sets, daily range): BP systolic 101–142; BP diastolic 66–87; PULSE 78–113; RESP 18–22; TEMP 36.8–37.4; O2SAT 93–100; BMI 24.0
--- NOTE | 2025-05-14 15:02 | XR_ITS ---
Examination: CT brain head without contrast. 2-D sagittal coronal reconstructions Date and time of exam: May 14, 2025, 1532 hours INDICATIONS: Seizures today, patient fell with injury to the head, head pain CTDI: vol (mGy): 55.5 DLP: (mGycm): 1133 Technique: Multiple CT axial sections of the brain have been obtained, 5 mm slice thickness. Contrast has not been administered. 2-D sagittal, coronal reconstructions have been obtained Low dose protocols were performed. One or more of the following dose reduction techniques were used; automated exposure control, adjustment of the mA and/or KV according to patient size, use of iterative reconstruction technique. Findings: No significant ventricular enlargement. Intra-axial or extra-axial hemorrhage density is not seen. No mass effect or midline shift Basal cisterns are not remarkable. Fourth ventricle is midline. Cranial vault intact. Impression: Negative for acute hemorrhage, mass effect or midline shift
--- NOTE | 2025-05-14 15:02 | XR_ITS ---
Examination: CT cervical spine without contrast 2-D sagittal reconstructions 2-D coronal reconstructions 3-D reconstructions. Exam date and time: May 14, 2025, 1532 hours INDICATIONS: Seizures, patient fell today with injury to the neck, neck pain CTDI:vol (mGy) 17.5 DLP: (mGycm) 420 Technique: Multiple 2 mm axial sections of the cervical spine have been obtained. The coronal and sagittal reconstructions have been obtained. 3-D reconstructions have been obtained. Low dose protocols were performed. One or more of the following dose reduction techniques were used; automated exposure control, adjustment of the mA and/or KV according to patient size, use of iterative reconstruction technique. Findings: Axial sections demonstrate intact base of the skull. C1 exhibit satisfactory relationship to the odontoid. No acute cervical vertebral body fracture seen. Alignment posterior spinous processes satisfactory. Impression: Patient motion degrades again image quality No gross fracture
--- NOTE | 2025-05-14 15:09 | PD.EDADULT ---
ED General RME/HPI General Chief complaint: Seizure Stated complaint: SEIZURE Time Seen by Provider: 05/14/25 14:59 Arrival date/time: 05/14/25 14:57 CC: Seizure HPI patient presents to the ER via EMS who report tachycardia. The patient is postictal with a GCS initially at 8, however patient is responding to questions stating he has a headache . EMS report the patient had on the fifth seizure, fall and striking his head on a household item. Patient has an abrasion to the center forehead and the right side of the neck. Medications that accompanied him were Vimpat and Depakote. Within 2 to 3 minutes after initial assessment at 1509 the patient had a tonic-clonic seizure lasting approximately 40 seconds. Patient given 3 mg of Versed at that time. Related Data Previous Rx's ?Medication ?Instructions ?Recorded divalproex 500 mg tablet,delayed 1,000 mg (2 x 500 mg) PO BID #90 04/08/25 release tabs lacosamide 50 mg tablet 50 mg PO BID #30 tabs 04/08/25 divalproex 500 mg tablet,delayed 1,000 mg (2 x 500 mg) PO Q12H #60 05/05/25 release (Depakote) tabs lacosamide 50 mg tablet (Vimpat) 50 mg PO DAILY #30 tabs 05/05/25 divalproex 500 mg tablet,delayed 1,000 mg (2 x 500 mg) PO BID #60 05/15/25 release tabs lacosamide 50 mg tablet 50 mg PO BID #60 tabs 05/15/25 Allergies Allergy/AdvReac Type Severity Reaction Status Date / Time No Known Allergies Allergy Verified 04/07/25 11:24 Review of Systems Review of Systems ROS Unobtainable: unobtainable due to mental status Past Medical History Past Medical History NEUROLOGIC: Positive Seizures; Negative Neurological Disorders CARDIAC: Negative Cardiac Disorders or Congestive Heart Failure RESPIRATORY: Negative Chronic Obstructive Pulmonary Disease (COPD) GENITOURINARY: Negative Renal Disease ENDOCRINE: Negative Diabetes Mellitus Type 1 or Diabetes Mellitus Type 2 OTHER HISTORY: Positive Hospitalization and Falls; Negative Blood Transfusions, Blood Transfusion Reaction or Anesthesia Reactions Social History SMOKING STATUS: Never smoker SUBSTANCE USE: does not use ED Exam Narrative Physical exam: [General: Recurrent seizures not in any acute distress Head normocephalic center forehead abrasion. HEENT: Eyes: During the seizure patient had left deviated gaze. Within acceptable limits Neck is supple nontender Chest equal chest rise nontender to palpation Respiratory: Clear to auscultation no wheezes crackles or rubs CV: Rate rhythm is regular no murmurs rubs or clicks Abdomen is soft nontender no masses positive bowel sounds all 4 quadrants Back: No CVA tenderness no spinous process tenderness from cervical spine thoracic and lumbar spine Skin: Intact no petechiae rash induration ulceration or crepitus Extremities: Moving all extremity against resistance cap refill less than 2 seconds neurosensory intact Neuro: Awake alert oriented x3 Glascow coma 12 no focal deficits] Course Course Course Narrative: Patient's case discussed with Dr. Lugo and neurologist who agrees to consult on the patient for admission. Quality Measures none Orders Category Date Time Status COVID-19 Screening Questionnaire NOW Care 05/14/25 16:31 Completed Decision to Admit X1 Care 05/14/25 16:31 Completed Saline [Insert IV] NOW Care 05/14/25 15:03 Completed Consult to Neurology / Tele-Neurology Stat Cons 05/14/25 16:[address] cervical spine wo con Stat Exams 05/14/25 15:[address] head/brain wo con Stat Exams 05/14/25 15:02 Completed CBC Stat Lab 05/14/25 15:03 Completed CMP [Comprehensive Metabolic Panel] Stat Lab 05/14/25 15:03 Completed Creatine Kinase Stat Lab 05/14/25 15:03 Completed Drug Screen,Urine Stat Lab 05/14/25 16:30 Completed PT [Prothrombin Time with INR] Stat Lab 05/14/25 15:03 Completed PTT [Partial Thromboplastin Time] Stat Lab 05/14/25 15:03 Completed Urinalysis Stat Lab 05/14/25 16:30 Completed Midazolam Inj [Versed Inj] Med 05/14/25 15:07 Discontinued 3 mg IVP X1 ONE Midazolam Inj [Versed Inj] Med 05/14/25 15:08 Discontinued 4 mg .ROUTE .STK-MED ONE Ondansetron Inj [Zofran Inj] Med 05/14/25 15:07 Discontinued 4 mg IVP X1 ONE Sodium Chloride 0.9% 1000 ml [Ns] 1,000 ml Med 05/14/25 15:04 Discontinued IV 999 mls/hr levETIRAcetam INJ [Keppra Inj] Med 05/14/25 15:02 Discontinued 1,000 mg IVP X1 ONE levETIRAcetam INJ [Keppra Inj] Med 05/14/25 15:13 Discontinued 1,000 mg IVP X1 ONE Vital Signs Vital signs: Vital Signs Temperature 98.3 F 05/14/25 15:12 Pulse Rate 96 05/14/25 15:12 Respiratory Rate 22 H 05/14/25 15:12 Blood Pressure 142/87 H 05/14/25 15:12 Pulse Oximetry (%) 96 05/14/25 15:12 Oxygen Delivery Method Oxy Mask 05/14/25 15:12 Oxygen Flow Rate 15 05/14/25 15:12 Discharge Plan Plan Patient Disposition: Admit Acute Care w/in Hospital Patient condition on transfer: Stable Problem List Clinical Impression: Status epilepticus PA/YOGA COORDINATOR Supervising Physician PA/YOGA COORDINATOR Supervising Physician: Jacob Vance ENP [facility] Labs Labs: interpreted by vt Lab(s) Interpretation(s): CBC shows a leukocytosis of 19.6 no anemia thrombocytopenia PT 11.3 INR 1.1 PTT of 20.1. CMP shows CO2 of 17.2 gap of 22 creatinine 1.4 glucose of 121 no other electrolyte imbalances renal impairment transaminitis or T. bili elevation. Imaging Imaging interpretation: interpreted by me Imaging Interpretation(s): CT head and C-spine is negative as interpreted by radiology. Medication Administration(s) Medication Administration History Discontinued Medications Acetaminophen (Acetaminophen Supp 650 Mg Supp) 650 mg [place] Q6HR PRN PRN Reason: Fever > 100.4 Stop: 06/13/25 17:26 Divalproex Sodium (Divalproex Sod Dr 500 Mg Tablet.Dr) 1,000 mg PO BID [facility] Stop: 06/14/25 08:59 Last Admin: 05/15/25 21:03 Dose: 1,000 mg Documented By: Admin: 05/15/25 08:40 Dose: 1,000 mg Documented By: MGD Sodium Chloride (Ns) 1,000 mls @ 999 mls/hr IV .Q1H1M ONE Stop: 05/14/25 16:04 Last Infusion: 05/14/25 16:30 Dose: Infused Documented By: Admin: 05/14/25 15:25 Dose: 999 mls/hr Documented By: LP Sodium Chloride (Ns) 1,000 mls @ 100 mls/hr IV .Q10H [place] Stop: 05/15/25 03:29 Last Infusion: 05/15/25 06:45 Dose: Infused Documented By: Admin: 05/14/25 17:41 Dose: 100 mls/hr Documented By: SHAKILA Lacosamide (Lacosamide 50 Mg Tablet) 50 mg PO DAILY [place] Stop: 06/14/25 08:59 Last Admin: 05/15/25 08:40 Dose: 50 mg Documented By: NAYE Lacosamide (Lacosamide 50 Mg Tablet) 50 mg PO BID [place] Stop: 06/14/25 20:59 Last Admin: 05/15/25 21:04 Dose: 50 mg Documented By: ABRIL Levetiracetam (Levetiracetam Inj 100 Mg/Ml Vial 5ml) 1,000 mg IVP X1 ONE Stop: 05/14/25 15:03 Last Admin: 05/14/25 15:28 Dose: 1,000 mg Documented By: SHAKILA Levetiracetam (Levetiracetam Inj 100 Mg/Ml Vial 5ml) 1,000 mg IVP X1 ONE Stop: 05/14/25 15:14 Last Admin: 05/14/25 15:48 Dose: 1,000 mg Documented By: SHAKILA Midazolam HCl (Midazolam Inj 1 Mg/Ml Vial 2 Ml) 3 mg IVP X1 ONE Stop: 05/14/25 15:08 Last Admin: 05/14/25 15:12 Dose: 3 mg Documented By: SHAKILA Midazolam HCl (Midazolam Inj 1 Mg/Ml Vial 2 Ml) Confirm Administered Dose 4 mg .ROUTE .STK-MED ONE Stop: 05/14/25 15:09 Last Admin: 05/14/25 16:22 Dose: Not Given Documented By: SHAKILA Non-Admin Reason: Duplicate Medication on eMAR Midazolam HCl (Midazolam Inj 1 Mg/Ml Vial 2 Ml) 3 mg IV Q5MIN PRN; Protocol PRN Reason: seizures Stop: 05/19/25 17:26 Ondansetron HCl (Ondansetron Inj 2 Mg/Ml Inj 2 Ml) 4 mg IVP X1 ONE; Protocol Stop: 05/14/25 15:08 Last Admin: 05/14/25 15:48 Dose: 4 mg Documented By: SHAKILA Ondansetron HCl (Ondansetron Inj 2 Mg/Ml Inj 2 Ml) 4 mg IVP Q6H PRN; Protocol PRN Reason: NAUSEA OR VOMITING Stop: 06/13/25 17:26 Pantoprazole Sodium (Pantoprazole Inj 40 Mg Vial) 40 mg IVP QDAY [facility] Stop: 06/14/25 08:59 Last Admin: 05/15/25 09:34 Dose: 40 mg Documented By: MGD Pantoprazole Sodium (Pantoprazole 40 Mg Tablet) 40 mg PO QDAY [facility] Stop: 06/15/25 08:59
[2025-05-14] MEDS: MIDAZOLAM INJ 1 MG/ML VIAL 2 ML 3 MG IVP (15:12)
[2025-05-14 15:21] LABS: Basophils # (Auto) 0.1 Thou/mm3 (0.0-0.2); Basophils % (Auto) 0 % (0-2.5); Eosinophils # (Auto) 0.1 Thou/mm3 (0.0-0.5); Eosinophils % (Auto) 1 % (0-10); Hematocrit 47.8 % (41.0-53.0); Hemoglobin 15.3 g/dL (13.5-16.0); Immature Granulocytes Auto 0.29 Thou/mm3 (0.00-0.00); Lymphocytes # (Auto) 1.3 Thou/mm3 (1.0-4.8); Lymphocytes % (Auto) 7 % (10-50); Mean Corpuscular HGB Conc 32.0 g/dl (31.0-37.0); Mean Corpuscular Hemoglobin 30.4 pg (25.0-35.0); Mean Corpuscular Volume 95 fL (80-100); Monocytes # (Auto) 1.3 Thou/mm3 (0.0-0.8); Monocytes % (Auto) 7 % (0-12); Neutrophils # (Auto) 16.5 Thou/mm3 (1.8-7.7); Neutrophils % (Auto) 84 % (37-80); Nucleated Red Blood Cell # 0.00 Thou/mm3 (0.00-0.00); Nucleated Red Blood Cell % 0 /100 WBC (0); Platelet Count 169 Thou/mm3 (140-440); RDW Standard Deviation 39.4 fL (35.1-43.9); Red Blood Count 5.04 Miln/mm3 (4.50-5.90); White Blood Count 19.6 Thou/mm3 (3.8-10.6)
[2025-05-14] MEDS: SODIUM CHLORIDE 0.9% 1000 ML 1,000 ML 999 ML IV (15:25)
[2025-05-14] MEDS: levETIRAcetam INJ 100 MG/ML VIAL 5ML 1000 MG IVP ×2 (15:28→15:48)
[2025-05-14 15:43] LABS: INR 1.1 (0.9-1.3); Partial Thromboplastin Time 20.1 Seconds (22.0-36.0); Prothrombin Time 11.3 Seconds (9.0-12.2)
[2025-05-14 15:45] LABS: Alanine Aminotransferase 23 U/L (10-49); Albumin, Serum 5.2 gm/dL (3.5-5.0); Albumin/Globulin Ratio 1.8 (1.2-2.2); Alkaline Phosphatase 64 U/L (46-116); Anion Gap 22 (7-16); Aspartate Amino Transferase 34 U/L (0-34); BUN/Creatinine Ratio 7 Ratio (12-20); Bilirubin,Total 0.6 mg/dL (0.3-1.2); Blood Urea Nitrogen 10 mg/dL (9-23); Calcium 10.0 mg/dL (8.3-10.6); Calcium (Corrected) 10.0 mg/dL (8.5-10.1); Carbon Dioxide 17.6 mMol/L (20.0-31.0); Chloride 103 mMol/L (98-107); Creatinine (Component) 1.4 mg/dL (0.6-1.3); Globulin 2.9 gm/dL (2.3-3.5); Glucose 121 mg/dL (74-106); Osmolality,Calculated 284 (275-295); Potassium 3.9 mMol/L (3.4-5.1); Sodium 143 mMol/L (136-145); Total Protein 8.1 gm/dL (5.7-8.2); eGFR > 60 See Note
[2025-05-14] MEDS: ONDANSETRON INJ 2 MG/ML INJ 2 ML 4 MG IVP (15:48)
[2025-05-14 16:41] LABS: Collection Type, Urine Clean Catch
[2025-05-14 16:56] LABS: Amphetamine/Methamp Scrn,U Negative (Negative); Barbiturate Screen,Urine Negative (Negative); Benzodiazepines Screen,Urine Positive (Negative); Benzoylecgonine Screen, Ur Negative (Negative); Fentanyl Screen,Urine Negative (Negative); Opiate Screen,Urine Negative (Negative); THC Screen,Urine Positive (Negative)
[2025-05-14 17:03] LABS: Bilirubin,Urine Negative (Negative); Blood,Urine 1+ (Negative); Clarity,Urine Clear (Clear/Hazy); Color,Urine Colorless (Lt Yel-Yel); Glucose, Urine Negative (Negative); Ketones,Urine 1+ (Negative); Leukocyte Esterase,Urine Negative (Negative); Nitrite,Urine Negative (Negative); PH,Urine 5.5 (5.0-7.0); Protein,Urine Trace (Neg - Trace); RBC,Urine 1 /hpf (0-3); Specific Gravity,Urine 1.019 (1.001-1.035); Squamous Epithelial Cell,Urine < 1 /hpf (0-5); Urobilinogen,Urine Negative mg/dL (0.0-1.0); WBC,Urine 1 /hpf (0-5)
--- NOTE | 2025-05-14 17:17 | ESHP_ITS ---
<Statement entered by Oleg Phan MD - 05/14/25 19:57> 24 y/o M with PMH of seizures with multiple admissions to the hospital due to breakthrough seizures along with multiple AMA. Was admitted to the hospital due to status epilepticus. Most of the history was taken from chart review as patient was postictal upon assessment. Initially was GCS of 8 in the ED, but afterwards was able to talk to provider. Uyen had 5 seizures at home and in the ED had an additional seizure for a total of 6 prior to admission. During interview had a GCS of 13, but not responding to questions. In summary: #Status Epilepticus Neuro on board, Versed 3mg q5min prn, NPO I have reviewed the note and agree with the resident's assessment & plan with exceptions as above. I have personally reviewed labs, imaging, home meds/prior records, examined the patient, formulated and discussed management plan with my attending Oleg Phan PGY2 Disclaimer: Even though this this note was dictated by speech recognition and even though it was carefully revised there may still be minor errors in custodial aide due to voice recognition software. Documentation for date of: 05/14/25 HPI History of Present Illness Chief complaint: Status epilepticus History of present illness: Note: majority of HPI obtained from chart review due to patient being post- ictal and unable to answer questions HPI: Patient is a 24-year-old male with past medical history of seizure disorder who was presented to the ED by EMS for 5 seizures before admission today. Patient was at home when 5 seizures occurred, and he fell and hit his head on the side of the bathtub with the last of the 5. He takes divalproex and lacosamide for seizures, and has left AMA on multiple occasions previously. Previous recent admission for seizure on 05/05/25; previous encounter of 04/08/25 for breakthrough seizures notable for patient leaving AMA. ED course: GCS on arrival to the ED with 8, but improved so that he was able to answer some questions; he was given 1mg Keppra and 1L NS at that time. Patient then had a 6th tonic-clonic seizure lasting approximately 40 seconds. Patient was given 3 mg of Versed at the time. Patient was subsequently given an additional 1 mg of Keppra. Neurology was consulted stat, and the decision was made to admit for management of status epilepticus. PMH: seizure disorder PSH: None Social history: Denies alcohol, tobacco, or drug use Allergies: NKDA Review of Systems Review of Systems Narrative Review of Systems: Note- unable to obtain full ROS due to altered mentation General: Unable to obtain HEENT: Unable to obtain Heart: Unable to obtain Lungs: Unable to obtain Abdomen: Unable to obtain Genitourinary: Unable to obtain Musculoskeletal: Unable to obtain Neurology: endorses L side pain ROS otherwise negative except what is mentioned above. Exam Vital Signs Temp Pulse Resp BP Pulse Ox O2 Del Method O2 Flow Rate 98.3 F 96 22 H 142/87 H 96 Oxy Mask 15 05/14/25 15:12 05/14/25 15:12 05/14/25 15:12 05/14/25 15:12 05/14/25 15:12 05/14/25 15:12 05/14/25 15:12 Narrative Exam General: A/O x1 (name), mild distress, postictal, well-nourished, well-developed Eyes: PERRL, Anicteric, unable to assess vision secondary to postictal state Ears: Hearing grossly intact. Nose: No nasal discharge. Mouth/Throat: No blood coming from the mouth Neck: Neck supple, non-tender, no cervical lymphadenopathy. Lungs: Clear [place] to auscultation and percussion, No accessory muscle use. Cardio: Normal S1/S2, regular rhythm, no murmurs, no JVD or carotid bruits. Abdomen: Soft, non-tender, no palpable masses, peristalsis present, no guarding or rebound. Extremities: Symmetrical, no significant deformities, no peripheral edema , non-tender, peripheral pulses presents. Skin: No rashes, abrasion on forehead, warm to touch. Neuro: Patient is postictal; GCS is 13 (Eyes 3, Verbal 4, Motor 6). Patient responds to commands but does not answer most questions. Pupils respond to light. Psych: Cooperative, appropriate mood and effect. Results: Labs 05/15/25 05:00 05/15/25 05:00 Labs: Short CBC 05/14/25 Range/Units 15:03 WBC 19.6 H (3.8-10.6) Thou/mm3 Hgb 15.3 (13.5-16.0) g/dL Hct 47.8 (41.0-53.0) % Plt Count 169 (140-440) Thou/mm3 BMP 05/14/25 15:03 Sodium 143 Potassium 3.9 Chloride 103 Carbon Dioxide 17.6 L BUN 10 Creatinine 1.4 H Glucose 121 H Calcium 10.0 Liver Function 05/14/25 Range/Units 15:03 Total Bilirubin 0.6 (0.3-1.2) mg/dL AST 34 (0-34) U/L ALT 23 (10-49) U/L Alkaline Phosphatase 64 (46-116) U/L Albumin 5.2 H (3.5-5.0) gm/dL Urine 05/14/25 Range/Units 16:30 Urine Color Colorless A (Lt Yel-Yel) Urine Clarity Clear (Clear/Hazy) Urine pH 5.5 (5.0-7.0) Ur Specific [place] 1.019 (1.001-1.035) Urine Protein Trace (Neg - Trace) Urine Glucose (UA) Negative (Negative) Quality Measures Quality Measures none Medications Home Medications and Allergies Allergies Allergy/AdvReac Type Severity Reaction Status Date / Time No Known Allergies Allergy Verified 04/07/25 11:24 Visit Medications Discontinued Medications Sodium Chloride (Ns) 1,000 mls @ 999 mls/hr IV .Q1H1M ONE Stop: 05/14/25 16:04 Last Admin: 05/14/25 15:25 Dose: 999 mls/hr Levetiracetam (Levetiracetam Inj 100 Mg/Ml Vial 5ml) 1,000 mg IVP X1 ONE Stop: 05/14/25 15:03 Last Admin: 05/14/25 15:28 Dose: 1,000 mg Levetiracetam (Levetiracetam Inj 100 Mg/Ml Vial 5ml) 1,000 mg IVP X1 ONE Stop: 05/14/25 15:14 Last Admin: 05/14/25 15:48 Dose: 1,000 mg Midazolam HCl (Midazolam Inj 1 Mg/Ml Vial 2 Ml) 3 mg IVP X1 ONE Stop: 05/14/25 15:08 Last Admin: 05/14/25 15:12 Dose: 3 mg Ondansetron HCl (Ondansetron Inj 2 Mg/Ml Inj 2 Ml) 4 mg IVP X1 ONE; Protocol Stop: 05/14/25 15:08 Last Admin: 05/14/25 15:48 Dose: 4 mg Assessment & Plan Plan Patient is a 24-year-old male with past medical history of seizure disorders presenting 05/14/25 for multiple witnessed seizures admitted for status epilepticus. #Status epilepticus #Intractable seizure disorder Patient had 5 witnessed seizures at home, and 1 witnessed tonic-clonic seizure for approximately 40 seconds in the ED (6 total). Patient received 3 mg of Versed in the ED, as well as [address] head negative for hemorrhage, mass, midline shift. CT cervical spine negative for fractures. Neurology consulted, recommended inpatient admission. CBC shows leukocytosis of 19.6. CMP shows AGMA with gap of 22 with a bicarb of 17.6. Creatine kinase was 451. Ddx for seizures: breakthrough seizure, alcohol/drugs, trauma, electrolyte abnormalities Plan: Patient given 3 mg of Versed and 2 mg Keppra in the ED 3 mg Versed every 5 minutes during seizure activity Neurology consulted If patient has additional seizures, strongly consider upgrading to ICU. Patient made n.p.o. secondary to risk of aspiration with further seizure activity Leukocytosis, CK elevation, and AGMA most likely part of postictal response Disposition: Telemetry DVT prophylaxis: SCDs GI prophylaxis: Pantoprazole Diet: N.p.o. Lines: PIV CODE STATUS: Full code This case was discussed with my attending physician, Dr. Delarosa, and senior resident, Dr. Ross. Tanner Jeffers MD-PhD, PGY1 Attending Provider Attestation/Addendum I have discussed and was present for the essential components of the history, physical examination, diagnosis, and treatment plan with the resident. I agree with the patient's care as documented by the resident and amended herein by me. Ilir Delarosa DO. Although this document has been carefully reviewed, there may still be some phonetic and other typographical errors. These errors are purely grammatical due to imperfections in the software program and should not be construed in any way to compromise the substance of the patient's medical care during this visit.
--- NOTE | 2025-05-14 17:30 | PC.NURSE ---
PROVIDER NERIS PEÑA INFORMED OF PT'S CURRENT BP OF 203/147.
[2025-05-14] MEDS: SODIUM CHLORIDE 0.9% 1000 ML 1,000 ML 100 ML IV (17:41)
[2025-05-14 19:30] LABS: Creatine Kinase 451 U/L (34-171)
--- NOTE | 2025-05-14 21:37 | PD.RESCONSUL ---
HPI Data of Consult Requesting Physician: Charlie Delarosa DO Admitting Provider: Charlie Delarosa DO Attending Provider: Charlie Delarosa DO Primary Care Provider: Physician No Primary/Family Consult Narrative Reason for consult: Breakthrough seizures History of present illness: Devi Hahn is 24 yr male with PMH of seizures with multiple admissions to the hospital due to breakthrough seizures. Patient is again presenting to the ED due to breakthrough seizures. Patient stated that he had 5 episodes of seizures before arrival to the ED. Nursing at bedside also had witnessed seizure that lasted for approximately 1 minute. Patient states that he is noncompliant with medications due to issues with work and sleep schedule. Misses multiple doses of his Depakote and lacosamide. Difficult dose 500 mg 2 tablets twice daily and lacosamide 50 mg twice daily. At bedside patient is lethargic but alert and oriented x 3. He was given total of 3 mg Versed and loading dose Keppra. Vitals are stable, all labs significant for leukocytosis 20, elevated anion gap metabolic acidosis, creatinine 1.4, glucose 121. U tox positive for THC. CT head negative for acute hemorrhage, mass effect or midline shift. Neurology consulted for further management of patient's breakthrough seizures. cc:: cc: Charlie Delarosa DO Review of Systems Review of Systems Systems Reviewed: All systems reviewed, normal except as documented Exam Vital Signs Temp Pulse Resp BP Pulse Ox O2 Del Method O2 Flow Rate 99.1 F 101 H 20 115/66 100 Nasal Cannula 3 05/14/25 19:18 05/14/25 19:32 05/14/25 19:32 05/14/25 19:18 05/14/25 19:32 05/14/25 19:18 05/14/25 19:32 Narrative Exam General: Young male, no acute distress, cooperative, fatigue following the siezures HEENT: NCAT, No JVD noted. Mucosa moist. Pupils are equal and reactive to light bilaterally Cardiovascular: Normal S1 and S2. Regular rate and rhythm. Respiratory: Lungs are clear to auscultation bilaterally. No wheezing or crackles heard. Abdomen: Soft, nontender, not distended, normal bowel sounds. Skin: Warm to touch, dry, no rashes noted Musculoskeletal: No gross injuries. Able to move all 4 extremities. No pitting edema Neuro: Alert and oriented x3. No focal neuro deficits. Psych: Normal affect and mood Results Labs 05/15/25 05:00 05/15/25 05:00 Labs: Short CBC 05/14/25 Range/Units 15:03 WBC 19.6 H (3.8-10.6) Thou/mm3 Hgb 15.3 (13.5-16.0) g/dL Hct 47.8 (41.0-53.0) % Plt Count 169 (140-440) Thou/mm3 BMP 05/14/25 15:03 Sodium 143 Potassium 3.9 Chloride 103 Carbon Dioxide 17.6 L BUN 10 Creatinine 1.4 H Glucose 121 H Calcium 10.0 Cardiac Enzymes 05/14/25 Range/Units 15:03 Total Creatine Kinase 451 H (34-171) U/L Liver Function 05/14/25 Range/Units 15:03 Total Bilirubin 0.6 (0.3-1.2) mg/dL AST 34 (0-34) U/L ALT 23 (10-49) U/L Alkaline Phosphatase 64 (46-116) U/L Albumin 5.2 H (3.5-5.0) gm/dL Urine 05/14/25 Range/Units 16:30 Urine Color Colorless A (Lt Yel-Yel) Urine Clarity Clear (Clear/Hazy) Urine pH 5.5 (5.0-7.0) Ur Specific [place] 1.019 (1.001-1.035) Urine Protein Trace (Neg - Trace) Urine Glucose (UA) Negative (Negative) Quality Measures Quality Measures none Medications Home Medications and Allergies Allergies Allergy/AdvReac Type Severity Reaction Status Date / Time No Known Allergies Allergy Verified 04/07/25 11:24 Visit Medications Acetaminophen (Acetaminophen Supp 650 Mg Supp) 650 mg [place] Q6HR PRN PRN Reason: Fever > 100.4 Stop: 06/13/25 17:26 Sodium Chloride (Ns) 1,000 mls @ 100 mls/hr IV .Q10H [place] Stop: 05/15/25 03:29 Last Admin: 05/14/25 17:41 Dose: 100 mls/hr Midazolam HCl (Midazolam Inj 1 Mg/Ml Vial 2 Ml) 3 mg IV Q5MIN PRN; Protocol PRN Reason: seizures Stop: 05/19/25 17:26 Ondansetron HCl (Ondansetron Inj 2 Mg/Ml Inj 2 Ml) 4 mg IVP Q6H PRN; Protocol PRN Reason: NAUSEA OR VOMITING Stop: 06/13/25 17:26 Pantoprazole Sodium (Pantoprazole Inj 40 Mg Vial) 40 mg IVP QDAY [place] Stop: 06/14/25 08:59 Discontinued Medications Sodium Chloride (Ns) 1,000 mls @ 999 mls/hr IV .Q1H1M ONE Stop: 05/14/25 16:04 Last Infusion: 05/14/25 16:30 Dose: Infused Levetiracetam (Levetiracetam Inj 100 Mg/Ml Vial 5ml) 1,000 mg IVP X1 ONE Stop: 05/14/25 15:03 Last Admin: 05/14/25 15:28 Dose: 1,000 mg Levetiracetam (Levetiracetam Inj 100 Mg/Ml Vial 5ml) 1,000 mg IVP X1 ONE Stop: 05/14/25 15:14 Last Admin: 05/14/25 15:48 Dose: 1,000 mg Midazolam HCl (Midazolam Inj 1 Mg/Ml Vial 2 Ml) 3 mg IVP X1 ONE Stop: 05/14/25 15:08 Last Admin: 05/14/25 15:12 Dose: 3 mg Ondansetron HCl (Ondansetron Inj 2 Mg/Ml Inj 2 Ml) 4 mg IVP X1 ONE; Protocol Stop: 05/14/25 15:08 Last Admin: 05/14/25 15:48 Dose: 4 mg Assessment & Plan Plan Devi Hahn is 24 yr male with PMH of seizures with multiple admissions to the hospital due to breakthrough seizures. Patient is again presenting to the ED due to breakthrough seizures. Patient stated that he had 5 episodes of seizures before arrival to the ED. Nursing at bedside also had witnessed seizure that lasted for approximately 1 minute. Issue and noncompliance of seizure medications. Admitted for management. #Tonic-clonic seizures Witnessed seizure in the ED described as mental tensing with jerking. Patient has multiple admissions for breakthrough seizures and issues with noncompliance. Reported to have 5 seizures before arrival to the ED. Was given 3 mg of Versed and loading dose of Keppra in the ED. CT head negative for acute hemorrhage, mass effect or midline shift. - Continue IV Depakote 1000 mg twice daily -Continue lacosamide 50 mg twice daily -Seizure precautions -IV midazolam for breakthrough seizures -Neurochecks every 4 hours -Depakote serum level -Reinforce adherence The patient's management plan was discussed with my attending physician Dr. Lugo. Ade Vick, PGY-2 Attending Provider Attestation/Addendum I have seen and examined the patient at the bedside and I agreed with resident's findings, assessment and plan of care. Patient's clinical presentation with status epilepticus is secondary to noncompliance of medical treatment. Continue with Depakote and Vimpat but changed the Vimpat dose from 50 once a day to 50 twice a day. Will observe him for any breakthrough seizures here. No need for workup.
[2025-05-15] VITALS (7 sets, daily range): BP systolic 105–122; BP diastolic 59–91; PULSE 62–89; RESP 16–20; TEMP 36.5–37.1; O2SAT 93–100; BMI 24.0
[2025-05-15 05:30] LABS: Basophils # (Auto) 0.0 Thou/mm3 (0.0-0.2); Basophils % (Auto) 0 % (0-2.5); Eosinophils # (Auto) 0.0 Thou/mm3 (0.0-0.5); Eosinophils % (Auto) 0 % (0-10); Hematocrit 38.4 % (41.0-53.0); Hemoglobin 13.4 g/dL (13.5-16.0); Immature Granulocytes Auto 0.07 Thou/mm3 (0.00-0.00); Lymphocytes # (Auto) 1.2 Thou/mm3 (1.0-4.8); Lymphocytes % (Auto) 8 % (10-50); Mean Corpuscular HGB Conc 34.9 g/dl (31.0-37.0); Mean Corpuscular Hemoglobin 31.6 pg (25.0-35.0); Mean Corpuscular Volume 91 fL (80-100); Monocytes # (Auto) 1.3 Thou/mm3 (0.0-0.8); Monocytes % (Auto) 10 % (0-12); Neutrophils # (Auto) 11.3 Thou/mm3 (1.8-7.7); Neutrophils % (Auto) 81 % (37-80); Nucleated Red Blood Cell # 0.00 Thou/mm3 (0.00-0.00); Nucleated Red Blood Cell % 0 /100 WBC (0); Platelet Count 164 Thou/mm3 (140-440); RDW Standard Deviation 38.0 fL (35.1-43.9); Red Blood Count 4.24 Miln/mm3 (4.50-5.90); White Blood Count 13.9 Thou/mm3 (3.8-10.6)
[2025-05-15 06:08] LABS: Alanine Aminotransferase 17 U/L (10-49); Albumin, Serum 4.1 gm/dL (3.5-5.0); Albumin/Globulin Ratio 1.7 (1.2-2.2); Alkaline Phosphatase 46 U/L (46-116); Anion Gap 11 (7-16); Aspartate Amino Transferase 20 U/L (0-34); BUN/Creatinine Ratio 9 Ratio (12-20); Bilirubin,Total 1.0 mg/dL (0.3-1.2); Blood Urea Nitrogen 10 mg/dL (9-23); Calcium 8.6 mg/dL (8.3-10.6); Calcium (Corrected) 8.6 mg/dL (8.5-10.1); Carbon Dioxide 26.1 mMol/L (20.0-31.0); Chloride 104 mMol/L (98-107); Creatinine (Component) 1.1 mg/dL (0.6-1.3); Estimated Creatinine Clearance 118.3 mL/min (>60); Globulin 2.4 gm/dL (2.3-3.5); Glucose 89 mg/dL (74-106); Magnesium 1.9 mg/dL (1.6-2.6); Osmolality,Calculated 279 (275-295); Phosphorous 3.0 mg/dL (2.4-5.1); Potassium 3.4 mMol/L (3.4-5.1); Sodium 141 mMol/L (136-145); Total Protein 6.5 gm/dL (5.7-8.2); eGFR > 60 See Note
[2025-05-15] MEDS: DIVALPROEX SOD DR 500 MG TABLET.DR 1000 MG PO ×2 (08:40→21:03)
[2025-05-15] MEDS: LACOSAMIDE 50 MG TABLET PO ×2 (08:40→21:04)
--- NOTE | 2025-05-15 15:01 | ESPR_ITS ---
<Statement entered by Oleg Phan MD - 05/15/25 17:56> I have reviewed the note and agree with the resident's assessment & plan with exceptions as below. I have personally reviewed labs, imaging, home meds/prior records, examined the patient, formulated and discussed management plan with my attending Patient was seen evaluated bedside this morning. No acute overnight events. This morning patient went to leave AGAINST MEDICAL ADVICE and he had signed paperwork and was AO x 4. Spoke with the patient that he would not go to work as no at this time as he was leaving against medical vice and it was not a safe discharge. He stated that his reasons to leave AGAINST MEDICAL ADVICE was that he wanted to go to work and he cannot miss work. Patient changed his mind after was discussed to him that he will get a hospital note upon discharge when he was stable enough to be discharged home. Patient agreed to stay for further evaluation. No other seizures since admission. He also stated that his seizures are likely due to alcohol as he had been drinking quite a lot. Oleg Phan PGY2 Disclaimer: Even though this this note was dictated by speech recognition and even though it was carefully revised there may still be minor errors in customer care consultant due to voice recognition software. Documentation for date of: 05/15/25 Subjective Subjective Interval history: Patient was seen and examined at bedside; no acute events overnight. At approximately 730 this morning, patient informed nursing staff that he wished to leave AGAINST MEDICAL ADVICE to go to work. Patient was informed of the risks of doing this, and he still decided to leave AGAINST MEDICAL ADVICE; he seemed frustrated, and was using foul language at this time. Patient subsequently however changed his mind and is still currently admitted to the hospital; he states that he has been taking his medications as prescribed, and that while alcohol consumption does make him more likely to have seizures, he has not consumed alcohol recently. Of note toxicology screen from yesterday is positive for THC. Nursing stated that he had spit up bright red material this morning; patient states that he bit his tongue during his seizures, and showed me the wound on base of right side of tongue. Exam Vital Signs Temp Pulse Resp BP Pulse Ox O2 Del Method O2 Flow Rate 98.8 F 89 17 122/91 H 95 Nasal Cannula 2 05/15/25 12:00 05/15/25 12:00 05/15/25 12:00 05/15/25 12:00 05/15/25 12:00 05/15/25 12:00 05/15/25 12:00 Narrative Exam General: A/Ox4, well-nourished, well-developed Eyes: PERRL, Anicteric, vision grossly intact Ears: Hearing grossly intact. Nose: No nasal discharge. Mouth/Throat: Wound on the base of the right side of the tongue Neck: Neck supple, non-tender, no cervical lymphadenopathy. Lungs: Clear [place] to auscultation and percussion, No accessory muscle use. Cardio: Normal S1/S2, regular rhythm, no murmurs, no JVD or carotid bruits. Abdomen: Soft, non-tender, no palpable masses, peristalsis present, no guarding or rebound. Extremities: Symmetrical, no significant deformities, no peripheral edema , non-tender, peripheral pulses presents. Skin: No rashes, abrasion on forehead, warm to touch. Neuro: Patient grossly intact neurologically. Psych: Cooperative, appropriate mood and effect. Objective Labs 05/15/25 05:00 05/15/25 05:00 Labs: Laboratory Results - last 24 hr 05/14/25 05/14/25 05/15/25 15:03 16:30 05:00 WBC 19.6 H 13.9 H D RBC 5.04 4.24 L Hgb 15.3 13.4 L Hct 47.8 38.4 L MCV 95 91 MCH 30.4 31.6 MCHC 32.0 34.9 RDW Std Deviation 39.4 38.0 Plt Count 169 164 Neut % (Auto) 84 H 81 H Lymph % (Auto) 7 L 8 L [place] % (Auto) 7 10 Eos % (Auto) 1 0 Baso % (Auto) 0 0 Neut # (Auto) 16.5 H 11.3 H Lymph # (Auto) 1.3 1.2 [place] # (Auto) 1.3 H 1.3 H Eos # (Auto) 0.1 0.0 Baso # (Auto) 0.1 0.0 Immature Gran # (Auto) 0.29 H 0.07 H Absolute Nucleated RBC 0.00 0.00 Immature Gran % 2 H 1 H Nucleated RBC % 0 0 PT 11.3 INR 1.1 APTT 20.1 L Sodium 143 141 Potassium 3.9 3.4 D Chloride 103 104 Carbon Dioxide 17.6 L 26.1 Anion Gap 22 H 11 BUN 10 10 Creatinine 1.4 H 1.1 Estim Creat Clear Calc Not Performed. 118.3 eGFR > 60 > 60 BUN/Creatinine Ratio 7 L 9 L Glucose 121 H 89 Calculated Osmolality 284 279 Calcium 10.0 8.6 Corrected Calcium 10.0 8.6 Phosphorus 3.0 Magnesium 1.9 Total Bilirubin 0.6 1.0 AST 34 20 ALT 23 17 Alkaline Phosphatase 64 46 D Total Creatine Kinase 451 H Total Protein 8.1 6.5 Albumin 5.2 H 4.1 D Globulin 2.9 2.4 Albumin/Globulin Ratio 1.8 1.7 Ur Collection Type Clean Catch Urine Color Colorless A Urine Clarity Clear Urine pH 5.5 Ur Specific [place] 1.019 Urine Protein Trace Urine Glucose (UA) Negative Urine Ketones 1+ A Urine Blood 1+ A Urine Nitrite Negative Urine Bilirubin Negative Urine Urobilinogen (Auto) Negative Ur Leukocyte Esterase Negative Urine RBC 1 Urine WBC 1 Ur Squamous Epith Cells < 1 Urine Bacteria None Urine Opiates Screen Negative Urine Fentanyl Screen Negative Ur Barbiturates Screen Negative U Amphetamin/Meth Scrn Negative U Benzodiazepines Scrn Positive A U Cocaine Metab Screen Negative U Marijuana (THC) Screen Positive A Quality Measures Quality Measures none Assessment & Plan Assessment Current Active Medications: Generic Name Dose Route Start Last Admin Trade Name Freq PRN Reason Stop Dose Admin Acetaminophen 650 mg 05/14/25 17:27 Acetaminophen Supp 650 Mg Supp DE 06/13/25 17:26 Q6HR PRN Fever > 100.4 Divalproex Sodium 1,000 mg 05/15/25 09:00 05/15/25 08:[address] 500 Mg Tablet.Dr PO 06/14/25 08:59 1,000 mg BID MIRACLE Administration Lacosamide 50 mg 05/15/25 09:00 05/15/25 08:40 Lacosamide 50 Mg Tablet PO 06/14/25 08:59 50 mg DAILY MIRACLE Administration Midazolam HCl 3 mg 05/14/25 17:27 Midazolam Inj 1 Mg/Ml Vial 2 Ml IV 05/19/25 17:26 Q5MIN PRN seizures Protocol Ondansetron HCl 4 mg 05/14/25 17:27 Ondansetron Inj 2 Mg/Ml Inj 2 Ml IVP 06/13/25 17:26 Q6H PRN NAUSEA OR VOMITING Protocol Pantoprazole Sodium 40 mg 05/16/25 09:00 Pantoprazole 40 Mg Tablet PO 06/15/25 08:59 QDAY MIRACLE Plan Patient is a 24-year-old male with past medical history of seizure disorders presenting 05/14/25 for multiple witnessed seizures admitted for status epilepticus. #Status epilepticus #Intractable seizure disorder #Wound R side tongue Patient had 5 witnessed seizures at home, and 1 witnessed tonic-clonic seizure for approximately 40 seconds in the ED (6 total). Patient received 3 mg of Versed in the ED, as well as [address] head negative for hemorrhage, mass, midline shift. CT cervical spine negative for fractures. Neurology consulted, recommended inpatient admission. CBC shows leukocytosis of 13.9, which is downtrending from 19.6 yesterday. AGMA with gap of 22 with a bicarb of 17.6-both normalized to gap of 11 and bicarb of 26.1. Creatine kinase was 451 on admission. Patient spit up bright red material this morning, which I saw; he also showed me a wound on the base of the right side of tongue. Ddx for seizures: breakthrough seizure, alcohol/drugs, trauma, electrolyte abnormalities Plan: Patient given 3 mg of Versed and 2 mg Keppra in the ED 3 mg Versed every 5 minutes during seizure activity Neurology consulted, appreciate recommendations If patient has additional seizures, strongly consider upgrading to ICU. Leukocytosis, CK elevation, and AGMA most likely part of postictal response Disposition: Telemetry DVT prophylaxis: SCDs GI prophylaxis: Pantoprazole Diet: Regular Lines: PIV CODE STATUS: Full code This case was discussed with my attending physician, Dr. Barajas, and senior resident, Dr. Ross. Tanner Jeffers MD-PhD, PGY1 Attending Provider Attestation/Addendum I have examined the patient, reviewed labs and imaging findings, discussed the case with the resident(s), and reviewed entered orders. I agree with the plan of care as outlined in this note. Dr. Karl MD
--- NOTE | 2025-05-15 15:34 | PC.SS ---
SS met with patient who is alert/oriented. Patient was able to verify demographics. Patient was admitted for seizure activity. Patient states he resides with his cousin, Roosevelt. Patient is employed at [employer]. He is getting anxious and needs to leave to return to work by tomorrow. Patient will need a written note for his job. Patient does not have d/c orders. Patient follows at the [facility] but his last appt was about a month ago. His Neurologist is Dr. Lugo. Family transports him to all appointments. Pharmacy; [facility]. Patient will return home upon discharge. Alt medical decision maker: Cristel Camacho,
--- NOTE | 2025-05-15 18:47 | PC.NURSE ---
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 DR. MOSES IS AWARE.
--- NOTE | 2025-05-15 19:14 | PC.NURSE ---
dr avila notified of patient stating he wants to leave AMA because he wants to go to work. pt requesting note for work. Dr stewart and [place] came to bedside to educate patient and stated he cannot give him a dr note if he leaves AMA. patient now stating he is unsure if he will leave, pt still aggrivated. Pt waiting for dr hunter consult. Attempted to call dr hunter x2 with no success.
--- NOTE | 2025-05-15 19:29 | ESPR_ITS ---
Documentation for date of: 05/15/25 Subjective Subjective Interval history: Patient examined at bedside. He has remained seizure-free since admission. Vitals are stable, labs downtrending WBC of 14 otherwise unremarkable. Noted that patient was attempting to leave AMA this morning, but decided to stay. At bedside patient appears uninterested and apathetic. Answering questions with minimal responses. Continue current epileptic management and counseling on importance of adherence. Exam Vital Signs Temp Pulse Resp BP Pulse Ox O2 Del Method O2 Flow Rate 98.5 F 67 18 122/80 93 L Room Air 2 05/15/25 16:00 05/15/25 16:00 05/15/25 16:00 05/15/25 16:00 05/15/25 16:00 05/15/25 16:00 05/15/25 12:00 Narrative Exam General: Young male, no acute distress, cooperative, fatigue following the siezures HEENT: NCAT, No JVD noted. Mucosa moist. Pupils are equal and reactive to light bilaterally Cardiovascular: Normal S1 and S2. Regular rate and rhythm. Respiratory: Lungs are clear to auscultation bilaterally. No wheezing or crackles heard. Abdomen: Soft, nontender, not distended, normal bowel sounds. Skin: Warm to touch, dry, no rashes noted Musculoskeletal: No gross injuries. Able to move all 4 extremities. No pitting edema Neuro: Alert and oriented x3. No focal neuro deficits. Psych: Normal affect and mood but somewhat apathetic Objective Labs 05/15/25 05:00 05/15/25 05:00 Labs: Laboratory Results - last 24 hr 05/14/25 05/15/25 15:03 05:00 WBC 13.9 H D RBC 4.24 L Hgb 13.4 L Hct 38.4 L MCV 91 MCH 31.6 MCHC 34.9 RDW Std Deviation 38.0 Plt Count 164 Neut % (Auto) 81 H Lymph % (Auto) 8 L [place] % (Auto) 10 Eos % (Auto) 0 Baso % (Auto) 0 Neut # (Auto) 11.3 H Lymph # (Auto) 1.2 [place] # (Auto) 1.3 H Eos # (Auto) 0.0 Baso # (Auto) 0.0 Immature Gran # (Auto) 0.07 H Absolute Nucleated RBC 0.00 Immature Gran % 1 H Nucleated RBC % 0 Sodium 141 Potassium 3.4 D Chloride 104 Carbon Dioxide 26.1 Anion Gap 11 BUN 10 Creatinine 1.1 Estim Creat Clear Calc 118.3 eGFR > 60 BUN/Creatinine Ratio 9 L Glucose 89 Calculated Osmolality 279 Calcium 8.6 Corrected Calcium 8.6 Phosphorus 3.0 Magnesium 1.9 Total Bilirubin 1.0 AST 20 ALT 17 Alkaline Phosphatase 46 D Total Creatine Kinase 451 H Total Protein 6.5 Albumin 4.1 D Globulin 2.4 Albumin/Globulin Ratio 1.7 Quality Measures Quality Measures none Assessment & Plan Assessment Current Active Medications: Generic Name Dose Route Start Last Admin Trade Name Freq PRN Reason Stop Dose Admin Acetaminophen 650 mg 05/14/25 17:27 Acetaminophen Supp 650 Mg Supp NC 06/13/25 17:26 Q6HR PRN Fever > 100.4 Divalproex Sodium 1,000 mg 05/15/25 09:00 05/15/25 08:[address] 500 Mg Tablet.Dr PO 06/14/25 08:59 1,000 mg BID MIRACLE Administration Lacosamide 50 mg 05/15/25 21:00 Lacosamide 50 Mg Tablet PO 06/14/25 20:59 BID MIRACLE Midazolam HCl 3 mg 05/14/25 17:27 Midazolam Inj 1 Mg/Ml Vial 2 Ml IV 05/19/25 17:26 Q5MIN PRN seizures Protocol Ondansetron HCl 4 mg 05/14/25 17:27 Ondansetron Inj 2 Mg/Ml Inj 2 Ml IVP 06/13/25 17:26 Q6H PRN NAUSEA OR VOMITING Protocol Pantoprazole Sodium 40 mg 05/16/25 09:00 Pantoprazole 40 Mg Tablet PO 06/15/25 08:59 QDAY MIRACLE Plan Devi Hahn is 24 yr male with PMH of seizures with multiple admissions to the hospital due to breakthrough seizures. Patient is again presenting to the ED due to breakthrough seizures. Patient stated that he had 5 episodes of seizures before arrival to the ED. Nursing at bedside also had witnessed seizure that lasted for approximately 1 minute. Issue and noncompliance of seizure medications. Admitted for management. #Tonic-clonic seizures Witnessed seizure in the ED described as mental tensing with jerking. Patient has multiple admissions for breakthrough seizures and issues with noncompliance. Reported to have 5 seizures before arrival to the ED. Was given 3 mg of Versed and loading dose of Keppra in the ED. CT head negative for acute hemorrhage, mass effect or midline shift. - Continue IV Depakote 1000 mg twice daily -Continue lacosamide 50 mg twice daily -Seizure precautions -IV midazolam for breakthrough seizures -Neurochecks every 4 hours -Depakote serum level -Reinforce adherence The patient's management plan was discussed with my attending physician Dr. Lugo. Ade Vick, PGY-2 Attending Provider Attestation/Addendum I personally have seen and examined the patient at the bedside and agreed with the resident's findings, assessment and plan of care. Patient is stable from neurology standpoint for discharge home on Depakote and lacosamide 50 mg twice a day. Advised him about the importance of compliance. Follow-up in 2 weeks in the clinic.
--- NOTE | 2025-05-15 22:23 | PC.NURSE ---
dr hunter at bedside at 2049 to see patient, pt stating he just wants to leave. Dr hunter states pt is clear for discharge. Dr hunter placed orders, education was given to patient, and dr avila was notified that patient was discharged at 2108.
== END 2025-05-15 21:09 | disposition home or self-care (01) | DRG 53 ==
LOC: SERX 16:29 → SERHOLD 17:40 → S3SX 21:38
PROVIDERS: Registered Nurse General Practice; Admitting Provider Student in an Organized Health Care Education/Training Program; Emergency Provider Family Medicine; Visit Provider Student in an Organized Health Care Education/Training Program
DX: G40.911 Epilepsy, unspecified, intractable, with status epilepticus (principal); S00.81XA Abrasion of other part of head, initial encounter; W19.XXXA Unspecified fall, initial encounter; Z91.148 Patient's other noncompliance with medication regimen for other reason; Z79.899 Other long term (current) drug therapy; Y92.009 Unspecified place in unspecified non-institutional (private) residence as the place of occurrence of the external cause
CPT/HCPCS: 36415; 70450; 72125; 80053; 80307; 81001; 82550; 83735; 84100; 85025; 85610; 85730; 93225; 96361; 96374; 96375; 96376; 99284; A4649; J1953; J2250; J2405; J2470; J7030; A9270

== ENCOUNTER 2025-07-23 08:42 | Emergency (ER) | payer MEDICAID, SELFPAY ==
[2025-07-23 09:12] VITALS: BP 122/84; PULSE 82; RESP 18; TEMP 36.6; O2SAT 97; BMI 22.3
--- NOTE | 2025-07-23 09:15 | XR_ITS ---
Examination: CT brain head without contrast. 2-D sagittal coronal reconstructions Date and time of exam: July 23, 2025, 0925 hours INDICATIONS: Dizziness head pain this morning CTDI: vol (mGy): 51.5 DLP: (mGycm): 1124 Technique: Multiple CT axial sections of the brain have been obtained, 5 mm slice thickness. Contrast has not been administered. 2-D sagittal, coronal reconstructions have been obtained Low dose protocols were performed. One or more of the following dose reduction techniques were used; automated exposure control, adjustment of the mA and/or KV according to patient size, use of iterative reconstruction technique. Findings: No significant ventricular enlargement. Intra-axial or extra-axial hemorrhage density is not seen. No mass effect or midline shift Basal cisterns are not remarkable. Fourth ventricle is midline. Cranial vault intact. Impression: Negative for acute hemorrhage, mass effect or midline shift Acute right maxillary sinusitis
--- NOTE | 2025-07-23 09:15 | PD.EDRME ---
Rapid Medical Screening Exam RME Arrival date/time: 07/23/25 08:42 24-year-old male with a history of seizures on Depakote presents to the emergency room with a chief complaint of a headache status post having a seizure at work this morning I have greeted and performed a focused initial assessment of this patient. A comprehensive ED assessment and evaluation of the patient, analysis of all test results, and completion of the medical decision making process will be conducted by additional ED providers. Chief Complaint: Seizure Time Seen by Provider: 07/23/25 09:41 Vital signs: Vital Signs Temperature 97.8 F 07/23/25 09:12 Pulse Rate 82 07/23/25 09:12 Respiratory Rate 18 07/23/25 09:12 Blood Pressure 122/84 07/23/25 09:12 Pulse Oximetry (%) 97 07/23/25 09:12 Oxygen Delivery Method Room Air 07/23/25 09:12 Vital signs reviewed by provider: Yes Exam: GCS of 15 alert and oriented x 3 Clear bilateral lung sounds Strong and regular rhythm Clinical Impression: Seizure/electrolyte imbalance
[2025-07-23] MEDS: LORazepam 2 MG/ML VIAL IVP (09:40)
--- NOTE | 2025-07-23 09:48 | EDNOTE_ITS ---
ED Seizures RME/HPI General Chief Complaint: Seizure Stated Complaint: SEIZURE THIS MORNING, HEADACHE Time Seen by Provider: 07/23/25 09:41 Arrival date/time: 07/23/25 08:42 RME / HPI RME / HPI Narrative: 07/23/25 08:42 24-year-old male with a history of seizures on Depakote presents to the emergency room with a chief complaint of a headache status post having a seizure at work this morning I have greeted and performed a focused initial assessment of this patient. A comprehensive ED assessment and evaluation of the patient, analysis of all test results, and completion of the medical decision making process will be conducted by additional ED providers. ED MAIN EVALUATION DR. JHAVERI, 0923h Patient is a 24-year-old male coming in for evaluation of headache after a seizure. Patient was in lab getting ready for blood drawl when he had another seizure and was brought to ED room 8. Per report there was a seizure this morning, has history of seizures, is on Depakote and Vimpat per chart review. Was complaining of a headache after the seizure this morning, was noted to be sticking his fingers into his mouth and vomiting in the lab room prior to the second seizure. Patient currently postictal and unable to obtain information. Related Data Previous Rx's ?Medication ?Instructions ?Recorded lacosamide 50 mg tablet 50 mg PO BID #30 tabs divalproex 500 mg tablet,delayed 1,500 mg (3 x 500 mg) PO BID #120 07/23/25 release (Depakote) tabs lacosamide 50 mg tablet (Vimpat) 50 mg PO BID #60 tabs 07/23/25 Allergies Allergy/AdvReac Type Severity Reaction Status Date / Time No Known Allergies Allergy Verified 07/23/25 08:45 Review of Systems Review of Systems Systems Reviewed: All systems reviewed, normal except as documented Past Medical History Past Medical History NEUROLOGIC: Positive Seizures OTHER HISTORY: Positive Hospitalization and Falls Social History SMOKING STATUS: Never smoker SUBSTANCE USE: does not use Past Medical History Comments PMH COMMENT: History of seizures ED Exam Narrative Physical exam: Constitutional: initial exam during active tonic-clonic seizure. Snoring respirations briefly afterwards before becoming more alert but altered. HEENT: Normocephalic, atraumatic, extraocular movements intact. Neck: Supple CV: Regular rate and rhythm, no murmurs/rubs/gallops Lungs: Clear to auscultation BL, snoring respirations initial post-ictal, improved after no respiratory distress. Extremities: No deformities, no edema noted Neuro: Active seizure activity followed by postictal state. Moves all 4 extremities equally. Skin: Diaphoretic Course Course Course Narrative: 1228h: On reassessment, the patient is very sleepy but able to state he is not on Depakote; unclear if he is on Keppra or Vimpat and not sure whether he took his medications this morning. The patient shortly after went back to sleep. Will monitor longer. Head CT is negative and labs are otherwise unremarkable. Quality Measures none Orders Category Date Time Status CT head/brain wo con Stat Exams 07/23/25 09:15 Completed CBC Stat Lab 07/23/25 09:50 Completed CMP [Comprehensive Metabolic Panel] Stat Lab 07/23/25 09:50 Completed Drug Screen,Urine Stat Lab 07/23/25 14:00 Completed Free T4 (Free Thyroxine) Stat Lab 07/23/25 09:50 Completed TSH [Thyroid Stimulating Hormone] Stat Lab 07/23/25 09:50 Completed Urinalysis, C/S if Indicated Stat Lab 07/23/25 14:00 Completed LORazepam [Ativan Inj] Med 07/23/25 09:38 Discontinued 2 mg .ROUTE .STK-MED ONE LORazepam [Ativan Inj] Med 07/23/25 09:41 Discontinued 2 mg IVP X1 ONE Valproate Sod Inj [Depacon Inj] 1,000 mg Med 07/23/25 09:43 Discontinued Sodium Chloride 0.9% [Ns] 50 ml IV X1 levETIRAcetam INJ [Keppra Inj] Med 07/23/25 09:41 Discontinued 2,000 mg IVP X1 ONE Vital Signs Vital signs: Vital Signs Temperature 97.8 F 07/23/25 09:12 Pulse Rate 82 07/23/25 09:12 Respiratory Rate 18 07/23/25 09:12 Blood Pressure 122/84 07/23/25 09:12 Pulse Oximetry (%) 97 07/23/25 09:12 Oxygen Delivery Method Room Air 07/23/25 09:12 Pulse ox is 97% on room air which is adequate. Seizure MDM Narrative MDM Narrative:: 24y/o Male here for eval headache after seizure this AM had another seizure in ED prior to my eval. Labs and imaging ordered for further eval and meds given for seizure. CT and labs generally unremarkable. Was given dose of antiepileptic in emergency department. Observed for period of time. Recovered well. Notes that he has occasional seizures and takes Depakote 1500 mg twice daily as well as lacosamide. Will give refill prescriptions for home and advised on close outpatient follow-up with PCP. Patient data External records reviewed:: [facility] previous records Clinical information provided by:: patient Social determinants that could affect healthcare access:: none Patient has the following chronic illnesses:: seizures How is presenting disease/condition affected by chronic disease/condition?: exacerbated by Evaluation data The following diagnostics were reviewed and interpreted by me:: lab results and radiology exam(s) Lab and/or radiology exams considered but not ordered:: None Interpretation Summary: Ordering Physician: Ryan Yanez Date of Service: 07/23/25 Procedure(s): CT head/brain wo con Accession Number(s): [id number] cc: Ryan Yanez; Sin Cabrera MD~ Examination: CT brain head without contrast. 2-D sagittal coronal reconstructions Date and time of exam: July 23, 2025, 0925 hours INDICATIONS: Dizziness head pain this morning CTDI: vol (mGy): 51.5 DLP: (mGycm): 1124 Technique: Multiple CT axial sections of the brain have been obtained, 5 mm slice thickness. Contrast has not been administered. 2-D sagittal, coronal reconstructions have been obtained Low dose protocols were performed. One or more of the following dose reduction techniques were used; automated exposure control, adjustment of the mA and/or KV according to patient size, use of iterative reconstruction technique. Findings: No significant ventricular enlargement. Intra-axial or extra-axial hemorrhage density is not seen. No mass effect or midline shift Basal cisterns are not remarkable. Fourth ventricle is midline. Cranial vault intact. Impression: Negative for acute hemorrhage, mass effect or midline shift Acute right maxillary sinusitis Dictated By: Sin Cabrera MD Signed By: <Electronically signed by Sin Cabrera MD in OV> 07/23/25 0936 Medications / Prescriptions Medications or Prescriptions considered but not ordered:: none Medication administrations:: Medication Administration History Discontinued Medications Valproic Acid 1,000 mg/ Sodium (Chloride) 60 mls @ 50 mls/hr IV X1 ONE Stop: 07/23/25 10:54 Last Infusion: 07/23/25 11:39 Dose: Infused Documented By: Admin: 07/23/25 10:17 Dose: 50 mls/hr Documented By: ANIKET Levetiracetam (Levetiracetam Inj 100 Mg/Ml Vial 5ml) 2,000 mg IVP X1 ONE Stop: 07/23/25 09:42 Last Admin: 07/23/25 10:03 Dose: 2,000 mg Documented By: ANIKET Lorazepam (Lorazepam 2 Mg/Ml Vial) Confirm Administered Dose 2 mg .ROUTE .STK- MED ONE Stop: 07/23/25 09:39 Last Admin: 07/23/25 10:04 Dose: Not Given Documented By: ANIKET Non-Admin Reason: Override Medication Lorazepam (Lorazepam 2 Mg/Ml Vial) 2 mg IVP X1 ONE Stop: 07/23/25 09:42 Last Admin: 07/23/25 09:40 Dose: 2 mg Documented By: ROSETTA Comments: VIAL LOST AFTER ADMIN DUE TO PT ACTIVELY SEIZING AND THRASHING IN BED. GIVEN EMERGENTLY. WITNESSED BY LUCY RN/NERISSA RN See above Consultations Consultation(s) initiated? (list below): No Diagnosis Seizure Differential Diagnosis: focal seizure, generalized seizure and epileptic seizure Most likely diagnosis given after review of the tests above:: Seizure Admission Indicated Admission indicated?: not indicated Admission Request Was there a request for admission?: No Disposition Plan Disposition Plan: Discharge Discharge Attestation Discharge Attestation: The patient and all family members were given an opportunity to ask questions and understood the discharge instructions. Discharge instructions specifically effects, indications for sooner follow up or return to the emergency department, and the expected course of current diagnosis. Patient condition: Stable Critical Care Time Critical Care Time Critical Care Time: Yes Total Critical Care Time (min.): 32 Attestation: The high probability of a clinically significant, sudden or life threatening deterioration required my full and direct attention, intervention and personal management. The aggregate critical care time was [32] minutes. This time is in addition to time spent performing reported procedures but includes the following: [x] Data Review and interpretation [x] Patient assessment and monitoring of vital signs [x] Documentation [x] Medication orders and management Discharge Plan Plan Patient Disposition: HOME (Self Care) Patient condition on transfer: Stable Prescriptions/Referrals Prescriptions/Med Rec: New divalproex [Depakote] 500 mg tablet,delayed release (DR/EC) 1,500 mg PO BID Qty: 120 0RF lacosamide [Vimpat] 50 mg tablet 50 mg PO BID Qty: 60 0RF Discontinued divalproex 500 mg Tablet,Delayed Release (Dr/Ec) 1,000 mg PO BID Qty: 90 2RF divalproex 500 mg Tablet,Delayed Release (Dr/Ec) 1,000 mg PO BID Qty: 60 3RF lacosamide 50 mg Tablet 50 mg PO BID Qty: 60 3RF lacosamide [Vimpat] 50 mg tablet 50 mg PO DAILY Qty: 30 0RF divalproex [Depakote] 500 mg tablet,delayed release (DR/EC) 1,000 mg PO Q12H Qty: 60 0RF No Action lacosamide 50 mg tablet 50 mg PO BID Qty: 30 2RF Referrals: No Primary/Family,Physician [Primary Care Provider] - In 1 week Problem List Clinical Impression: Seizure Patient/Caregiver Discharge Instructions Education Materials: ED Seizure, Recurrent (Adult) Additional Instructions: Some general health principles that can help you are the [employer] principles: Nutrition (eat a plant-based diet, avoiding meats in general, avoiding highly processed foods) Exercise (Daily exercise/walks as tolerated) Water (Drink adequate fresh water to maintain hydration, concentrating on water rather than on soda, coffee, tea, juice, etc for hydration) [place] (Spend time - 15-20 minutes or so with skin exposed in the it systems administrator and late evening sun for Vitamin D health benefits) [place] (Avoid alcohol, illicit drugs, caffeinated beverages, smoking, etc) Air (Deep breathing exercises in the early mornings in fresh air) Rest (Adequate rest at night, going to bed a few hours before midnight and avoiding all screens/television/loud music in the time right before going to bed, also avoiding heavy meals just prior to going to bed) Trust in God (Spend time daily in Bible study and prayer - health benefits in contemplation of God's true character) Additional resources that can benefit: www.[employer], look under resources and seminars. Another good website is www.lifeand[place].org Print Language: Citizen Of [place] Stand Alone Forms: Lucille Award Info., Work/School Release, Patient Portal Info Letter
[2025-07-23] MEDS: levETIRAcetam INJ 100 MG/ML VIAL 5ML 2000 MG IVP (10:03)
[2025-07-23 10:08] LABS: Basophils # (Auto) 0.1 Thou/mm3 (0.0-0.2); Basophils % (Auto) 1 % (0-2.5); Eosinophils # (Auto) 0.2 Thou/mm3 (0.0-0.5); Eosinophils % (Auto) 2 % (0-10); Hematocrit 54.6 % (41.0-53.0); Hemoglobin 17.7 g/dL (13.5-16.0); Immature Granulocytes Auto 0.04 Thou/mm3 (0.00-0.00); Lymphocytes # (Auto) 2.5 Thou/mm3 (1.0-4.8); Lymphocytes % (Auto) 27 % (10-50); Mean Corpuscular HGB Conc 32.4 g/dl (31.0-37.0); Mean Corpuscular Hemoglobin 30.7 pg (25.0-35.0); Mean Corpuscular Volume 95 fL (80-100); Monocytes # (Auto) 1.3 Thou/mm3 (0.0-0.8); Monocytes % (Auto) 14 % (0-12); Neutrophils # (Auto) 5.0 Thou/mm3 (1.8-7.7); Neutrophils % (Auto) 55 % (37-80); Nucleated Red Blood Cell # 0.00 Thou/mm3 (0.00-0.00); Nucleated Red Blood Cell % 0 /100 WBC (0); Platelet Count 265 Thou/mm3 (140-440); RDW Standard Deviation 38.5 fL (35.1-43.9); Red Blood Count 5.76 Miln/mm3 (4.50-5.90); White Blood Count 9.1 Thou/mm3 (3.8-10.6)
--- NOTE | 2025-07-23 10:12 | PC.NURSE ---
LIMITED SEIZURE ASSESSMENT DUE TO PT BEING POST ICTAL AND RECEIVED ATIVAN.
[2025-07-23] MEDS: VALPROATE SOD INJ 1,000 MG in SODIUM CHLORIDE 0.9% 50 ML 50 MG IV (10:17)
[2025-07-23 10:52] LABS: Alanine Aminotransferase 25 U/L (10-49); Albumin, Serum 4.9 gm/dL (3.5-5.0); Albumin/Globulin Ratio 1.4 (1.2-2.2); Alkaline Phosphatase 58 U/L (46-116); Anion Gap 25 (7-16); Aspartate Amino Transferase < 10 U/L (0-34); BUN/Creatinine Ratio 11 Ratio (12-20); Bilirubin,Total 0.6 mg/dL (0.3-1.2); Blood Urea Nitrogen 14 mg/dL (9-23); Calcium 10.2 mg/dL (8.3-10.6); Calcium (Corrected) 10.2 mg/dL (8.5-10.1); Chloride 109 mMol/L (98-107); Creatinine (Component) 1.3 mg/dL (0.6-1.3); Estimated Creatinine Clearance 88.4 mL/min (>60); Free T4 (Free Thyroxine) 1.16 ng/dL (0.89-1.76); Globulin 3.6 gm/dL (2.3-3.5); Glucose 114 mg/dL (74-106); Osmolality,Calculated 293 (275-295); Potassium 4.2 mMol/L (3.4-5.1); Sodium 147 mMol/L (136-145); Thyroid Stimulating Hormone 1.78 uIU/mL (0.55-4.78); Total Protein 8.5 gm/dL (5.7-8.2); eGFR > 60 See Note
[2025-07-23 11:03] LABS: Carbon Dioxide 12.8 mMol/L (20.0-31.0)
[2025-07-23 14:46] LABS: Collection Type, Urine Clean Catch; Squamous Epithelial Cell,Urine 0 /hpf (0-5)
[2025-07-23 15:04] LABS: Amphetamine/Methamp Scrn,U Negative (Negative); Barbiturate Screen,Urine Negative (Negative); Benzodiazepines Screen,Urine Negative (Negative); Benzoylecgonine Screen, Ur Negative (Negative); Fentanyl Screen,Urine Negative (Negative); Opiate Screen,Urine Negative (Negative); THC Screen,Urine Positive (Negative)
[2025-07-23 15:17] LABS: Bacteria,Urine Rare; Bilirubin,Urine Negative (Negative); Blood,Urine Negative (Negative); Clarity,Urine Clear (Clear/Hazy); Color,Urine Lt-Yellow (Lt Yel-Yel); Culture Indicated,Urine Not Indicated; Glucose, Urine Negative (Negative); Ketones,Urine 1+ (Negative); Leukocyte Esterase,Urine Negative (Negative); Nitrite,Urine Negative (Negative); PH,Urine 6.5 (5.0-7.0); Protein,Urine Trace (Neg - Trace); RBC,Urine 1 /hpf (0-3); Specific Gravity,Urine 1.025 (1.001-1.035); Urobilinogen,Urine Negative mg/dL (0.0-1.0); WBC,Urine 1 /hpf (0-5)
[2025-07-23 16:19] VITALS: BP 120/80; PULSE 80; RESP 18; TEMP 36.6; O2SAT 98
== END 2025-07-23 16:20 | disposition home or self-care (01) ==
PROVIDERS: Nurse Practitioner Family; Emergency Provider Family Medicine
DX: R56.9 Unspecified convulsions (principal); J01.00 Acute maxillary sinusitis, unspecified
CPT/HCPCS: 36415; 70450; 80053; 80307; 81001; 84439; 84443; 85025; 96365; 96375; 99283; J1953; J2060